=== PATIENT | female | born 1985 | race African-American/Black ===

== ENCOUNTER 2016-07-01 01:46 | Outpatient (CLI) | payer MEDICAID ==
[2016-07-01 03:13] LABS: APPEARANCE,URINE SLIGHTLY-CLOUDY; BILIRUBIN,URINE NEGATIVE (NEGATIVE); GLUCOSE, URINE NEGATIVE (NEGATIVE); KETONES,URINE TRACE mg/dL (NEGATIVE); LEUKOCYTE ESTERASE,URINE LARGE (NEGATIVE); NITRITE,URINE NEGATIVE (NEGATIVE); PROTEIN,URINE 30 mg/dL (NEGATIVE); URINE SPECIFIC GRAVITY 1.008; UROBILINOGEN,URINE NEGATIVE mg/dL (<2.0)
[2016-07-01 03:14] LABS: URINE BARBITURATES SCREEN NEGATIVE; URINE METHADONE SCREEN NEGATIVE; URINE OPIATES LOW NEGATIVE; URINE PHENCYCLIDINE SCREEN NEGATIVE
--- NOTE | 2016-07-01 04:45 | L&D Admission Assessment ---
LD ADM ASMT Datetime Report Generated by CPN: 07/01/2016 04:45 PATIENT ASSESSMENT Assessment Type: Triage (07/01/2016 02:16:Isis Aiken) WEIGHT Weight (lb): 139 (07/01/2016 02:03:QS system process) Weight (kg): 63.2 (07/01/2016 02:03:QS system process) PAIN Pain Scale: 3 (07/01/2016 02:16:Isis Aiken) Pain Presence: Constant (07/01/2016 02:16:Isis Aiken) Pain Type: Cramping (07/01/2016 02:16:Isis Aiken) Pain Location: Back (07/01/2016 02:16:Isis Aiken) Pain Goal: 0 (07/01/2016 02:16:Isis Aiken) Pain Related to Contraction: No (07/01/2016 02:16:Isis Aiken) CONTRACTIONS Frequency (min): none (07/01/2016 02:45:Isis Aiken) Resting Tone [place]: Relaxed (07/01/2016 02:45:Isis Aiken) NEURO Level of Consciousness: Fully Conscious (07/01/2016 02:16:Isis Aiken) DTR's/Clonus: DTRs 2+; No Clonus (07/01/2016 02:16:Isis Aiken) Headache: Denies (07/01/2016 02:16:Isis Aiken) Dizziness: No (07/01/2016 02:16:Isis Aiekn) Blurred Vision: No (07/01/2016 02:16:Isis Aiken) Extremity Numbness/Tingling : None (07/01/2016 02:16:Isis Aiken) Extremity Movement: Full Range of Motion (07/01/2016 02:16:Isis Aiken) CARDIOVASCULAR Heart Rhythm: Regular (07/01/2016 02:16:Isis Aiken) Nailbeds: [place] (07/01/2016 02:16:Isis Aiken) Capillary Refill: Less than 3 Seconds (07/01/2016 02:16:Isis Aiken) Lower Extremities Edema: None (07/01/2016 02:16:Isis Aiken) Lower Extremities Edema Degree: None (07/01/2016 02:16:Isis Aiken) Upper Extremities Edema: None (07/01/2016 02:16:Isis Aiken) Upper Extremities Edema Degree: None (07/01/2016 02:16:Isis Aiken) Facial Edema: None (07/01/2016 02:16:Isis Aiken) DVT RISK ASSESSMENT DVT Risk Age: Age less than 41 years (07/01/2016 02:16:Isis Aiken) DVT Risk BMI: BMI<31 (07/01/2016 02:16:Isis Aiken) DVT Risk Surgery: None Applicable (07/01/2016 02:16:Isis Aiken) DVT Risk Other: Women Only- or (<1 month) (07/01/2016 02:16:Isis Aiken) DVT Risk Total: 1 (07/01/2016 02:16:QS system process) DVT Risk Text: Low Risk (<10%) No specific measures, early ambulation (07/01/2016:16:QS system process) RESPIRATORY Respiratory Effort: Unlabored (07/01/2016 02:16:Isis Aiken) Breath Sounds, Left: Clear and Equal (07/01/2016 02:16:Isis Aiken) Breath Sounds, Right: Clear and Equal (07/01/2016 02:16:Isis Aiken) Cough Productivity: None (07/01/2016 02:16:Isis Aiken) GASTROINTESTINAL Nausea/Vomiting: Denies (07/01/2016 02:16:Isis Aiken) Bowel Sounds: Normoactive (07/01/2016 02:16:Isis Aiken) RUQ Epigastric Pain: Denies (07/01/2016 02:16:Isis Aiken) Bowel Patterns: Soft, Formed Stool (07/01/2016 02:16:Isis Aiken) Hemorrhoids: None (07/01/2016 02:16:Isis Aiken) Diet Type: Regular diet (07/01/2016 02:16:Isis Aiken) Last Meal: 07/01/2016 21:00 (07/01/2016 02:16:Isis Aiken) GENITOURINARY Bladder: Nondistended (07/01/2016 02:16:Isis Aiken) Frequency of Urination: No (07/01/2016 02:16:Isis Aiken) Urination Burning: No (07/01/2016 02:16:Isis Aiken) CVA Tenderness: No (07/01/2016 02:16:Isis Aiken) Vaginal Bleeding: None (07/01/2016 02:16:Isis Aiken) Vaginal Discharge Amount: None (07/01/2016 02:16:Isis Aiken) INTEGUMENTARY Skin Color: Normal for Race (07/01/2016 02:16:Isis Aiken) Skin Temperature: Warm (07/01/2016 02:16:Isis Aiken) Skin Moisture: Dry (07/01/2016 02:16:Isis Aiken) Surgical Scars: previous c/s abdomin (07/01/2016 02:16:Isis Aiken) Body Piercings/Tattoos: tatoos x5 ears pierced (07/01/2016 02:16:Isis Aiken) WILLIAM SKIN ASSESSMENT William Scale Sensory Perception: No Impairment- Responds to verbal commands. Has no sensory deficit which would limit ability to feel or voice pain or discomfort (07/01/2016 02:16:Isis Aiken) William Scale Moisture: Rarely Moist- Skin is usually dry. Linen only requires changing at routine intervals (07/01/2016 02:16:Isis Aiken) William Scale Activity: Walks Frequently- Walks outside the room at least twice a day and inside room at least every 2 hours during the day. (07/01/2016 02:16:Isis Aiken) William Scale Mobility: No Limitations- Makes major and frequent changes in position without assistance (07/01/2016 02:16:Isishenok Aiken) William Scale Nutrition: Excellent- Eats most of every meal. Never refuses a meal. Usually eats a total of 4 or more servings of meat and dairy products. Occasionally eats between meals. Does not require supplementation (07/01/2016 02:16:Isis Aiken) William Scale Friction and Shear: No Apparent Problem- Moves in bed and in chair independently and has sufficient muscle strength to lift up completely during move. Maintains good position in bed or chair at all times (07/01/2016 02:16:Isis Aiken) William Scale Total: 23 (07/01/2016 02:16:QS system process) William Scale Risk: No Risk of Pressure Ulcer Noted at this Time (07/01/2016 02:16:QS system process) SUPPORT Family Support: Significant Other supportive, at bedside frequently (07/01/2016 02:16:Isis Aiken) Emotional State: Calm/Relaxed (07/01/2016 02:16:Isis Aiken) SAFETY Call De La Torre Within Reach: Yes (07/01/2016 02:16:Isis Aiken) Side Rails Up: Yes (07/01/2016 02:16:Isis Aiken) Bed Wheels Locked: Yes (07/01/2016 02:16:Isis Aiken) Arm Bands Present: Yes (07/01/2016 02:16:Isis Aiken) Isolation: [place] (07/01/2016 02:16:Isis Aiken) FALL SCREEN Fall Risk History of Falling: (0) No (07/01/2016 02:16:Isis Aiken) Fall Risk Secondary Diagnosis: (0) No (07/01/2016 02:16:Isis Attila) Fall Risk Ambulatory Aid: (0) None/Bedrest/Wheelchair/Nurse Assist (07/01/2016 02:16:Isis Aiken) Fall Risk IV Therapy: (0) No (07/01/2016 02:16:Isis Aiken) Fall Risk Gait: (0) Normal/Bedrest/Immobile (07/01/2016 02:16:Isis Aiken) Fall Risk Mental Status: (0) Oriented to Own Ability (07/01/2016 02:16:Isis Aiken) Fall Risk Score: 0 (07/01/2016 02:16:QS system process) Fall Risk Score Definition: No Risk: No action required (07/01/2016 02:16:QS system process) RECENT TRAVEL/INFECTIOUS DISEASE Recent Exp Communicable Disease: No (07/01/2016 02:16:Isishenok Aiken) Cough or Fever: No (07/01/2016 02:16:Isis Attila) Foreign Travel Past 10 Days: No (07/01/2016 02:16:Isishenok Aiken) Open Wounds or Sores: No (07/01/2016 02:16:Isishenok Aiken) Prior Antibiotic Resistance Tx: No (07/01/2016 02:16:Isis Attila) BABY A FHR Baseline Rate (bpm) Baby A: 150 (07/01/2016 02:05:Isishenok Aiken)
--- NOTE | 2016-07-01 04:45 | L&D General Admission ---
General Admit Datetime Report Generated by CPN: 07/01/2016 04:45 INFORMATION Patient Age: 31 (07/01/2016 01:47:QS system process) EDC: 11/16/2016 00:00 (07/01/2016 02:01:Isis Aiken) : 3 (07/01/2016 02:01:Isis Aiken) Para: 2 (07/01/2016 02:01:Isis Aiken) Term: 1 (07/01/2016 02:01:Isis Aiken) : 1 (07/01/2016 02:01:Isis Aiken) Livin (07/01/2016 02:01:Isis Aiken) Cesareans: 2 (07/01/2016 02:01:Isis Aiken) Baby, Number in Womb: 1 (07/01/2016 02:01:Isis Aiken) CARE Primary Harp Action Assembler: [facility] (07/01/2016 02:01:Isis Aiken) Height (in): 60 (07/01/2016 02:03:QS system process) ALLERGIES Medication Allergy: No (07/01/2016 02:01:Isis Aiken) Medication Allergies: No Known Drug Allergies (07/01/2016) (07/01/2016 02:02:QS system process) Latex Allergy: No Latex Allergies (07/01/2016 02:01:Isis Aiken) Food Allergies: none (07/01/2016 02:01:Isis Aiken) Environmental Allergies: none (07/01/2016 02:01:Isis Aiken) COMMUNICATION Primary Language: Macanese (07/01/2016 02:01:Isis Aiken) Medical Tx Preferred Language: Macanese (07/01/2016 02:01:Isis Aiken) DEMOGRAPHICS Address: [address] [place] [address] [place] [address] (07/01/2016 01:47:QS system process) Zipcode: [address] (07/01/2016 01:47:QS system process) Home (07/01/2016 01:47:QS system process) SSN: [id number] (07/01/2016 01:47:QS system process) Next of Kin Name: LAYO HERNANDEZ (07/01/2016 01:47:QS system process) Next of Kin (07/01/2016 01:47:QS system process) Next of Kin Relationship: MO (07/01/2016 01:47:QS system process) Date of : 1985 (07/01/2016 01:47:QS system process) Marital Status: Single (07/01/2016 01:47:QS system process) Sex: Female (07/01/2016 01:47:QS system process) Race: (07/01/2016 01:47:QS system process) Ethnicity: Non- or (07/01/2016 01:47:QS system process) Scientologist: None (07/01/2016 01:47:QS system process) DRUG AND ALCOHOL USE Alcohol: No (07/01/2016 02:01:Isis Aiken) Cigarettes: Never Smoker. [id number] (07/01/2016 02:01:Isis Aiken) Marijuana: No (07/01/2016 02:01:Isis Aiken) Cocaine: No (07/01/2016 02:01:Isis Aiken) Other Illicit Drugs: No (07/01/2016 02:01:Isis Aiken) VACCINE HISTORY Influenza Vaccine: Yes (07/01/2016 02:01:Isis Aiken) Influenza Date: 2016 (07/01/2016 02:01:Isis Aiken) Pneumococcal Vaccine: No (07/01/2016 02:01:Isis Aiken) Tetanus Vaccine: No (07/01/2016 02:01:Isis Aiken) Tdap Vaccine: No (07/01/2016 02:01:Isis Aiken) Hepatitis B Vaccine: No (07/01/2016 02:01:Isis Aiken) Sleeve Setter Lockstitch: [facility] (07/01/2016 02:01:Isis Aiken) Feeding Preference: Both (07/01/2016 02:01:Isis Aiken) Circumcision: Yes (07/01/2016 02:01:Isis Aiken) Tubal Ligation: No (07/01/2016 02:01:Isis Aiken) Tubal Authorization Signed: No (07/01/2016 02:01:Isis Aiken) Consent: N/A (07/01/2016 02:01:Isis Aiken) Consent Signed: No (07/01/2016 02:01:Isis Aiken) Pain Management Plans: Spinal (07/01/2016 02:01:Isis Aiken) Support Person: Chris (07/01/2016 02:01:Isis Aiken) Support Person Relationship: Significant Other (07/01/2016 02:01:Isis Aiken) LIVING SITUATION/DISCHARGE PLAN Living Arrangements: House (07/01/2016 02:01:Isis Aiken) Adequate Access to:: Electric; Heat; Refrigeration; Plumbing/Running water; Phone; Transportation (07/01/2016 02:01:Isis Aiken) WIC Program: Yes (07/01/2016 02::Isis Aiken) Discharge Knocker Off Person: Chris (07/01/2016 02:01:Isis Aiken) Person to Help after Discharge: Chris (07/01/2016 02:01:Isis Aiken) Currently Using Commun Resources: Yes (07/01/2016 02:01:Isis Aiken) Specify Current Resource Used: [facility] (07/01/2016 02:01:Isis Aiken) OB/PREVIOUS HISTORY Previous Procedures: Ultrasound; NST (07/01/2016 02:01:Isis Aiken) Current Procedures: Ultrasound; NST (07/01/2016 02:01:Isis Aiken) History of Previous : No (07/01/2016 02:01:Isis Aiken) History of Gestational Diabetes: No (07/01/2016 02:01:Isis Aiken) History of PIH: No (07/01/2016 02:01:Isis Aiken) History of Incompetent Cervix: No (07/01/2016 02:01:Isis Aiken) History of Placenta Previa/Abrup: No (07/01/2016 02:01:Isis Aiken) History of Macrosomia: No (07/01/2016 02:01:Isis Aiken) History of IUGR: No (07/01/2016 02:01:Isis Aiken) History of Hemorrhage: No (07/01/2016 02:01:Isis Aiken) History of Loss/Stillborn: No (07/01/2016 02:01:Isis Aiken) History of : No (07/01/2016 02:01:Isis Aiken) History of D (Rh) Sensitization: No (07/01/2016 02:01:Isis Aiken) History Recurrent Loss/Stillborn: No (07/01/2016 02:01:Isis Aiken) History Depression/PP Depression: No (07/01/2016 02:01:Isis Aiken) History of Uterine Anomaly/TRENTON: No (07/01/2016 02:01:Isis Aiken) History of Infertility: No (07/01/2016 02:01:Isis Aiken) History of ART Treatment: No (07/01/2016 02:01:Isis Aiken) History of TRENTON: No (07/01/2016 02:01:Isis Aiken) Comments Obstetrical History: G1-2008 39weeks-c/s for failure to progress G2-2008 32weeks placenta abruption repeat c/s G3-2016 current (07/01/2016 02:01:Isis Aiken) MEDICAL HISTORY Med Hx Diabetes: No (07/01/2016 02:01:Isis Aiken) Med Hx Hypertension: No (07/01/2016 02:01:Isis Aiken) Med Hx Heart Disease: No (07/01/2016 02:01:Isis Aiken) Med Hx Autoimmune Disorder: No (07/01/2016 02:01:Isis Aiken) Med Hx Kidney Disease/UTI: No (07/01/2016 02:01:Isis Aiken) Med Hx Neurologic/Epilepsy: No (07/01/2016 02:01:Isis Aiken) Med Hx Psychiatric Disorders: No (07/01/2016 02:01:Isis Aiken) Med Hx Hepatitis/Liver Disease: No (07/01/2016 02:01:Isis Aiken) Med Hx Varicosities/Phlebitis: No (07/01/2016 02:01:Isis Aiken) Med Hx Thyroid Dysfunction: No (07/01/2016 02:01:Isis Aiken) Med Hx Trauma/Violence: No (07/01/2016 02:01:Isis Aiken) Med Hx Blood Transfusion: No (07/01/2016 02:01:Isis Aiken) Med Hx Pulmonary (Asthma,TB): Yes (07/01/2016 02:01:Isis Aiken) Med Hx Breast: No (07/01/2016 02:01:Isis Aiken) Med Hx APPLICATIONS SUPPORT SPECIALIST Surgery: No (07/01/2016 02:01:Isis Aiken) Med Hx Hospitalization/Surgery: No (07/01/2016 02:01:Isis Aiken) Med Hx Anesthetic Complications: No (07/01/2016 02:01:Isis Aiken) Med Hx Abnormal Pap Smear: No (07/01/2016 02:01:Isis Aiken) Other Medical Diseases: No (07/01/2016 02:01:Isis Aiken) Med Hx Significant Family Hx: No (07/01/2016 02:01:Isis Aiken) Details of Med/Surg Hx: rescue inhaler if needed (07/01/2016 02:01:Isis Aiken) INFECTIOUS HISTORY Inf Hx Gonorrhea: No (07/01/2016 02:01:Isis Aiken) Inf Hx Chlamydia: No (07/01/2016 02:01:Isis Aiken) Inf Hx Syphilis: No (07/01/2016 02:01:Isis Aiken) Inf Hx HIV/AIDS: No (07/01/2016 02:01:Isis Aiken) Inf Hx Human Papilloma Virus: No (07/01/2016 02:01:Isis Aiken) Inf Hx Pt/Partner Genital Herpes: No (07/01/2016 02:01:Isis Aiken) Inf Hx Tuberculosis/Exposure: No (07/01/2016 02:01:Isis Aiken) Inf Hx Hepatitis B,C: No (07/01/2016 02:01:Isis Aiken) Inf Hx Rash or Viral Illness: No (07/01/2016 02:01:Isis Aiken) GENETIC HISTORY Gen Hx Age >=35 at [place]ER[place]: No (07/01/2016 02:01:Isis Aiken) Gen Hx Thalassemia: No (07/01/2016 02:01:Isis Aiken) Gen Hx Congenital Heart Defect: No (07/01/2016 02:01:Isis Aiken) Gen Hx Neural Tube Defect: No (07/01/2016 02:01:Isis Aiken) Gen Hx Down's Syndrome: No (07/01/2016 02:01:Isis Aiken) Gen Hx Brayan-Sachs: No (07/01/2016 02:01:Isis Aiken) Gen Hx Radha: No (07/01/2016 02:01:Isis Aiken) Gen Hx Familial Dysautonomia: No (07/01/2016 02:01:Isis Aiken) Gen Hx Sickle Cell Disease/Trait: No (07/01/2016 02:01:Isis Aiken) Gen Hx Hemophilia/Blood Disorder: No (07/01/2016 02:01:Isis Aiken) Gen Hx Muscular Dystrophy: No (07/01/2016 02:01:Isis Aiken) Gen Hx Cystic Fibrosis: No (07/01/2016 02:01:Isis Aiken) Gen Hx Huntingtons Chorea: No (07/01/2016 02:01:Isis Aiken) Gen Hx Mental Retardation/Autism: No (07/01/2016 02:01:Isis Aiken) Gen Hx Tested for Fragile X: No (07/01/2016 02:01:Isis Aiken) Gen Hx Other Inher/Chromosomal: No (07/01/2016 02:01:Isis Aiken) Gen Hx Maternal Metabolic DO: No (07/01/2016 02:01:Isis Aiken) Gen Hx Pt Father or FOB Defect: No (07/01/2016 02:01:Isis Aiken) Gen Hx Other Genetic History: No (07/01/2016 02:01:Isis Aiken) Gen Hx Drugs/Meds since LMP: No (07/01/2016 02:01:sIis Aiken)
--- NOTE | 2016-07-01 04:45 | L&D Current Admission ---
Current Admit Datetime Report Generated by CPN: 07/01/2016 04:45 ADMISSION INFORMATION Chief Complaint: back pain bilateral sides possible kidney stone (07/01/2016 02:16:Isis Attila)
--- NOTE | 2016-07-01 04:45 | L&D Flow Sheet ---
LD Flowsheet Datetime Report Generated by CPN: 07/01/2016 04:45 Datetime: 07/01/2016 02:57 Patient Care Comments: patient transfered to ER via wheelchair in stable condition. (Isis Aiken) Datetime: 07/01/2016 02:50 Patient Care Comments: Discussed with the patient plan of care. Patient verbalized understanding. (Isis Aiken) Datetime: 07/01/2016 02:48 Communication Provider Notified (Name): Jose Guadalupe Rizvi CNM at the desk informed of the patient. 20.2 previous and history of placenta abruption. The patient presents with bilateral back pain. She had what appears to be a kidney stone come out at home. FHR 150 no contractions noted. Orders recieved to transfer patient down to ER for further evaluation. (Isis Aiken) Datetime: 07/01/2016 02:45 Vital Signs NBP Sys/Jenni/Mean (mmHg): 90 (QS system process) : 62 (QS system process) : 69 (QS system process) Pulse: 110 (QS system process) Uterine Activity Monitor Mode: External; Palpation (Isis Aiken) Frequency (min): none (Isis Aiken) Resting Tone (Palpate): Relaxed (Isis Aiken) Datetime: 07/01/2016 02:25 I/O Interventions: Clear Liquids Given (Isis Aiken) Datetime: 07/01/2016 02:16 Pain Pain Scale: 3 (Isis Aiken) Pain Presence: Constant (Isis Aiken) Pain Type: Cramping (Isis Aiken) Pain Location: Back (Isis Aiken) Pain Goal: 0 (Isis Aiken) Vaginal Exam Vaginal Bleeding: None (Isis Aiken) Maternal Assessment Level of Consciousness: Fully Conscious (Isis Aiken) DTR's/Clonus: DTRs 2+; No Clonus (Isis Aiken) Headache: Denies (Isis Aiken) Breath Sounds, Left: Clear and Equal (Isis Aiken) Breath Sounds, Right: Clear and Equal (Isis Aiken) Nausea/Vomiting: Denies (Isis Aiken) RUQ Epigastric Pain: Denies (Isis Aiken) Patient Care Patient Position/Activity: Left Lateral (Isis Aiken) Teaching Instructional Method: Verbal (Isis Aiken) Plan of Care: Plan of Care Discussed (Isis Aiken) Unit Routine: [place] to Room; Call De La Torre; Bed; Monitoring (Isis Aiken) Datetime: 07/01/2016 02:05 Assessment A FHR Baseline Rate : 150 (Isis Aiken) Datetime: 07/01/2016 01:57 Patient Care Comments: patient to the unit for labor check (Isis Aiken)
--- NOTE | 2016-07-01 04:45 | L&D Discharge Summary ---
OB Discharge Summary Datetime Report Generated by CPN: 07/01/2016 04:45 DISCHARGE DIAGNOSIS Diagnosis/Symptoms: False Labor Number of Babies in Womb: 1 Parity: 2 DIET/ACTIVITY/RESTRICTIONS Diet: Regular Activity: Normal Activity TEACHING/INSTRUCTIONS/REFERRALS Instructions Given To: patient Instructions Understood: Patient Verbalized Understanding Referrals: None DISCHARGE INFORMATION Discharge Date/Time: 07/01/2016 03:01 Discharged To: Home Discharge Provider Name: J Rizvi CNM Accompanied By: self Discharge Method: Wheelchair Condition: Stable FOLLOW UP INFORMATION Follow Up With: [facility] Follow Up On: 1-2 Days Follow Up Phone Number: [facility] -
--- NOTE | 2016-07-01 04:46 | Antepartum Discharge Summary ---
Antepartum DC Datetime Report Generated by CPN: 07/01/2016 04:45 DIET/ACTIVITY/RESTRICTIONS Diet: Regular (07/01/2016 03:01:Isis Aiken) Activity: Normal Activity (07/01/2016 03:01:Isis Aiken) TEACHING/INSTRUCTIONS/REFERRALS Instructions Given To: patient (07/01/2016 03:01:Isis Aiken) Instructions Understood: Patient Verbalized Understanding (07/01/2016 03:01:Isis Aiken) Referrals: None (07/01/2016 03:01:Isis Aiken) DISCHARGE INFORMATION Discharge Date/Time: 07/01/2016 03:01 (07/01/2016 03:01:Isis Aiken) Discharged To: Home (07/01/2016 03:01:Isis Aiken) Discharge Provider Name: Jose Guadalupe Rizvi CN (07/01/2016 03:01:Isis Aiken) Accompanied By: self (07/01/2016 03:01:Isis Aiken) Discharge Method: Wheelchair (07/01/2016 03:01:Isis Aiken) Condition: Stable (07/01/2016 03:01:Isis Aiken) FOLLOW UP INFORMATION Follow Up With: [facility] (07/01/2016 03:01:Isis Aiken) Follow Up On: 1-2 Days (07/01/2016 03:01:Isis Aiken) Follow Up Phone Number: [facility] - (07/01/2016 03:01:Isis Aiken)
== END 2016-07-01 03:00 | disposition home or self-care (01) ==
LOC: LC 01:46
PROVIDERS: ATTEND Student in an Organized Health Care Education/Training Program
PROC: 4A1HXCZ Monitoring of Products of Conception, Cardiac Rate, External Approach (ICD-10-PCS; principal; 2016-07-01)
DX: O47.02 False labor before 37 completed weeks of gestation, second trimester (principal); Z3A.20 20 weeks gestation of pregnancy
CPT/HCPCS: 80307; 81001

== ENCOUNTER 2016-07-01 03:11 | Emergency (ER) | payer MEDICAID ==
[2016-07-01] MEDS ORDERED: CEFTRIAXONE 1 GM/D5W RTU 50 ML IV ONE (03:54)
[2016-07-01] MEDS ORDERED: OXYCODONE-ACETAMINOPHEN 5-325 MG TABLET PO ONE (04:02)
[2016-07-01] MEDS ORDERED: CEFTRIAXONE INJ 1000 MG VIAL IM ONE (04:02)
[2016-07-01] MEDS ORDERED: LIDOCAINE 1% INJ-PF (10 MG/ML) 30 ML SDV INFIL ONE (04:02)
--- NOTE | 2016-07-01 04:12 | ER Document Report ---
ED GI/ - General Mode of Arrival: Ambulatory Information source: Patient TRAVEL OUTSIDE OF THE [place] IN LAST 30 DAYS: No - HPI Patient complains to provider of: Other - lower back pain Associated symptoms: Other - See above - General Chief Complaint: Possible Kidney Stone Stated Complaint: lower back pain Notes: Patient is a 31 year old female who presents to the emergency department complaining of low back pain. Patient reports that the pain came on all of a sudden and is located across her lower back. Patient states that she passed what she believes to be a kidney stone this evening and has it in a specimen cup. Patient reports that she has been taking Tylenol for the pain with little to no relief. Patient denies nausea. (CHRISTINE GARCIA) - Related Data Allergies/Adverse Reactions: No Known Drug Allergies Allergy (Verified 07/01/16 02:01) Past Medical History - General Information source: Patient - Social History Smoking Status: Unknown if Ever Smoked Family History: Reviewed & Not Pertinent Patient has suicidal ideation: No Patient has homicidal ideation: No Review of Systems - Review of Systems Constitutional: No symptoms reported EENT: No symptoms reported Cardiovascular: No symptoms reported Respiratory: No symptoms reported Gastrointestinal: denies: Nausea Genitourinary: No symptoms reported Female Genitourinary: See HPI, Musculoskeletal: See HPI, Back pain - lower Skin: No symptoms reported Hematologic/Lymphatic: No symptoms reported Neurological/Psychological: No symptoms reported -: Yes All other systems reviewed and negative Physical Exam - Vital signs Interpretation: Normal - General General appearance: Alert, Other - Appears uncomfortable - HEENT Head: Normocephalic, Atraumatic - Respiratory Respiratory status: No respiratory distress - Back Back: Other - Flanks tender to palpation bilaterally - Extremities General upper extremity: Normal inspection General lower extremity: Normal inspection - Neurological Neuro grossly intact: Yes Cognition: Normal Orientation: AAOx4 Fernandez Coma Scale Eye Opening: Spontaneous Fernandez Coma Scale Verbal: Oriented Fernandez Coma Scale Motor: Obeys Commands [place] Coma Scale Total: 15 Speech: Normal - Psychological Associated symptoms: Normal affect, Normal mood - Skin Skin Temperature: Warm Skin Moisture: Dry Skin Color: Normal Course - Re-evaluation Re-evalutation: 07/01/16 05:33 Patient improved after antibiotics and pain medication. Able to take by mouth. Patient will be discharged home and is to follow-up with her DIRECTOR RADIO. Culture has been sent. Stone has been sent for pathology. Stable for discharge. Return immediately if any worsening or concerning symptoms. (NILA DEL CID) - Vital Signs Vital signs: Temp Pulse Resp BP Pulse Ox 99.1 F 108 H 18 117/69 98 07/01/16 05:22 07/01/16 05:22 07/01/16 05:22 07/01/16 04:47 07/01/16 05:22 Discharge - Discharge Clinical Impression: Kidney stone, UTI (urinary tract infection) Qualifiers: Urinary tract infection type: site unspecified Hematuria presence: with hematuria Qualified Code(s): N39.0 - Urinary tract infection, site not specified ; R31.9 - Hematuria, unspecified Condition: Stable Disposition: HOME, SELF-CARE Instructions: Urinary Tract Infection ([facility]), Kidney Stone ([facility]) Additional Instructions: Your stone has been sent to pathology. Please follow-up with your DIRECTOR RADIO this week. Please return if you have any worsening or concerning symptoms. Prescriptions: Cefdinir [Omnicef 300 mg Capsule] 1 cap PO BID #30 capsule Metoclopramide HCl [Reglan 10 mg Tablet] 1 - 2 tab PO ASDIR PRN #25 tablet PRN Reason: Oxycodone HCl/Acetaminophen [Percocet 5-325 mg Tablet] 1 tab PO ASDIR PRN #15 tab PRN Reason: Forms: Return to Work Scribe Attestation: 07/01/16 05:34 I personally performed the services described in the documentation, reviewed and edited the documentation which was dictated to the scribe in my presence, and it accurately records my words and actions. (NILA DEL CID) Scribe Documentation - Scribe Written by Scribe:: pb Hatch, 07/01/16, 5507 acting as scribe for :: Nori
[2016-07-01 05:30] VITALS: BP 117/69
== END 2016-07-01 05:37 | disposition home or self-care (01) ==
LOC: ER 03:11
DX: N20.0 Calculus of kidney (principal); N39.0 Urinary tract infection, site not specified; R31.9 Hematuria, unspecified; M54.5 Low back pain; Z33.1 Pregnant state, incidental
CPT/HCPCS: 99284; 96372; 87086; 82370; J3490; J0696

== ENCOUNTER 2016-09-26 23:22 | Inpatient (IN) | payer MEDICAID ==
[2016-09-27 00:01] LABS: APPEARANCE,URINE CLEAR; BILIRUBIN,URINE NEGATIVE (NEGATIVE); GLUCOSE, URINE 50 mg/dL (NEGATIVE); KETONES,URINE NEGATIVE (NEGATIVE); LEUKOCYTE ESTERASE,URINE NEGATIVE (NEGATIVE); NITRITE,URINE NEGATIVE (NEGATIVE); PROTEIN,URINE NEGATIVE (NEGATIVE); URINE SPECIFIC GRAVITY 1.009; UROBILINOGEN,URINE NEGATIVE mg/dL (<2.0)
[2016-09-27 00:16] LABS: AMNISURE (ROM) POSITIVE (NEGATIVE)
[2016-09-27 00:16] LABS: URINE BARBITURATES SCREEN NEGATIVE; URINE METHADONE SCREEN NEGATIVE; URINE OPIATES LOW NEGATIVE; URINE PHENCYCLIDINE SCREEN NEGATIVE
[2016-09-27] MEDS ORDERED: AZITHROMYCIN 250 MG TABLET ONE (01:37)
[2016-09-27] MEDS ORDERED: AMPICILLIN SOD INJ 2 GM VIAL ONE ×4 (01:38→20:05)
[2016-09-27] MEDS ORDERED: BETAMET ACET/BETAMET NA INJ 6 MG/1 ML ONE (01:38)
[2016-09-27] MEDS ORDERED: AMPICILLIN SOD INJ 2 GM VIAL IV ONE (02:00)
[2016-09-27] MEDS ORDERED: AZITHROMYCIN 1 GM SUSP PACKET PO ONE (02:00)
[2016-09-27] MEDS ORDERED: BETAMET ACET/BETAMET NA INJ 6 MG/1 ML IM ONE (02:00)
[2016-09-27 02:16] LABS: ABSOLUTE BASOPHILS # (AUTO) 0.1 10^3/uL (0.0-0.2); ABSOLUTE EOSINOPHILS # (AUTO) 0.5 10^3/uL (0.0-0.6); ABSOLUTE LYMPHOCYTES (AUTO) 2.2 10^3/uL (0.5-4.7); ABSOLUTE NEUT (AUTO) 7.7 10^3/uL (1.7-8.2); BASOPHILS % (AUTO) 0.5 % (0-2); EOSINOPHILS % (AUTO) 4.4 % (0-6); HEMATOCRIT 31.5 % (36.0-47.0); HEMOGLOBIN 9.9 g/dL (12.0-15.5); HGB HCT DIFFERENCE -1.8; LYMPHOCYTES % (AUTO) 19.3 % (13-45); MEAN CORPUSCULAR HEMOGLOBIN 23.2 pg (27.0-33.4); MEAN CORPUSCULAR HGB CONC 31.4 g/dL (32.0-36.0); MEAN CORPUSCULAR VOLUME 74 fl (80-97); MONOCYTES % (AUTO) 8.3 % (3-13); RED BLOOD COUNT 4.25 10^6/uL (3.72-5.28); RED CELL DISTRIBUTION WIDTH 15.6 % (11.5-14.0); SEGMENTED NEUTROPHILS % (AUTO) 67.5 % (42-78); WHITE BLOOD COUNT 11.5 10^3/uL (4.0-10.5)
[2016-09-27] MEDS ORDERED: ONDANSETRON HCL INJ/PF 4 MG/2 ML SDV ONE (02:40)
[2016-09-27] MEDS ORDERED: ONDANSETRON HCL INJ/PF 4 MG/2 ML SDV IV PRN (02:48)
--- NOTE | 2016-09-27 04:06 | RADIOLOGY REPORT (SQ) ---
EXAM DESCRIPTION: U/S OB LIMITED COMPLETED DATE/TIME: 09/27/2016 3:23 am REASON FOR STUDY: premature rupture of membranes. The patient is 32 weeks . COMPARISON: None. TECHNIQUE: Limited transvaginal and transabdominal grayscale ultrasound for evaluation of specific r equested obstetrical parameters. LIMITATIONS: None. FINDINGS: CERVICAL LENGTH: There is dilation of the internal os measuring 8 mm in AP diameter. Hypo echoic material is seen within the endocervical canal, may represent fluid or mucous. The distal cer vix to the external os is closed measuring 1.1 cm in length. MARY: 6.7 cm. Clear. FHR: 139 beats per minute. PRESENTATION: Vertex. PLACENTA: Fundal. IMPRESSION: LIMITED OBSTETRICAL ULTRASOUND WITH MEASURED PARAMETERS DELINEATED ABOVE. CERVICAL SHORTENING WITH DILATION OF THE INTERNAL OS, WORRISOME FOR CERVICAL INCOMPETENCE. SMALL AMOUNT OF AMNIOTIC FLUID. Trimester of : Third trimester - 28 weeks to delivery. TECHNICAL DOCUMENTATION: JOB ID: [id number] [employer]- All Rights Reserved
[2016-09-27 04:38] LABS: CHLAM PCR NOT DETECTED (NOT DETECT)
[2016-09-27] MEDS: AMPICILLIN SOD INJ 2 GM VIAL IV SCH ×3 (08:06→20:16)
[2016-09-27] MEDS: RINGERS SOLUTION,LACTATED 1,000 ML IV PRN (08:08)
[2016-09-27] MEDS ORDERED: BETAMET ACET/BETAMET NA INJ 6 MG/1 ML IM SCH (10:00)
[2016-09-27] MEDS ORDERED: ONDANSETRON HCL 8 MG TABLET PO ONE (12:33)
[2016-09-27] MEDS ORDERED: ONDANSETRON HCL 8 MG TABLET ONE (12:33)
[2016-09-27] MEDS ORDERED: MAG HYDROX/AL HYDROX/SIMETH SUSP 30 ML UDCUP ONE (23:15)
[2016-09-28] MEDS ORDERED: ZOLPIDEM TARTRATE 5 MG TABLET ONE (00:46)
[2016-09-28] MEDS: ZOLPIDEM TARTRATE 5 MG TABLET PO SCH ×2 (00:46→21:09)
[2016-09-28] MEDS ORDERED: BETAMET ACET/BETAMET NA INJ 6 MG/1 ML ONE (02:24)
[2016-09-28] MEDS ORDERED: AMPICILLIN SOD INJ 2 GM VIAL ONE ×2 (02:24→08:07)
[2016-09-28] MEDS: AMPICILLIN SOD INJ 2 GM VIAL IV SCH ×2 (02:42→08:16)
[2016-09-28] MEDS: ACETAMINOPHEN 325 MG TABLET PO PRN ×3 (11:34→17:28)
[2016-09-28] MEDS: RINGERS SOLUTION,LACTATED 1,000 ML IV PRN (13:36)
--- NOTE | 2016-09-28 13:44 | RADIOLOGY REPORT (SQ) ---
EXAM DESCRIPTION: U/S OB LIMITED COMPLETED DATE/TIME: 09/28/2016 1:25 pm REASON FOR STUDY: MARY, for PPPROM COMPARISON: None. TECHNIQUE: Limited transabdominal grayscale ultrasound for evaluation of specific requested obstetri rocío parameters. LIMITATIONS: None. FINDINGS: CERVICAL LENGTH: Not well seen transabdominally MARY: 15.1 cm. FHR: 115 beats per minute. PRESENTATION: Cephalic. OTHER: No other significant findings. IMPRESSION: Amniotic fluid index 15.1 cm Trimester of : Third trimester - 28 weeks to delivery. TECHNICAL DOCUMENTATION: JOB ID: [id number] [employer]- All Rights Reserved
[2016-09-28] MEDS: AMPICILLIN SODIUM 2 GM in NORMAL SALINE 100 ML IV SCH ×2 (15:13→21:09)
[2016-09-28] MEDS ORDERED: ALBUTEROL SULFATE HFA (90 MCG/PUFF) 200 PUFF/8.5 GM MDI IH ONE (20:26)
[2016-09-28] MEDS: ALBUTEROL SULFATE HFA (90 MCG/PUFF) 8 GM MDI (1 MDI/ER DISP) IH PRN (21:09)
[2016-09-29] MEDS: ACETAMINOPHEN 325 MG TABLET PO PRN ×4 (00:30→20:20)
[2016-09-29] MEDS: RINGERS SOLUTION,LACTATED 1,000 ML IV PRN (02:09)
[2016-09-29] MEDS: AMPICILLIN SODIUM 2 GM in NORMAL SALINE 100 ML IV SCH (02:09)
[2016-09-29 06:10] LABS: ABSOLUTE MONOCYTES (AUTO) 0.9 10^3/uL (0.1-1.4); ABSOLUTE NEUT (AUTO) 10.8 10^3/uL (1.7-8.2); BASOPHILS % (AUTO) 0.3 % (0-2); HEMATOCRIT 22.4 % (36.0-47.0); HGB HCT DIFFERENCE -1.1; LYMPHOCYTES % (AUTO) 14.9 % (13-45); MEAN CORPUSCULAR HEMOGLOBIN 23.8 pg (27.0-33.4); MEAN CORPUSCULAR HGB CONC 31.7 g/dL (32.0-36.0); MEAN CORPUSCULAR VOLUME 75 fl (80-97); MONOCYTES % (AUTO) 6.6 % (3-13); RED BLOOD COUNT 2.98 10^6/uL (3.72-5.28); RED CELL DISTRIBUTION WIDTH 15.5 % (11.5-14.0); SEGMENTED NEUTROPHILS % (AUTO) 78.2 % (42-78); WHITE BLOOD COUNT 13.7 10^3/uL (4.0-10.5)
[2016-09-29 06:14] LABS: HEMOGLOBIN 7.1 g/dL (12.0-15.5)
[2016-09-29] MEDS ORDERED: ACETAMINOPHEN 325 MG TABLET ONE (08:51)
[2016-09-29] MEDS: AMOXICILLIN TRIHYDRATE 500 MG CAPSULE PO SCH ×2 (08:55→18:42)
[2016-09-29] MEDS ORDERED: IPRATROPIUM BROMIDE 0.02% NEB 0.5 MG/2.5 ML AMPUL NEB ONE (09:07)
[2016-09-29] MEDS ORDERED: ALBUTEROL SULFATE 0.083% NEB 2.5 MG/3 ML AMPUL NEB ONE ×2 (09:10→09:15)
[2016-09-29 09:21] LABS: FOLATE 6.77 ng/mL (>2.76)
[2016-09-29] MEDS ORDERED: FERROUS SULFATE 325 MG TABLET PO ONE ×2 (10:37→10:46)
[2016-09-29] MEDS: FERROUS SULFATE 325 MG TABLET PO SCH ×2 (10:42→18:42)
[2016-09-29] MEDS ORDERED: DIPHENHYDRAMINE HCL 50 MG/ML VIAL IV PRN (11:46)
--- NOTE | 2016-09-29 17:08 | PDOC CONSULTATION ---
Consultation Consult Date: 09/29/16 Attending physician:: MARIAELENA CROWELL Consult reason:: Anemia History of Present Illness Admission Date/PCP: 09/27/16 01:16 Patient complains of: Anemia History of Present Illness: DENY GARCIA is a 31 year old female Past Medical History Hematology: Reports: Anemia Past Surgical History Past Surgical History: Reports: None Social History Information Source: Patient Smoking Status: Never Smoker Frequency of Alcohol Use: None Drugs: None - Advance Directive Resuscitation Status: Full Code Family History Family History: Reviewed & Not Pertinent Parental Family History Reviewed: Yes Children Family History Reviewed: Yes Sibling(s) Family History Reviewed.: Yes Medication/Allergy Home Medications: Vit/Iron Fumarate/FA [ Tablet] 1 tab PO DAILY 09/27/16 Allergies/Adverse Reactions: No Known Drug Allergies Allergy (Verified 09/27/16 02:35) Review of Systems Constitutional: ABSENT: chills, fever(s), headache(s), weight gain, weight loss Eyes: ABSENT: visual disturbances Ears: ABSENT: hearing changes Cardiovascular: ABSENT: chest pain, dyspnea on exertion, edema, orthropnea, palpitations Respiratory: ABSENT: cough, hemoptysis Gastrointestinal: ABSENT: abdominal pain, constipation, diarrhea, hematemesis, hematochezia, nausea, vomiting Genitourinary: ABSENT: dysuria, hematuria Musculoskeletal: ABSENT: joint swelling Integumentary: ABSENT: rash, wounds Neurological: ABSENT: abnormal gait, abnormal speech, confusion, dizziness, focal weakness, syncope Psychiatric: ABSENT: anxiety, depression, homidical ideation, suicidal ideation Endocrine: ABSENT: cold intolerance, heat intolerance, polydipsia, polyuria Hematologic/Lymphatic: ABSENT: easy bleeding, easy bruising Physical Exam Vital Signs: Temp Pulse Resp BP Pulse Ox 98.3 F 91 20 112/58 L 100 09/29/16 15:51 09/29/16 15:51 09/29/16 15:51 09/29/16 15:51 09/29/16 15:51 General appearance: PRESENT: no acute distress, well-developed, well-nourished Head exam: PRESENT: atraumatic, normocephalic Eye exam: PRESENT: conjunctiva pink, EOMI, PERRLA. ABSENT: scleral icterus Ear exam: PRESENT: normal external ear exam Mouth exam: PRESENT: moist, tongue midline Neck exam: ABSENT: carotid bruit, JVD, lymphadenopathy, thyromegaly Respiratory exam: PRESENT: clear to auscultation haim. ABSENT: rales, rhonchi, wheezes Cardiovascular exam: PRESENT: RRR. ABSENT: diastolic murmur, rubs, systolic murmur Pulses: PRESENT: normal dorsalis pedis pul Vascular exam: PRESENT: normal capillary refill GI/Abdominal exam: PRESENT: normal bowel sounds, soft. ABSENT: distended, guarding, mass, organolmegaly, rebound, tenderness Rectal exam: PRESENT: deferred Extremities exam: PRESENT: full ROM. ABSENT: calf tenderness, clubbing, pedal edema Neurological exam: PRESENT: alert, awake, oriented to person, oriented to place , oriented to time, oriented to situation, CN II-XII grossly intact. ABSENT: motor sensory deficit Psychiatric exam: PRESENT: appropriate affect, normal mood. ABSENT: homicidal ideation, suicidal ideation Skin exam: PRESENT: dry, intact, warm. ABSENT: cyanosis, rash Results Laboratory Results: 09/29/16 05:15 09/27/16 09/27/16 09/29/16 01:39 01:39 05:15 WBC 11.5 H 13.7 H RBC 4.25 2.98 L Hgb 9.9 L 7.1 L D Hct 31.5 L 22.4 L MCV 74 L 75 L MCH 23.2 L 23.8 L MCHC 31.4 L 31.7 L RDW 15.6 H 15.5 H Plt Count 269 237 Seg Neutrophils % 67.5 78.2 H Lymphocytes % 19.3 14.9 Monocytes % 8.3 6.6 Eosinophils % 4.4 0.0 Basophils % 0.5 0.3 Absolute Neutrophils 7.7 10.8 H Absolute Lymphocytes 2.2 2.0 Absolute Monocytes 1.0 0.9 Absolute Eosinophils 0.5 0.0 Absolute Basophils 0.1 0.0 Retic Count (auto) Absolute Retic Iron TIBC % Saturation Ferritin Vitamin B12 Folate Blood Type B POSITIVE Antibody Screen NEGATIVE 09/29/16 09/29/16 05:15 05:15 WBC RBC Hgb Hct MCV MCH MCHC RDW Plt Count Seg Neutrophils % Lymphocytes % Monocytes % Eosinophils % Basophils % Absolute Neutrophils Absolute Lymphocytes Absolute Monocytes Absolute Eosinophils Absolute Basophils Retic Count (auto) 2.53 Absolute Retic 0.078 Iron < 10.1 L TIBC 495 H % Saturation UNABLE TO CALCULATE Ferritin 4.10 L Vitamin B12 227.0 L Folate 6.77 Blood Type Antibody Screen 09/27/16 03:30 Vaginal/Anorectal Group B Streptococcus Culture - Final NO GROUP B STREPTOCOCCUS RECOVERED Impressions: Obstetrics Ultrasound 09/28/16 00:00 IMPRESSION: Amniotic fluid index 15.1 cm Trimester of : Third trimester - 28 weeks to delivery. Assessment & Plan - Diagnosis (1) Maternal iron deficiency anemia affecting in third trimester, antepartum Is this a current diagnosis for this admission?: YesPlan: Severe iron deficiency anemia, she is getting blood transfusion which we agree with today, ferritin is only 4, plan for IV iron infusion tomorrow. She can have another infusion of IV iron 72 hours after and will order that. She should then have full repletion of iron, hopefully by the time she goes for delivery/ she would then have a hemoglobin in the 9-10 range. - Time Time Spent: 50 to 70 Minutes Critical Time spent with patient: 25-34 minutes
[2016-09-29] MEDS: ZOLPIDEM TARTRATE 5 MG TABLET PO SCH (22:01)
[2016-09-30 01:42] LABS: ABSOLUTE LYMPHOCYTES (AUTO) 2.2 10^3/uL (0.5-4.7); ABSOLUTE MONOCYTES (AUTO) 1.2 10^3/uL (0.1-1.4); ABSOLUTE NEUT (AUTO) 9.6 10^3/uL (1.7-8.2); BASOPHILS % (AUTO) 0.3 % (0-2); EOSINOPHILS % (AUTO) 0.1 % (0-6); HEMATOCRIT 32.5 % (36.0-47.0); HGB HCT DIFFERENCE -1.9; MEAN CORPUSCULAR HEMOGLOBIN 23.7 pg (27.0-33.4); MEAN CORPUSCULAR HGB CONC 31.2 g/dL (32.0-36.0); MEAN CORPUSCULAR VOLUME 76 fl (80-97); MONOCYTES % (AUTO) 9.4 % (3-13); RED BLOOD COUNT 4.29 10^6/uL (3.72-5.28); RED CELL DISTRIBUTION WIDTH 15.4 % (11.5-14.0); SEGMENTED NEUTROPHILS % (AUTO) 73.2 % (42-78); WHITE BLOOD COUNT 13.1 10^3/uL (4.0-10.5)
[2016-09-30] MEDS ORDERED: CEFAZOLIN 2 GM/D5W RTU 2 GM/50 ML RTUPB IV ONE (01:43)
[2016-09-30] MEDS ORDERED: CITRIC ACID/SODIUM CITRATE ORAL SOLN 15 ML UDCUP ONE (01:43)
[2016-09-30 01:50] LABS: HEMOGLOBIN 10.2 g/dL (12.0-15.5)
[2016-09-30] MEDS ORDERED: MIDAZOLAM 2 MG/2 ML INJ ONE (01:58)
[2016-09-30] MEDS ORDERED: OXYTOCIN 10 UNIT/ML VIAL ONE (01:58)
[2016-09-30] MEDS ORDERED: FENTANYL CITRATE INJ/PF 100 MCG/2 ML AMPUL ONE ×2 (01:58→02:17)
[2016-09-30] MEDS ORDERED: EPHEDRINE SULFATE INJ 50 MG/1 ML AMPULE ONE (01:58)
[2016-09-30] MEDS ORDERED: OXYTOCIN/NORMAL SALINE 20 UNIT/1,000 ML RTUINJ ONE (01:58)
[2016-09-30] MEDS ORDERED: PROPOFOL INJ 200 MG/20 ML VIAL IV ONE (01:59)
[2016-09-30] MEDS ORDERED: MISOPROSTOL 0.2 MG TABLET ONE (02:35)
[2016-09-30] MEDS ORDERED: METHYLERGONOVINE MALEATE INJ/PF 0.2 MG/1 ML AMPULE ONE (02:35)
[2016-09-30] MEDS ORDERED: MORPHINE SULFATE 10 MG/ML INJ IV PRN (02:37)
[2016-09-30] MEDS ORDERED: PROMETHAZINE HCL INJ 25 MG/1 ML VIAL IV PRN ×3 (02:37→04:32)
[2016-09-30] MEDS ORDERED: MEPERIDINE HCL/PF INJ 25 MG/1 ML DISP.SYRIN IV PRN (02:37)
[2016-09-30] MEDS ORDERED: FENTANYL CITRATE INJ/PF 100 MCG/2 ML AMPUL IV PRN ×3 (02:37)
[2016-09-30] MEDS ORDERED: ONDANSETRON HCL INJ/PF 4 MG/2 ML SDV IV PRN (02:37)
[2016-09-30] MEDS ORDERED: DIPHENHYDRAMINE HCL 50 MG/ML VIAL IV PRN (02:37)
[2016-09-30] MEDS ORDERED: ACETAMINOPHEN 100 ML IV ONE (03:03)
[2016-09-30] MEDS ORDERED: HYDROMORPHONE HCL INJ/PF 2 MG/ML AMPULE IV PRN (04:32)
[2016-09-30] MEDS ORDERED: MEASLES,MUMPS&RUBELLA VACC/PF 0.5 ML VIAL SUBCUT PRN (04:32)
[2016-09-30] MEDS ORDERED: SIMETHICONE 80 MG TAB.CHEW PO PRN (04:32)
[2016-09-30] MEDS ORDERED: ACETAMINOPHEN 325 MG TABLET PO PRN (04:32)
[2016-09-30] MEDS ORDERED: OXYCODONE-ACETAMINOPHEN 5-325 MG TABLET PO PRN ×2 (04:32→23:42)
[2016-09-30] MEDS ORDERED: DIPH/PERTUSS(ACELL)/TETANUS VAC/PF 0.5 ML SYR (>=10YO) IM PRN (04:32)
--- NOTE | 2016-09-30 05:06 | Admission Physical ---
Datetime Report Generated by CPN: 09/30/2016 05:05 CURRENT ADMISSION Chief Complaint: Suspected Ruptured Membranes Chief Complaint Other: Oligo on sono, vtx presentation Indication for Induction: Not Applicable Admit Plan: Admit to Unit Admit Plan- Other: Plan antibiotics and steroids ALLERGIES Medication Allergies: No Medication Allergies: No Known Drug Allergies (09/27/2016) Medication Allergies: No Known Drug Allergies (07/01/2016) Latex: No Latex Allergies Food Allergies: none Environmental Allergies: none OBSTETRICAL HISTORY EDC: 11/16/2016 00:00 : 4 Para: 2 Term: 1 : 1 IAB: 1 Ectopic: 0 Livin Cesareans: 2 VBACs: 0 Multiple Births: 0 Gestational Diabetes: No Rh Sensitization: No Incompetent Cervix: No [place]ON: No Infertility: No ART Treatment: No Uterine Anomaly: No IUGR: No Hx Previous C/S: Yes Macrosomia: No Hx Loss/Stillborn: No PIH: No Hx : No Placenta Previa/Abruption: Yes Depression/PP Depression: No PTL/PROM: Yes Post Hemorrhage: No Current Procedures: Ultrasound; NST Obstetrical History Comments: G1-2007 39weeks-c/s for failure to progress G2-2008 34weeks placenta abruption repeat c/s-needed blood transfusion current,kidney stone, hospitalization for hyperemesis SEE RECORDS Alcohol: No Marijuana : No Cocaine: No Other Illicit Drugs: No Cigarettes: Never Smoker. [id number] MEDICAL HISTORY Diabetes: No Blood Transfusion: Yes Pulmonary Disease (Asthma, TB): Yes Breast Disease: No Hypertension: No Reed Man Surgery: No Heart Disease: No Hosp/Surgery: Yes Autoimmune Disorder: No Anesthetic Complications: No Kidney Disease: No Abnormal Pap Smear: No Neuro/Epilepsy: Yes Psychiatric Disorders: No Other Medical Diseases: No Hepatitis/Liver Disease: No Significant Family History: No Varicosities/Phlebitis: No Trauma/Violence : No Thyroid Dysfunction: No Medical History Comments: rescue inhaler if needed pt told by pulmonary 2 yrs ago that she may have sarcoidosis affecting her lungs, she was supposed to have a lung biopsy but never returned for care blood transfusion after placental abruption G2 seizure during hospitalization for hyperemesis G3 INFECTIOUS HISTORY Gonorrhea: No Genital Herpes: No Chlamydia: No Tuberculosis: No Syphilis: No Hepatitis: No HIV/AIDS Exposure: No Rash or Viral Illness: No HPV: No PHYSICAL EXAM General: Normal HEENT: Normal Neurologic: Normal Thyroid: Normal Heart: Normal Lungs: Normal Breast: Deferred Back: Normal Abdomen: Normal Genitourinary Exam: Normal Extremities: Normal DTRs: Normal Pelvic Type: Adequate Vital Signs: Reviewed VAGINAL EXAM Dilatation: 0 Effacement: 0 Station: -3 MEMBRANES Pooling: Positive Membranes: Ruptured FETUS A EGA: 32.6 FHR- Baseline: 120 Variability: Moderate 6-25bpm Decelerations: None Admit Comment: will check official sono PLANS FOR LABOR AND DELIVERY Pain Management: Spinal Feeding Preference: Both Benefit of Breast Feed Discussed: Yes Circumcision: Yes INFORMED CONSENT Signature: with User ID: [email or web address]
[2016-09-30] MEDS: ALBUTEROL SULFATE HFA (90 MCG/PUFF) 8 GM MDI (1 MDI/ER DISP) IH PRN (05:49)
--- NOTE | 2016-09-30 05:52 | Delivery Summary ---
Del Sum A-C Datetime Report Generated by CPN: 09/30/2016 05:52 DELIVERY PERSONNEL DELIVERY PERSONNEL: ,[phone] Delivery Doctor:: Jose J Fontenot DO Anesthesiologist:: Johnny Palmer MD SHOPPER'S AIDE:: Payton Fournier CRNA Labor and Delivery Nurse:: Nel Howard RNsuperior court judge Nurse:: Ariela Bills RN Neonatal Nurse Practitioner:: GARY Pichardo Nursery Nurse:: Kennedi Helms RN MSN Digital Intern/BUILDING PRINCIPAL: Nancy Donovanr, [employer] ADMINISTRATOR Digital Intern/BUILDING PRINCIPAL: Lizzeth Govea, ST MATERNAL INFORMATION Delivery Anesthesia: General Medications After Delivery: Pitocin Bolus-Please Comment; Pitocin Drip 20 Units/1000ml NSS Estimated Blood Loss (ml): 600 Maternal Complications: Premature Rupture of Membranes Other Maternal Complications: PPPROM LABOR SUMMARY EDC: 11/16/2016 00:00 No. Babies in Womb: 1 Labor Anesthesia: None LABOR INFORMATION Reason for Induction: Not Applicable Onset of Labor: 09/30/2016 01:44 Group B Beta Strep: 1 NO GROUP B STREPTOCOCCUS RECOVERED Steroids Given: Full Course; > 24 Hours before Delivery MEMBRANES Membranes Rupture Method: Spontaneous Rupture of Membranes: 09/25/2016 09:00 Length of Rupture (hr): 113.43 Amniotic Fluid Color: Clear Amniotic Fluid Amount: Moderate Amniotic Fluid Odor: Normal STAGES OF LABOR Stage 3 hr: 0 Stage 3 min: 1 Total Time in Labor hr: 0 Total Time in Labor min: 43 CSECTION DELIVERY Primary Indication: > 2 Previous C-Sections CSection Urgency: Non-Scheduled CSection Incidence: Repeat Labor: Labor Elective: N/A CSection Incision: Lower Uterine Transverse BABY A INFORMATION Delivery Date/Time: 09/30/2016 02:26 Method of Delivery: Born in Route : No : N/A Forceps: N/A Vacuum Extraction: N/A Shoulder Dystocia : No PRESENTATION/POSITION BABY A Presentation: Cephalic Cephalic Presentation: Vertex Breech Presentation: N/A PLACENTA INFORMATION BABY A Placenta Delivery Time : 09/30/2016 02:27 Placenta Method of Delivery: Expressed Placenta Status: Delivered SCORES BABY A Heart Rate 1 min: >100 bpm Resp Effort 1 min: Good Cry Reflex Irritability 1 min: Cough or Sneeze or Pulls Away Muscle Tone 1 min: Active Motion Color 1 min: Blue/Pale Resuscitation Effort 1 min: Tactile Stimulation SCORE 1 MIN: 8 Heart Rate 5 min: >100 bpm Resp Effort 5 min: Good Cry Reflex Irritability 5 min: Cough or Sneeze or Pulls Away Muscle Tone 5 min: Active Motion Color 5 min: Body [place], Extremities Blue SCORE 5 MIN: 9 INFORMATION BABY A Gestational Age at Delivery: 33.2 Gestational Status: - <34 Weeks Infant Outcome : Liveborn Condition : Stable Infant Sex: Male IDENTIFICATION BABY A Infant Verification Date/Time: 09/30/2016 02:48 ID Band Number: [id number] Mother's Name Verified: Yes RN Verifying Infant: sAhley Lam RN Additional Verifying Personnel: Suzette Carlson RN WEIGHT/LENGTH BABY A Infant Birthweight (gm): 2042 Infant Weight (lb): 4 Infant Weight (oz): 8 Infant Length (in): 17.75 Length (cm): 45.09 CORD INFORMATION BABY A No. Cord Vessels: 3 Nuchal Cord : N/A Cord Blood Taken: Yes-For Storage (Mom's Blood type +) ASSESSMENT BABY A Infant Complications: None Infant Respirations: Appears Normal Skin to Skin: No Knocker Out/ALS Called : No Care By: Ehsna Ceballos RN Transferred To: Nursery
[2016-09-30] MEDS: IBUPROFEN 800 MG TABLET PO SCH ×4 (06:36→23:35)
[2016-09-30] MEDS: OXYCODONE-ACETAMINOPHEN 5-325 MG TABLET PO PRN ×2 (06:36→22:44)
[2016-09-30] MEDS ORDERED: DEXAMETHASONE SOD PHOSPHATE INJ 4 MG/1 ML VIAL ONE (09:10)
[2016-09-30] MEDS ORDERED: KETOROLAC TROMETHAMINE 60 MG/2 ML SDV ONE (09:10)
[2016-09-30] MEDS ORDERED: SUCCINYLCHOLINE CHLORIDE INJ 200 MG/10 ML VIAL ONE (09:10)
[2016-09-30] MEDS ORDERED: ONDANSETRON HCL INJ/PF 4 MG/2 ML SDV ONE (09:10)
[2016-09-30] MEDS ORDERED: METOCLOPRAMIDE HCL INJ/PF 10 MG/2 ML SDV ONE (09:10)
--- NOTE | 2016-09-30 09:11 | PDOC PROGRESS REPORT ---
Subjective Progress Note for:: 09/30/16 Subjective:: She is doing well this morning. Physical Exam - Physical Exam Vital Signs: Temp Pulse Resp BP Pulse Ox 98.4 F 73 17 141/80 H 96 09/30/16 07:33 09/30/16 07:33 09/30/16 07:33 09/30/16 07:33 09/30/16 07:33 Intake & Output 09/29/16 09/30/16 10/01/16 06:59 06:59 06:59 Intake Total 600 Output Total 1350 Balance -750 General appearance: PRESENT: no acute distress Head exam: PRESENT: atraumatic - Dressing is dry. Result Laboratory Results: 09/30/16 01:32 09/27/16 09/27/16 09/29/16 01:39 01:39 05:15 WBC 11.5 H RBC 4.25 Hgb 9.9 L Hct 31.5 L MCV 74 L MCH 23.2 L MCHC 31.4 L RDW 15.6 H Plt Count 269 Seg Neutrophils % 67.5 Lymphocytes % 19.3 Monocytes % 8.3 Eosinophils % 4.4 Basophils % 0.5 Absolute Neutrophils 7.7 Absolute Lymphocytes 2.2 Absolute Monocytes 1.0 Absolute Eosinophils 0.5 Absolute Basophils 0.1 Iron < 10.1 L TIBC 495 H % Saturation UNABLE TO CALCULATE Ferritin 4.10 L Vitamin B12 227.0 L Folate 6.77 Blood Type B POSITIVE Antibody Screen NEGATIVE 09/30/16 01:32 WBC 13.1 H RBC 4.29 Hgb 10.2 L D Hct 32.5 L MCV 76 L MCH 23.7 L MCHC 31.2 L RDW 15.4 H Plt Count 271 Seg Neutrophils % 73.2 Lymphocytes % 17.0 Monocytes % 9.4 Eosinophils % 0.1 Basophils % 0.3 Absolute Neutrophils 9.6 H Absolute Lymphocytes 2.2 Absolute Monocytes 1.2 Absolute Eosinophils 0.0 Absolute Basophils 0.0 Iron TIBC % Saturation Ferritin Vitamin B12 Folate Blood Type Antibody Screen 09/27/16 03:30 Vaginal/Anorectal Group B Streptococcus Culture - Final NO GROUP B STREPTOCOCCUS RECOVERED Impressions: Obstetrics Ultrasound 09/28/16 00:00 IMPRESSION: Amniotic fluid index 15.1 cm Trimester of : Third trimester - 28 weeks to delivery. Assessment & Plan - Diagnosis (1) S/P Is this a current diagnosis for this admission?: YesPlan: Continue post op care.
[2016-09-30] MEDS: DOCUSATE SODIUM 100 MG CAPSULE PO SCH ×2 (09:36→17:27)
[2016-09-30] MEDS: PRENATAL VITAMIN W-O CA NO5/FE FUMARATE/FA CAPSULE PO SCH (09:36)
[2016-09-30] MEDS ORDERED: DIPHENHYDRAMINE HCL 25 MG CAPSULE ONE (09:37)
[2016-09-30] MEDS ORDERED: DIPHENHYDRAMINE HCL 50 MG CAPSULE PO ONE (10:00)
[2016-09-30] MEDS ORDERED: FERUMOXYTOL (ESRD) 510 MG/NS 100 ML IV SCH ×2 (10:00)
[2016-09-30] MEDS: DIPHENHYDRAMINE HCL 25 MG CAPSULE PO PRN (23:46)
[2016-10-01 06:01] LABS: HEMATOCRIT 28.1 % (36.0-47.0); HEMOGLOBIN 8.9 g/dL (12.0-15.5); HGB HCT DIFFERENCE -1.4; MEAN CORPUSCULAR HGB CONC 31.8 g/dL (32.0-36.0); MEAN CORPUSCULAR VOLUME 75 fl (80-97); RED BLOOD COUNT 3.73 10^6/uL (3.72-5.28); RED CELL DISTRIBUTION WIDTH 15.7 % (11.5-14.0); WHITE BLOOD COUNT 17.3 10^3/uL (4.0-10.5)
[2016-10-01] MEDS: IBUPROFEN 800 MG TABLET PO SCH ×3 (06:13→18:28)
--- NOTE | 2016-10-01 08:32 | PDOC PROGRESS REPORT ---
Subjective Progress Note for:: 10/01/16 Subjective:: No acute events, given tranfusion, is now post . Physical Exam Vital Signs: Temp Pulse Resp BP Pulse Ox 98.3 F 62 16 102/63 100 10/01/16 07:42 10/01/16 07:42 10/01/16 07:42 10/01/16 07:42 10/01/16 07:42 Intake & Output 09/30/16 10/01/16 10/02/16 06:59 06:59 06:59 Intake Total 600 725 Output Total 1350 2175 Balance -750 -1450 General appearance: PRESENT: no acute distress, well-developed, well-nourished Head exam: PRESENT: atraumatic, normocephalic Eye exam: PRESENT: conjunctiva pink, EOMI, PERRLA. ABSENT: scleral icterus Ear exam: PRESENT: normal external ear exam Mouth exam: PRESENT: moist, tongue midline Neck exam: ABSENT: carotid bruit, JVD, lymphadenopathy, thyromegaly Respiratory exam: PRESENT: clear to auscultation haim. ABSENT: rales, rhonchi, wheezes Cardiovascular exam: PRESENT: RRR. ABSENT: diastolic murmur, rubs, systolic murmur Pulses: PRESENT: normal dorsalis pedis pul Vascular exam: PRESENT: normal capillary refill GI/Abdominal exam: PRESENT: normal bowel sounds, soft. ABSENT: distended, guarding, mass, organolmegaly, rebound, tenderness Rectal exam: PRESENT: deferred Extremities exam: PRESENT: full ROM. ABSENT: calf tenderness, clubbing, pedal edema Neurological exam: PRESENT: alert, awake, oriented to person, oriented to place , oriented to time, oriented to situation, CN II-XII grossly intact. ABSENT: motor sensory deficit Psychiatric exam: PRESENT: appropriate affect, normal mood. ABSENT: homicidal ideation, suicidal ideation Skin exam: PRESENT: dry, intact, warm. ABSENT: cyanosis, rash Results Laboratory Results: 10/01/16 05:44 10/01/16 05:44 WBC 17.3 H RBC 3.73 Hgb 8.9 L Hct 28.1 L MCV 75 L MCH 24.0 L MCHC 31.8 L RDW 15.7 H Plt Count 273 Impressions: Obstetrics Ultrasound 09/28/16 00:00 IMPRESSION: Amniotic fluid index 15.1 cm Trimester of : Third trimester - 28 weeks to delivery. Assessment & Plan - Diagnosis (1) Maternal iron deficiency anemia affecting in third trimester, antepartum Is this a current diagnosis for this admission?: YesPlan: Got transfusion and faraheme. If pt stays for 2-3 more days will get another faraheme but if not can f/u as outpt. Will sign off, thanks for opportunity to assist in this pts care - Time Time Spent with patient: 15-24 minutes Critical Time spent with patient: 15-24 minutes
[2016-10-01] MEDS: DOCUSATE SODIUM 100 MG CAPSULE PO SCH ×2 (09:40→17:12)
[2016-10-01] MEDS: PRENATAL VITAMIN W-O CA NO5/FE FUMARATE/FA CAPSULE PO SCH (09:41)
[2016-10-01] MEDS: OXYCODONE-ACETAMINOPHEN 5-325 MG TABLET PO PRN (09:43)
--- NOTE | 2016-10-01 09:44 | PDOC PROGRESS REPORT ---
Subjective-OB Subjective: Post Delivery Day: 1 31 year old. Denies any needs at this time, states lochia is stable, pain is well controlled, voiding without difficulty. Physical Exam (OB) Vital Signs: Temp Pulse Resp BP Pulse Ox 98.3 F 62 16 102/63 100 10/01/16 07:42 10/01/16 07:42 10/01/16 07:42 10/01/16 07:42 10/01/16 07:42 Intake & Output 09/30/16 10/01/16 10/02/16 06:59 06:59 06:59 Intake Total 600 725 Output Total 1350 2175 Balance -750 1450 - PIH/Pre-Eclampsia DTR's: 1 + Clonus: Negative Headache: Absent Epigastric Pain: No Visual Changes: No - Dressing Removed: Yes - pressure dsg removed, new opsite applied Incision: Dressing Closure Type: opsite - Lochia Lochia Amount: Scant < 10 ml Lochia Color: Rubra/Red - Abdomen Description: Tender, Soft Hernia Present: No Fundal Description: Firm, Midline Fundal Height: u/u - u/2 Objective-Diagnostic Laboratory: 10/01/16 05:44 10/01/16 05:44 WBC 17.3 H RBC 3.73 Hgb 8.9 L Hct 28.1 L MCV 75 L MCH 24.0 L MCHC 31.8 L RDW 15.7 H Plt Count 273 Assessment and Plan(PN) - Assessment and Plan (1) Maternal iron deficiency anemia affecting in third trimester, antepartum Is this a current diagnosis for this admission?: YesPlan: ferrous sulfate increase dietary iron (2) S/P Is this a current diagnosis for this admission?: YesPlan: routine post op care - Time Spent with Patient Time with patient: Less than 15 minutes Critical Time spent with patient: Less than 15 minutes Medications reviewed and adjusted accordingly: Yes - Disposition Anticipated Discharge: Home Within: within 24 hours
[2016-10-01] MEDS: DIPHENHYDRAMINE HCL 25 MG CAPSULE PO PRN (09:48)
[2016-10-02] MEDS: IBUPROFEN 800 MG TABLET PO SCH ×5 (00:35→23:10)
[2016-10-02] MEDS: OXYCODONE-ACETAMINOPHEN 5-325 MG TABLET PO PRN (00:36)
[2016-10-02] MEDS: DIPHENHYDRAMINE HCL 25 MG CAPSULE PO PRN (00:40)
[2016-10-02] MEDS ORDERED: IBUPROFEN 800 MG TABLET ONE (08:46)
[2016-10-02] MEDS: PRENATAL VITAMIN W-O CA NO5/FE FUMARATE/FA CAPSULE PO SCH (08:52)
[2016-10-02] MEDS: DOCUSATE SODIUM 100 MG CAPSULE PO SCH ×2 (08:52→18:15)
--- NOTE | 2016-10-02 10:07 | PDOC PROGRESS REPORT ---
Subjective-OB Subjective: Post Delivery Day: 31 year old. Denies any needs at this time Doing well, OOB in room and halls, + flatus, no BM, pain under control, concerned about baby in NICU, breast feeding, scant lochia, Physical Exam (OB) Vital Signs: Temp Pulse Resp BP Pulse Ox 98.1 F 65 15 106/74 98 10/02/16 07:46 10/02/16 07:46 10/02/16 07:46 10/02/16 07:46 10/02/16 07:46 Intake & Output 10/01/16 10/02/16 10/03/16 06:59 06:59 06:59 Intake Total 725 Output Total 2175 Balance -1450 - PIH/Pre-Eclampsia DTR's: 1 + Clonus: Negative Headache: Absent Epigastric Pain: No Visual Changes: No - Dressing Removed: No - opsite Incision: Dressing Closure Type: opsite - Lochia Lochia Amount: Small 10-25 ml Lochia Color: Rubra/Red - Abdomen Description: Soft, Round Hernia Present: No Fundal Description: Firm, Midline Fundal Height: u/u - u/2 Objective-Diagnostic Laboratory: 10/01/16 05:44 Assessment and Plan(PN) - Assessment and Plan (1) delivery, delivered Is this a current diagnosis for this admission?: Yes (2) Blood transfusion affecting Is this a current diagnosis for this admission?: Yes (3) Maternal iron deficiency anemia affecting in third trimester, antepartum Is this a current diagnosis for this admission?: Yes (4) S/P Is this a current diagnosis for this admission?: Yes - Time Spent with Patient Time with patient: Less than 15 minutes Medications reviewed and adjusted accordingly: Yes - Disposition Anticipated Discharge: Home Within: within 24 hours
[2016-10-03] MEDS: IBUPROFEN 800 MG TABLET PO SCH (06:10)
--- NOTE | 2016-10-03 09:56 | PDOC PROGRESS REPORT ---
Subjective-OB Subjective: Post Delivery Day: 31 year old. Denies any needs at this time. Ready for discharge. Physical Exam (OB) Vital Signs: Temp Pulse Resp BP Pulse Ox 98.7 F 57 L 14 123/73 100 10/03/16 08:46 10/03/16 08:46 10/03/16 08:46 10/03/16 08:46 10/03/16 08:46 - PIH/Pre-Eclampsia DTR's: 1 + Clonus: Negative Headache: Absent Epigastric Pain: No Visual Changes: No - Dressing Removed: No - opsite dressing in place Incision: Dressing Closure Type: opsite - Lochia Lochia Amount: Scant < 10 ml Lochia Color: Rubra/Red - Abdomen Description: Soft, Round Hernia Present: No Bowel Sounds: Normoactive Flatus Presence: Present Stool: No Fundal Description: Firm, Midline Fundal Height: u/u - u/2 Objective-Diagnostic Laboratory: 10/01/16 05:44 Assessment and Plan(PN) - Time Spent with Patient Medications reviewed and adjusted accordingly: Yes - Disposition Anticipated Discharge: Home
--- NOTE | 2016-10-03 10:14 | PDOC DISCHARGE SUMMARY ---
Final Diagnosis Discharge Date: 10/03/16 Discharge Data - Discharge Medication Home Medications: Albuterol Sulfate [Ventolin Hfa 8 gm Mdi (1 Mdi/ER Disp)] 2 puff IH ASDIR PRN Docusate Sodium [Colace 100 mg Capsule] 100 mg PO BID #60 capsule 10/03/16 Ferrous Sulfate 325 mg PO BID #60 tablet. 10/03/16 Ibuprofen [Motrin 800 mg Tablet] 800 mg PO Q6 #30 tablet 10/03/16 Oxycodone HCl/Acetaminophen [Percocet 5-325 mg Tablet] 1 tab PO Q4HP PRN #20 tablet 10/03/16 Gestational Age: 33.2 wks Reason(s) for Admission: Onset of Labor Intrapartum Procedure(s): : Low Cervical, Transverse - Data Baby 1 Male at 1 minute: 8 at 5 minutes: 9 Weight: 2.041 kg Home with Mother: No Complications: Yes - Prematurity - Diagnosis Test Laboratory: Temp Pulse Resp BP Pulse Ox 98.7 F 57 L 14 123/73 100 10/03/16 08:46 10/03/16 08:46 10/03/16 08:46 10/03/16 08:46 10/03/16 08:46 09/26/16 09/27/16 09/29/16 23:35 01:39 05:15 RBC 4.25 2.98 L Hgb 9.9 L 7.1 L D Hct 31.5 L 22.4 L Urine Opiates Screen NEGATIVE 09/30/16 10/01/16 01:32 05:44 RBC 4.29 3.73 Hgb 10.2 L D 8.9 L Hct 32.5 L 28.1 L Urine Opiates Screen - Discharge information/Instructions Discharge Activity: Activity As Tolerated, Balance Activity w/Rest, Pelvic Rest , Slowly Increase Activity, No tub bath Discharge Diet: Regular Disposition: HOME, SELF-CARE Follow up with: [facility] in: 1, Weeks
[2016-10-03] MEDS: DOCUSATE SODIUM 100 MG CAPSULE PO SCH (10:50)
[2016-10-03] MEDS: PRENATAL VITAMIN W-O CA NO5/FE FUMARATE/FA CAPSULE PO SCH (10:50)
[2016-10-03 12:02] LABS: HEMATOCRIT 32.3 % (36.0-47.0); HEMOGLOBIN 10.2 g/dL (12.0-15.5); HGB HCT DIFFERENCE -1.7; MEAN CORPUSCULAR HEMOGLOBIN 24.3 pg (27.0-33.4); MEAN CORPUSCULAR HGB CONC 31.5 g/dL (32.0-36.0); MEAN CORPUSCULAR VOLUME 77 fl (80-97); RED CELL DISTRIBUTION WIDTH 16.3 % (11.5-14.0); WHITE BLOOD COUNT 16.6 10^3/uL (4.0-10.5)
[2016-10-03 12:27] VITALS: BP 117/52
[2016-10-03] MEDS ORDERED: FERROUS SULFATE 325 MG TABLET PO SCH (14:00)
--- NOTE | 2016-11-11 10:15 | OPERATIVE REPORT E ---
Operative Report NAME: DENY GARCIA : 1985 AGE: 31Y DATE OF SURGERY: 09/30/2016 ROOM: 222 PREOPERATIVE DIAGNOSES: 1. A 33-week intrauterine . 2. Premature rupture of membranes. 3. History of section x2. 4. Active labor. POSTOPERATIVE DIAGNOSES: 1. A 33-week intrauterine . 2. Premature rupture of membranes. 3. History of section x2. 4. Active labor. SURGEON: Jose J Fontenot D.O. SUPERVISOR [employer] TEXTILE: None. PROCEDURE: Repeat low transverse section. ANESTHESIA: Spinal. COMPLICATIONS: None. PATHOLOGY: Placenta. ESTIMATED BLOOD LOSS: 600 mL. FINDINGS: 1. Viable male at 2:26 a.m. on 09/30/2016, Apgars 8 at one, 9 at five. 2. Normal-appearing bilateral fallopian tubes and ovaries. DESCRIPTION OF PROCEDURE: The patient was taken to the operating room where spinal anesthesia was administered. Once this was done, she was placed in the dorsal supine position with a leftward tilt upon the operating room table. She was then prepped and draped in the normal sterile fashion. A scalpel was then used to make a Pfannenstiel skin incision. The skin incision was carried down through the subcutaneous tissue to the layer of the fascia. Fascia was then incised in the midline. Fascial incision was then extended bilaterally using the Bovie cautery. The superior fascial edge was grasped with Jose clamps, elevated, and the rectus muscles dissected off sharply and bluntly. Attention was then turned to the inferior fascial edge, which was grasped with Jose clamps, elevated, and the rectus muscles dissected off sharply and bluntly. Rectus muscles were then in the midline, perineum identified and entered bluntly with the surgeon's hands. Bladder blade was inserted. A scalpel was then used to make a low transverse hysterotomy incision. The was found to be in cephalic position and delivered through the incision without difficulty and atraumatically. The nose and mouth were suctioned. The cord was clamped and cut. The infant was handed off to the awaiting nurses. Cord blood was obtained. The placenta was then manually removed from the uterus. The uterus was then exteriorized and cleared of all clots and debris. The hysterotomy incision was then reapproximated using 2 layers of 1-0 Vicryl in a running, locking fashion. Following closure of the second layer, excellent hemostasis was noted. The uterus was then returned to the abdomen. Again, the hysterotomy incision was reinspected and found to have excellent hemostasis. The rectus muscles were then reapproximated using 1-0 Vicryl interrupted sutures. The fascia was then closed using 1-0 Vicryl in a running, non-locking fashion. The subcutaneous space was then made hemostatic using Bovie cautery. The skin was then closed with absorbable josette, covered with an OpSite and then with a pressure dressing. At this point in time, the procedure was terminated. All sponge, lap, and needle counts were correct x2. The patient tolerated the procedure well. The patient was taken to the recovery room in stable condition. DICTATING PHYSICIAN: Jose J Fontenot DO [id number] PHY#: [id number] ID: [id number] JOB#: [id number] ACCT: [id number] cc:Jose J Fontenot D.O. >
== END 2016-10-03 13:30 | disposition home or self-care (01) | DRG 765 ==
LOC: LC 23:22 → LR 09-27 01:16 → 2S 09-28 10:34 → LR 09-29 06:40 → 2S 09-29 11:34 → LR 09-30 00:31 → 2S 09-30 05:00
PROVIDERS: ADMIT Obstetrics & Gynecology; ATTEND Obstetrics & Gynecology
PROC: 30233N1 Transfusion of Nonautologous Red Blood Cells into Peripheral Vein, Percutaneous Approach (ICD-10-PCS; principal; 2016-09-29)
PROC: 10D00Z1 Extraction of Products of Conception, Low, Open Approach (ICD-10-PCS; 2016-09-30)
DX: O42.113 Preterm premature rupture of membranes, onset of labor more than 24 hours following rupture, third trimester (principal); O41.03X0 Oligohydramnios, third trimester, not applicable or unspecified; O34.211 Maternal care for low transverse scar from previous cesarean delivery; N85.8 Other specified noninflammatory disorders of uterus; O99.02 Anemia complicating childbirth; D50.9 Iron deficiency anemia, unspecified; Z37.0 Single live birth; Z3A.32 32 weeks gestation of pregnancy
CPT/HCPCS: 1961; 36415; 36430; 59025; 76815; 80307; 81001; 82607; 82728; 82746; 83540; 83550; 84112; 85025; 85027; 85045; 86592; 86850; 86900; 86901; 86920; 87081; 87491; 87591; 88307; 90715; 94640; 94760; 94799; 96372; J0131; J0290; J0330; J0690; J0702; J1100; J1170; J1200; J1885; J2210; J2250; J2405; J2590; J2704; J2765; J3010; J3490; J7120; P9016; Q0114; Q0139; Q0144; S0119

== ENCOUNTER 2017-05-25 23:50 | Emergency (ER) | payer MEDICAID ==
[2017-05-26] MEDS ORDERED: METHYLPREDNISOLONE INJ 125 MG/2 ML SDV IV ONE (00:02)
--- NOTE | 2017-05-26 00:10 | ER Document Report ---
ED General - General Stated Complaint: DIFFICULTY BREATHING Time Seen by Provider: 05/25/17 23:58 Mode of Arrival: Medic Information source: Patient TRAVEL OUTSIDE OF THE [place] IN LAST 30 DAYS: No - HPI Notes: Patient is a pleasant 32-year-old female history of asthma and sarcoid presents the emergency department with report of difficulty breathing and nonproductive cough and chest pain came on 3 days ago. The patient has been using her inhaler and nebulizer treatment at home without significant relief. She called for EMS to pick her up who found her to have an O2 sat of 100% with respiratory rate of 16 but she did have significant wheezing. Blood sugar was 81. The patient was given albuterol nebulizer treatment and DuoNeb nebulizer treatments while in route. The patient reports pain through the chest into the back similar to previous asthma episodes. The patient denies any fever chills or abdominal pain or nausea or vomiting. She reports no constipation or diarrhea. The patient reports previous hospitalizations related to asthma in the past. The patient was told that she had sarcoid by a CT scan several years ago. The patient never had a biopsy performed or other evaluation to confirm sarcoid. She reports her last steroid taper was 8 months ago when she was . Medications Flovent 220, albuterol Atrovent nebulizers, albuterol inhaler. - Related Data Allergies/Adverse Reactions: No Known Drug Allergies Allergy (Verified 09/27/16 02:35) Past Medical History - General Information source: Patient - Social History Smoking Status: Never Smoker Frequency of alcohol use: None Drug Abuse: None Lives with: Spouse/Significant other Family History: Reviewed & Not Pertinent Renal/ Medical History: Denies: Hx Peritoneal Dialysis Review of Systems - Review of Systems Notes: REVIEW OF SYSTEMS: CONSTITUTIONAL : Denies fever, chills, or sweats. EENT: Denies eye, ear, throat, or mouth pain or symptoms. Denies throat, tongue, or mouth swelling or difficulty swallowing. CARDIOVASCULAR: Denies palpitations or racing or irregular heart beat. Denies ankle edema. RESPIRATORY: Reports dyspnea and wheezing. GASTROINTESTINAL: Denies abdominal pain or distention. Denies nausea, vomiting , or diarrhea. Denies blood in vomitus, stools, or per rectum. Denies black, tarry stools. Denies constipation. GENITOURINARY: Denies difficulty urinating, painful urination, burning, frequency, blood in urine, or discharge. FEMALE GENITOURINARY: Denies vaginal bleeding, heavy or abnormal periods, irregular periods. Denies vaginal discharge or odor. MUSCULOSKELETAL: Denies back or neck pain or stiffness. Denies joint pain or swelling. SKIN: Denies rash, lesions or sores. HEMATOLOGIC : Denies easy bruising or bleeding. LYMPHATIC: Denies swollen, enlarged glands. NEUROLOGICAL: Denies confusion or altered mental status. Denies passing out or loss of consciousness. Denies dizziness or lightheadedness. Denies headache. Denies weakness or paralysis or loss of use of either side. Denies problems with gait or speech. Denies sensory loss, numbness, or tingling. Denies seizures. PSYCHIATRIC: Denies anxiety or stress. Denies depression, suicidal ideation, or homicidal ideation. ALL OTHER SYSTEMS REVIEWED AND NEGATIVE. Dictation was performed using fruux voice recognition software Physical Exam - Vital signs Vitals: Pulse Ox 94 05/25/17 23:50 - Notes Notes: PHYSICAL EXAMINATION: GENERAL: Well-appearing, well-nourished. HEAD: Atraumatic, normocephalic. EYES: Pupils equal round and reactive to light, extraocular movements intact, conjunctiva are normal. ENT: Nares show coryza, oropharynx clear without exudates. Moist mucous membranes. NECK: Normal range of motion, supple without lymphadenopathy LUNGS: Coarse breath sounds with wheezes and rhonchi. No significant accessory muscle use. HEART: Regular rate and rhythm without murmurs ABDOMEN: Soft, nontender, nondistended abdomen. No guarding, no rebound. No masses appreciated. Female : deferred Musculoskeletal: Normal range of motion, no pitting or edema. No cyanosis. NEUROLOGICAL: Cranial nerves grossly intact. Normal speech, normal gait. Normal sensory, motor exams PSYCH: Normal mood, normal affect. SKIN: Warm, Dry, normal turgor, no rashes or lesions noted. Course - Re-evaluation Re-evalutation: 05/26/17 00:17 Patient was given DuoNeb treatment and IV Solu-Medrol. Repeat exam showed improvement in the patient's wheezing. Patient was given IV Toradol and morphine and Zofran for pain. Patient's bicarb was low at 18 and her potassium low at 3.2, she was given replacement fluids. Magnesium 1.9. Patient given p.o. magnesium. No evidence for hypoxia or pneumonia or congestive heart failure Or cardiac ischemia. No evidence for pulmonary embolus with a normal d-dimer. 05/26/17 02:10 Patient was ambulatory without complaint and had oxygen saturation 100% on room air following ambulation. Repeat exam showed no significant wheezing. Patient given Cipro by mouth to cover urinary tract infection as well as possible bronchitis. No obvious evidence for sarcoid in visualization of the chest x-ray. 05/26/17 05:25 - Vital Signs Vital signs: Temp Pulse Resp BP Pulse Ox 97.7 F 92 18 104/51 L 97 05/26/17 00:19 05/26/17 00:19 05/26/17 04:39 05/26/17 04:39 05/26/17 04:39 - Laboratory Result Diagrams: 05/26/17 00:12 05/26/17 00:12 Laboratory results interpreted by me: 05/26/17 05/26/17 05/26/17 00:12 00:12 03:15 WBC 12.6 H Eosinophils % 7.6 H Absolute Eosinophils 1.0 H Potassium 3.2 L Carbon Dioxide 18 L Total Bilirubin 0.1 L Urine Blood LARGE H - EKG Interpretation by Fl EKG shows normal: Sinus rhythm Additional EKG results interpreted by sd: 05/26/17 00:18 EKG as interpreted by sd showed normal sinus rhythm heart rate of [address] segment abnormalities appreciated. No gross evidence for acute IL or ischemia. No old EKG available for comparison. Discharge - Discharge Clinical Impression: Upper respiratory infection Qualifiers: URI type: unspecified viral URI Qualified Code(s): J06.9 - Acute upper respiratory infection, unspecified Urinary tract infection Qualifiers: Urinary tract infection type: site unspecified Hematuria presence: without hematuria Qualified Code(s): N39.0 - Urinary tract infection, site not specified Asthma Qualifiers: Asthma severity: moderate Asthma persistence: persistent Asthma complication type: with acute exacerbation Qualified Code(s): J45.41 - Moderate persistent asthma with (acute) exacerbation Condition: Stable Disposition: HOME, SELF-CARE Instructions: Upper Respiratory Illness ([facility]), Urinary Tract Infection ([facility]), Asthma ([facility]) Prescriptions: Hydrocodone/Acetaminophen [[place] 5-325 mg Tablet] 1 tab PO Q4HP PRN #20 tablet PRN Reason: Ciprofloxacin HCl [Cipro 500 mg Tablet] 500 mg PO BID #16 tablet Ipratropium/Albuterol Sulfate [Duoneb 3 ml Ampul] 3 ml NEB RTQ6HP PRN #30 vial.neb PRN Reason: Prednisone [Deltasone 10 mg Tablet] 10 mg PO ASDIR PRN #21 tablet PRN Reason: Referrals: MARIAELENA CROWELL MD [Primary Care Provider] - Follow up as needed
[2017-05-26] MEDS ORDERED: IPRATROPIUM/ALBUTEROL 0.5-2.5 MG/3 ML AMPUL NEB ONE ×2 (00:17→03:03)
[2017-05-26 00:39] LABS: ABSOLUTE LYMPHOCYTES (AUTO) 3.4 10^3/uL (0.5-4.7); ABSOLUTE MONOCYTES (AUTO) 0.6 10^3/uL (0.1-1.4); ABSOLUTE NEUT (AUTO) 7.6 10^3/uL (1.7-8.2); BASOPHILS % (AUTO) 0.3 % (0-2); EOSINOPHILS % (AUTO) 7.6 % (0-6); HEMATOCRIT 40.1 % (36.0-47.0); HEMOGLOBIN 13.4 g/dL (12.0-15.5); LYMPHOCYTES % (AUTO) 26.8 % (13-45); MEAN CORPUSCULAR HEMOGLOBIN 28.7 pg (27.0-33.4); MEAN CORPUSCULAR HGB CONC 33.4 g/dL (32.0-36.0); MEAN CORPUSCULAR VOLUME 86 fl (80-97); MONOCYTES % (AUTO) 4.9 % (3-13); PLATELET COUNT 365 10^3/uL (150-450); RED BLOOD COUNT 4.67 10^6/uL (3.72-5.28); RED CELL DISTRIBUTION WIDTH 12.7 % (11.5-14.0); SEGMENTED NEUTROPHILS % (AUTO) 60.4 % (42-78); TOTAL CELLS COUNTED % (AUTO) 100 %; WHITE BLOOD COUNT 12.6 10^3/uL (4.0-10.5)
[2017-05-26 00:48] LABS: ALANINE AMINOTRANSFERASE 25 U/L (9-52); ALBUMIN 4.7 g/dL (3.5-5.0); ALKALINE PHOSPHATASE 60 U/L (38-126); ANION GAP 19 (5-19); ASPARTATE AMINO TRANSFERASE 17 U/L (14-36); BILIRUBIN,DIRECT 0.1 mg/dL (0.0-0.4); BILIRUBIN,TOTAL 0.1 mg/dL (0.2-1.3); BLOOD UREA NITROGEN 10 mg/dL (7-20); CALCIUM 9.9 mg/dL (8.4-10.2); CARBON DIOXIDE 18 mmol/L (22-30); CHLORIDE 106 mmol/L (98-107); GLUCOSE 104 mg/dL (75-110); MAGNESIUM 1.9 mg/dL (1.6-2.3); POTASSIUM 3.2 mmol/L (3.6-5.0); SODIUM 142.7 mmol/L (137-145); TOTAL PROTEIN 7.9 g/dL (6.3-8.2)
[2017-05-26] MEDS ORDERED: ONDANSETRON HCL INJ/PF 4 MG/2 ML SDV IV ONE (01:50)
[2017-05-26] MEDS ORDERED: MORPHINE SULFATE 10 MG/ML INJ IV ONE (01:50)
--- NOTE | 2017-05-26 01:50 | RADIOLOGY REPORT (SQ) ---
EXAM DESCRIPTION: CHEST PA/LAT CLINICAL HISTORY: 32 years, Female, cough, wheezing COMPARISON: None. NUMBER OF VIEWS: 2 FINDINGS: Normal lung volume, clear parenchyma, normal cardiac silhouette, and intact bony thorax. IMPRESSION: No acute cardiopulmonary findings.
[2017-05-26] MEDS ORDERED: KETOROLAC TROMETHAMINE INJ/PF 30 MG/1 ML SDV IV ONE (01:51)
[2017-05-26] MEDS ORDERED: POTASSI CL 20 MEQ/1/2NS 1L 20 MEQ/1,000 ML RTUINJ IV ONE (01:51)
[2017-05-26] MEDS ORDERED: MAGNESIUM OXIDE 400 MG TABLET PO ONE (01:52)
[2017-05-26 03:34] LABS: APPEARANCE,URINE SLIGHTLY-CLOUDY; BILIRUBIN,URINE NEGATIVE (NEGATIVE); COLOR,URINE YELLOW; GLUCOSE, URINE NEGATIVE (NEGATIVE); KETONES,URINE NEGATIVE (NEGATIVE); LEUKOCYTE ESTERASE,URINE NEGATIVE (NEGATIVE); NITRITE,URINE NEGATIVE (NEGATIVE); PROTEIN,URINE NEGATIVE (NEGATIVE); URINE SPECIFIC GRAVITY 1.023; UROBILINOGEN,URINE NEGATIVE mg/dL (<2.0)
[2017-05-26] MEDS ORDERED: HYDROCODONE/ACETAMINOPHEN 5-325 MG (6 TAB/ER DISP) PO PRN (04:31)
[2017-05-26] MEDS ORDERED: CIPROFLOXACIN HCL 500 MG TABLET PO ONE (04:31)
[2017-05-26 05:19] VITALS: BP 113/61
--- NOTE | 2017-05-26 07:49 | EKG REPORT ---
SEVERITY:- ABNORMAL ECG - SINUS RHYTHM NONSPECIFIC T ABNORMALITIES, ANTERIOR LEADS : Confirmed by: Ryely Yancey MD 26-May-2017 07:48:41
== END 2017-05-26 05:55 | disposition home or self-care (01) ==
LOC: ER 23:50
DX: J06.9 Acute upper respiratory infection, unspecified (principal); N39.0 Urinary tract infection, site not specified; R05 Cough; R06.02 Shortness of breath; J45.41 Moderate persistent asthma with (acute) exacerbation; R07.9 Chest pain, unspecified
CPT/HCPCS: 93005; 94640 ×2; 99285; 96374; 96375; 36415; 87086; 83735; 85025; 81025; 87088; 80053; 81001; 84484; 87186; 85379; 83880; 71046; 93010; J3490 ×2; J3480; J2930; J1885; J2270; J2405; J7620

== ENCOUNTER 2017-06-21 01:44 | Inpatient (IN) | payer MEDICAID ==
--- NOTE | 2017-06-21 01:54 | ER Document Report ---
ED General - General Stated Complaint: DIFFICULTY BREATHING Time Seen by Provider: 06/21/17 01:53 Notes: Patient is a 32 year old female with a past medical history of asthma who presents with shortness of breath that has been progressively worsening over the last 24 hours. The patient reports she has been using her home albuterol inhaler without any significant improvement in her symptoms. She notes any form of exertion worsens her symptoms. She notes this feels very similar to prior asthma exacerbations that she has had in the past. She has not seen her primary doctor regarding today's concerns. She denies any associated fever, vomiting, or syncope although she notes she has had persistent cough and sputum production. She has required hospitalization in the past for her asthma but has never required intubation for her asthma. TRAVEL OUTSIDE OF THE [place] IN LAST 30 DAYS: No - Related Data Allergies/Adverse Reactions: No Known Drug Allergies Allergy (Verified 09/27/16 02:35) Past Medical History - General Information source: Patient - Social History Smoking Status: Never Smoker Frequency of alcohol use: None Drug Abuse: None Lives with: Family Family History: Reviewed & Not Pertinent Renal/ Medical History: Denies: Hx Peritoneal Dialysis Review of Systems - Review of Systems Notes: Constitutional: Negative for fever. HENT: Negative for sore throat. Eyes: Negative for visual changes. Cardiovascular: Negative for chest pain. Respiratory: Positive for shortness of breath. Gastrointestinal: Negative for abdominal pain, vomiting or diarrhea. Genitourinary: Negative for dysuria. Musculoskeletal: Negative for back pain. Skin: Negative for rash. Neurological: Negative for headaches, weakness or numbness. 10 point ROS negative except as marked above and in HPI. Physical Exam - Vital signs Vitals: Temp Pulse Resp BP Pulse Ox 98.5 F 122 H 22 H 127/74 H 100 06/21/17 02:04 06/21/17 02:04 06/21/17 02:04 06/21/17 02:04 06/21/17 02:04 Interpretation: Tachycardic Notes: PHYSICAL EXAMINATION: GENERAL: Well-appearing, well-nourished and in no acute distress. HEAD: Atraumatic, normocephalic. EYES: Pupils equal round and reactive to light, extraocular movements intact, sclera anicteric, conjunctiva are normal. ENT: nares patent, oropharynx clear without exudates. Moderately dry mucous membranes. NECK: Normal range of motion, supple without lymphadenopathy LUNGS: Breath sounds clear to auscultation bilaterally and equal. Faint end expiratory wheezing in all lung [place] HEART: Regular tachycardia without murmurs ABDOMEN: Soft, nontender, normoactive bowel sounds. No guarding, no rebound. No masses appreciated. EXTREMITIES: Normal range of motion, no pitting or edema. No cyanosis. NEUROLOGICAL: No focal neurological deficits. Moves all extremities spontaneously and on command. PSYCH: Normal mood, normal affect. SKIN: Warm, Dry, normal turgor, no rashes or lesions noted. Course - Re-evaluation Re-evalutation: 06/21/17 01:53 Patient presents by EMS after receiving multiple rounds of nebulizers, magnesium and Solu-Medrol prior to arrival. At time of initial assessment patient does not have any wheezing, retractions or distress. Patient was placed under observation to monitor for any worsening of her symptoms off of nebulizers. Approximately 20 minutes after arrival, patient did again have recurrence of shortness of breath and wheezing. An additional duo nebulizer was administered with improvement of her recurrence of symptoms but she notes that it did not bring her back to as good as she felt at time of arrival. Patient continued to be observed and after approximately 20-30 additional minutes she again had recurrence of respiratory distress and wheezing. She has been placed back on nebulizer treatments with albuterol. IV fluids are also being initiated. Patient has been given Toradol and Tylenol for chest wall discomfort in the setting of repeated coughing. Chest x-ray is noted to be normal. Given patient's recurrent need for repeat nebulizers and my inability to resolve her tachycardia I do not believe she is safe for discharge home. I have discussed this with the hospitalist who is accepted the patient for admission. - Vital Signs Vital signs: Temp Pulse Resp BP Pulse Ox 98.5 F 122 H 22 H 127/74 H 100 06/21/17 02:04 06/21/17 02:04 06/21/17 02:04 06/21/17 02:04 06/21/17 02:04 - Laboratory Result Diagrams: 06/21/17 01:06 06/21/17 01:06 - Diagnostic Test Radiology reviewed: Image reviewed, Reports reviewed Radiology results interpreted by me: 06/21/17 03:09 Chest x-ray: No acute infiltrate or pneumothorax Discharge - Discharge Clinical Impression: Shortness of breath Asthma exacerbation Qualifiers: Asthma severity: mild Asthma persistence: persistent Qualified Code(s): J45.31 - Mild persistent asthma with (acute) exacerbation Condition: Fair Disposition: ADMITTED INPATIENT Admitting Provider: Gerardoist - [facility] Unit Admitted: Telemetry Prescriptions: Prednisone [Deltasone 20 mg Tablet] 3 tab PO DAILY 5 Days tablet
--- NOTE | 2017-06-21 02:42 | RADIOLOGY REPORT (SQ) ---
EXAM DESCRIPTION: CHEST SINGLE VIEW CLINICAL HISTORY: sob COMPARISON: 05/26/2017 FINDINGS: Single frontal view of the chest. The cardiomediastinal silhouette has normal size and contour. No consolidation, pneumothorax, or pleural effusion. No displaced rib fractures identified. Upper abdominal soft tissues are unremarkable. Leads overlie the chest. IMPRESSION: 1. No acute pulmonary process identified.
[2017-06-21] MEDS ORDERED: IPRATROPIUM/ALBUTEROL 0.5-2.5 MG/3 ML AMPUL NEB ONE ×3 (02:46→03:34)
[2017-06-21] MEDS ORDERED: ACETAMINOPHEN 325 MG TABLET PO ONE (02:57)
[2017-06-21] MEDS ORDERED: KETOROLAC TROMETHAMINE INJ/PF 30 MG/1 ML SDV IV ONE (02:57)
[2017-06-21] MEDS ORDERED: NORMAL SALINE 1000 ML 1,000 ML IV ONE (03:09)
[2017-06-21 03:36] LABS: ABSOLUTE BASOPHILS # (AUTO) 0.1 10^3/uL (0.0-0.2); ABSOLUTE EOSINOPHILS # (AUTO) 0.7 10^3/uL (0.0-0.6); ABSOLUTE LYMPHOCYTES (AUTO) 3.2 10^3/uL (0.5-4.7); ABSOLUTE MONOCYTES (AUTO) 0.8 10^3/uL (0.1-1.4); ABSOLUTE NEUT (AUTO) 7.2 10^3/uL (1.7-8.2); BASOPHILS % (AUTO) 0.5 % (0-2); HEMATOCRIT 39.5 % (36.0-47.0); LYMPHOCYTES % (AUTO) 26.9 % (13-45); MEAN CORPUSCULAR HEMOGLOBIN 28.7 pg (27.0-33.4); MEAN CORPUSCULAR VOLUME 87 fl (80-97); PLATELET COUNT 359 10^3/uL (150-450); RED BLOOD COUNT 4.54 10^6/uL (3.72-5.28); RED CELL DISTRIBUTION WIDTH 12.6 % (11.5-14.0); SEGMENTED NEUTROPHILS % (AUTO) 59.6 % (42-78); TOTAL CELLS COUNTED % (AUTO) 100 %
[2017-06-21] MEDS ORDERED: ACETAMINOPHEN 325 MG TABLET PO PRN ×2 (03:40→15:00)
[2017-06-21] MEDS ORDERED: ALBUTEROL SULFATE 0.083% NEB 2.5 MG/3 ML AMPUL NEB PRN (03:40)
[2017-06-21] MEDS ORDERED: PROMETHAZINE HCL INJ 25 MG/1 ML VIAL IV PRN (03:40)
[2017-06-21 03:42] LABS: ANION GAP 19 (5-19); BLOOD UREA NITROGEN 7 mg/dL (7-20); CALCIUM 8.9 mg/dL (8.4-10.2); CARBON DIOXIDE 23 mmol/L (22-30); CHLORIDE 101 mmol/L (98-107); GLUCOSE 151 mg/dL (75-110); SODIUM 142.8 mmol/L (137-145)
[2017-06-21 03:48] LABS: POTASSIUM 2.9 mmol/L (3.6-5.0)
[2017-06-21] MEDS ORDERED: LORAZEPAM INJ 2 MG/1 ML VIAL IV ONE (04:47)
[2017-06-21] MEDS ORDERED: METHYLPREDNISOLONE INJ 40 MG/1 ML SDV IV SCH (06:00)
[2017-06-21] MEDS ORDERED: POTASSIUM CHLORIDE 10 MEQ TABLET.SA PO ONE (06:00)
--- NOTE | 2017-06-21 06:17 | PDOC H&P ---
History of Present Illness Patient complains of: Worsening shortness of breath since yesterday morning. History of Present Illness: DENY GARCIA is a 32 year old female with history of mild intermittent asthma was admitted with above-mentioned complaint. The patient said that she woke up yesterday morning feeling short of breath. She used her rescue inhaler 2 puffs every 4 hours with no improvement in her symptoms. She said that she usually uses nebulizer treatment during an asthma exacerbation but she could not find the machine. Her called EMS and she was given 4 DuoNeb treatments, 125 mg IV Solu-Medrol and 1 g of magnesium sulfate x1 in the field per ED physician. But since there was still no improvement in her symptoms, she was brought to the hospital for further management and treatment. Per ED note, about 20 minutes post arrival, she was again short of breath and wheezy and she required an additional 3 DuoNeb treatments. The patient complains of pleuritic chest pain and nonproductive cough and chest congestion. She denies any fever, chills or any sick contact. She said that the change of weather sometimes is a trigger. In the ED, her temperature was 98.5, heart rate 122, respiratory rate 22, blood pressure 127/74 with oxygen saturation of 100% while on DuoNeb treatment. Her WBC was 12.0 and her hemoglobin was 13.0. Her CXR did not show any acute changes. Past Medical History Pulmonary Medical History: Reports: Asthma Hematology: Reports: Anemia Past Surgical History Past Surgical History: Reports: Appendectomy, Section - x3 Social History Lives with: Family Smoking Status: Never Smoker Cigarettes Packs Per Day: 0 Frequency of Alcohol Use: None Drugs: None Family History Parental Family History Reviewed: Yes - No cardiac disease in the family or diabetes. Children Family History Reviewed: No Sibling(s) Family History Reviewed.: Yes Medication/Allergy Home Medications: Albuterol Sulfate [Ventolin Hfa 8 gm Mdi (1 Mdi/ER Disp)] 2 puff IH ASDIR PRN Docusate Sodium [Colace 100 mg Capsule] 100 mg PO BID #60 capsule 10/03/16 Ferrous Sulfate 325 mg PO BID #60 tablet. 10/03/16 Ibuprofen [Motrin 800 mg Tablet] 800 mg PO Q6 #30 tablet 10/03/16 Oxycodone HCl/Acetaminophen [Percocet 5-325 mg Tablet] 1 tab PO Q4HP PRN #20 tablet 10/03/16 Ciprofloxacin HCl [Cipro 500 mg Tablet] 500 mg PO BID #16 tablet 05/26/17 Hydrocodone/Acetaminophen [[place] 5-325 mg Tablet] 1 tab PO Q4HP PRN #20 tablet 05/26/17 Ipratropium/Albuterol Sulfate [Duoneb 3 ml Ampul] 3 ml NEB RTQ6HP PRN #30 vial.neb 05/26/17 Prednisone [Deltasone 10 mg Tablet] 10 mg PO ASDIR PRN #21 tablet 05/26/17 Prednisone [Deltasone 20 mg Tablet] 3 tab PO DAILY 5 Days tablet 06/21/17 Allergies/Adverse Reactions: No Known Drug Allergies Allergy (Verified 09/27/16 02:35) Review of Systems ROS unobtainable: Other - Pertinent positives and negatives as per HPI. The patient denied any nausea vomiting, abdominal pain, diarrhea or constipation or any urinary symptoms. She also denied any focal weakness. Physical Exam Vital Signs: Temp Pulse Resp BP Pulse Ox 98.5 F 122 H 22 H 127/74 H 100 06/21/17 02:04 06/21/17 02:04 06/21/17 02:04 06/21/17 02:04 06/21/17 02:04 General appearance: PRESENT: no acute distress, well-developed Head exam: PRESENT: atraumatic, normocephalic Eye exam: PRESENT: conjunctiva pink, PERRLA. ABSENT: scleral icterus Mouth exam: PRESENT: moist, tongue midline, other - no oral thrush. Neck exam: PRESENT: full ROM. ABSENT: JVD Respiratory exam: PRESENT: decreased breath sounds - markedly decreased right > left.. ABSENT: rales, rhonchi, wheezes Cardiovascular exam: PRESENT: tachycardia - S1 S2 normal. Pulses: PRESENT: normal dorsalis pedis pul GI/Abdominal exam: PRESENT: normal bowel sounds, soft. ABSENT: distended, rebound, tenderness Rectal exam: PRESENT: deferred Extremities exam: PRESENT: full ROM. ABSENT: calf tenderness, pedal edema Neurological exam: PRESENT: alert, awake, oriented to person, oriented to place , oriented to time, oriented to situation. ABSENT: motor sensory deficit Psychiatric exam: PRESENT: appropriate affect, normal mood Skin exam: PRESENT: dry, intact, warm. ABSENT: cyanosis, rash Results Laboratory Results: Chief: WBC 12.0, hemoglobin 13.0, hematocrit 39.5, MCV 87, RDW 12.6, platelets 359. BMP: Sodium 142.8, potassium 2.9, chloride 101, bicarb 23, and anion gap 19, BUN 7, creatinine 0.62, glucose 151, calcium 8.9. Impressions: Chest X-Ray 06/21/17 01:53 IMPRESSION: 1. No acute pulmonary process identified. Assessment & Plan - Diagnosis (1) Status asthmaticus Qualifiers: Asthma severity: severe Asthma persistence: persistent Qualified Code(s) : J45.52 - Severe persistent asthma with status asthmaticus Is this a current diagnosis for this admission?: Yes Plan: CXR was negative. We will continue DuoNeb treatments and IV Solu-Medrol, Mucinex. Will also give Ativan as needed and monitor very closely since her condition may worsen. (2) Sinus tachycardia Is this a current diagnosis for this admission?: Yes Plan: Due to #1 and/or breathing treatments. Will monitor for now. (3) Hypokalemia Is this a current diagnosis for this admission?: Yes Plan: Will replace as needed. (4) Pleuritic chest pain Is this a current diagnosis for this admission?: Yes Plan: Will give IV Fentanyl as needed. - Time Time Spent: 30 to 50 Minutes Anticipated discharge: Home - Inpatient Certification Based on my medical assessment, after consideration of the patient's comorbidities, presenting symptoms, or acuity I expect that the services needed warrant INPATIENT care.: Yes I certify that my determination is in accordance with my understanding of Medicare's requirements for reasonable and necessary INPATIENT services [42 CFR 412.3e].: Yes
[2017-06-21] MEDS ORDERED: GUAIFENESIN 600 MG TABLET.SA PO ONE (07:00)
[2017-06-21] MEDS: IPRATROPIUM/ALBUTEROL 0.5-2.5 MG/3 ML AMPUL NEB SCH ×3 (08:10→20:10)
--- NOTE | 2017-06-21 08:59 | EKG REPORT ---
SEVERITY:- BORDERLINE ECG - SINUS TACHYCARDIA BORDERLINE T ABNORMALITIES, DIFFUSE LEADS : Confirmed by: Ryley Yancey MD 21-Jun-2017 08:59:22
[2017-06-21] MEDS: FENTANYL CITRATE INJ/PF 100 MCG/2 ML AMPUL IV PRN ×2 (09:55→14:39)
[2017-06-21] MEDS: FLUTICASONE NASAL SPRAY 50 MCG/SPRY 120 SPRAY/16 GM NASL PRN (09:55)
[2017-06-21] MEDS: GUAIFENESIN 600 MG TABLET.SA PO SCH ×2 (09:55→21:51)
[2017-06-21] MEDS ORDERED: METHYLPREDNISOLONE INJ 125 MG/2 ML SDV IV SCH (14:00)
--- NOTE | 2017-06-21 15:04 | PDOC PROGRESS REPORT ---
Subjective Progress Note for:: 06/21/17 Subjective:: Patient relates that she feels better when compared to admission. Review of systems All organ systems evaluated and negative except as in subjective All significant laboratories and diagnostics have been reviewed Reason For Visit: ASTHMA EXACERBATION Physical Exam Vital Signs: Temp Pulse Resp BP Pulse Ox 98.5 F 122 H 18 103/49 L 99 06/21/17 02:04 06/21/17 02:04 06/21/17 07:08 06/21/17 06:00 06/21/17 07:24 General appearance: PRESENT: cooperative, obese Head exam: PRESENT: atraumatic, normocephalic Eye exam: PRESENT: conjunctiva pink, EOMI, PERRLA Mouth exam: PRESENT: moist Neck exam: PRESENT: full ROM. ABSENT: JVD, lymphadenopathy, tenderness Respiratory exam: PRESENT: decreased breath sounds, wheezes. ABSENT: tachypnea , unlabored Cardiovascular exam: PRESENT: RRR. ABSENT: diastolic murmur, systolic murmur Vascular exam: PRESENT: normal capillary refill GI/Abdominal exam: PRESENT: normal bowel sounds, soft. ABSENT: tenderness Extremities exam: PRESENT: full ROM. ABSENT: pedal edema Musculoskeletal exam: PRESENT: ambulatory Neurological exam: PRESENT: alert, awake, oriented to person, oriented to place , oriented to time, oriented to situation, CN II-XII grossly intact Psychiatric exam: PRESENT: appropriate affect, normal mood Skin exam: PRESENT: intact, normal color Results Impressions: Chest X-Ray 06/21/17 01:53 IMPRESSION: 1. No acute pulmonary process identified. Assessment & Plan - Diagnosis (1) Asthma exacerbation Qualifiers: Asthma severity: mild Asthma persistence: persistent Qualified Code(s): J45.31 - Mild persistent asthma with (acute) exacerbation Is this a current diagnosis for this admission?: Yes Plan: Will add Singulair and to decrease the dose of steroids. (2) Hypokalemia Is this a current diagnosis for this admission?: Yes Plan: Will replace orally and trend (3) Pleuritic chest pain Is this a current diagnosis for this admission?: Yes Plan: Likely due to breathing effort. Will provide pain control - Time Time Spent with patient: Less than 15 minutes Medications reviewed and adjusted accordingly: Yes Anticipated discharge: Home Within: within 48 hours - Inpatient Certification Based on my medical assessment, after consideration of the patient's comorbidities, presenting symptoms, or acuity I expect that the services needed warrant INPATIENT care.: Yes I certify that my determination is in accordance with my understanding of Medicare's requirements for reasonable and necessary INPATIENT services [42 CFR 412.3e].: Yes Medical Necessity: Need Close Monitoring Due to Risk of Patient Decompensation
[2017-06-21] MEDS: POTASSIUM CHLORIDE 10 MEQ TABLET.SA PO SCH ×3 (17:18→23:54)
[2017-06-21] MEDS: OXYCODONE-ACETAMINOPHEN 5-325 MG TABLET PO PRN (20:32)
[2017-06-21] MEDS: METHYLPREDNISOLONE INJ 125 MG/2 ML SDV IV SCH (21:51)
[2017-06-21] MEDS: MONTELUKAST SODIUM 10 MG TABLET PO SCH (21:51)
[2017-06-22] MEDS: METHYLPREDNISOLONE INJ 125 MG/2 ML SDV IV SCH ×2 (05:40→13:24)
[2017-06-22 06:38] LABS: ANION GAP 14 (5-19); BLOOD UREA NITROGEN 8 mg/dL (7-20); CALCIUM 9.9 mg/dL (8.4-10.2); CARBON DIOXIDE 18 mmol/L (22-30); CHLORIDE 108 mmol/L (98-107); GLUCOSE 142 mg/dL (75-110); SODIUM 139.8 mmol/L (137-145)
[2017-06-22 06:39] LABS: HEMATOCRIT 36.7 % (36.0-47.0); HEMOGLOBIN 12.3 g/dL (12.0-15.5); MEAN CORPUSCULAR HEMOGLOBIN 28.7 pg (27.0-33.4); MEAN CORPUSCULAR HGB CONC 33.4 g/dL (32.0-36.0); MEAN CORPUSCULAR VOLUME 86 fl (80-97); PLATELET COUNT 369 10^3/uL (150-450); RED BLOOD COUNT 4.27 10^6/uL (3.72-5.28); RED CELL DISTRIBUTION WIDTH 12.7 % (11.5-14.0); WHITE BLOOD COUNT 21.7 10^3/uL (4.0-10.5)
[2017-06-22] MEDS: IPRATROPIUM/ALBUTEROL 0.5-2.5 MG/3 ML AMPUL NEB SCH ×3 (07:51→20:30)
[2017-06-22] MEDS: GUAIFENESIN 600 MG TABLET.SA PO SCH ×2 (09:41→21:19)
[2017-06-22] MEDS: FLUTICASONE NASAL SPRAY 50 MCG/SPRY 120 SPRAY/16 GM NASL PRN (09:42)
--- NOTE | 2017-06-22 12:37 | PDOC PROGRESS REPORT ---
Subjective Progress Note for:: 06/22/17 Subjective:: Patient feels a lot bettter decreased wheezing chest pain are improved repeat wbc elevated ; patient states cough productive of purulent mucous Reason For Visit: ASTHMA EXACERBATION Physical Exam Vital Signs: Temp Pulse Resp BP Pulse Ox 98.6 F 83 14 116/66 97 06/22/17 03:28 06/22/17 07:51 06/22/17 07:51 06/22/17 03:28 06/22/17 03:28 Intake & Output 06/21/17 06/22/17 06/23/17 00:59 00:59 00:59 Intake Total 840 390 Balance 840 390 Weight 70.1 kg 69.9 kg General appearance: PRESENT: no acute distress, well-developed, well-nourished Head exam: PRESENT: atraumatic, normocephalic Eye exam: PRESENT: conjunctiva pink, EOMI, PERRLA. ABSENT: scleral icterus Neck exam: ABSENT: carotid bruit, JVD, lymphadenopathy, thyromegaly Respiratory exam: PRESENT: clear to auscultation haim. ABSENT: rales, rhonchi, wheezes Cardiovascular exam: PRESENT: RRR. ABSENT: diastolic murmur, rubs, systolic murmur Pulses: PRESENT: normal dorsalis pedis pul GI/Abdominal exam: PRESENT: normal bowel sounds, soft. ABSENT: distended, guarding, mass, organolmegaly, rebound, tenderness Extremities exam: PRESENT: full ROM. ABSENT: calf tenderness, clubbing, pedal edema Neurological exam: PRESENT: alert, awake, oriented to person, oriented to place , oriented to time, oriented to situation, CN II-XII grossly intact. ABSENT: motor sensory deficit Results Laboratory Results: 06/22/17 05:09 06/22/17 05:09 06/22/17 06/22/17 05:09 05:09 WBC 21.7 H RBC 4.27 Hgb 12.3 Hct 36.7 MCV 86 MCH 28.7 MCHC 33.4 RDW 12.7 Plt Count 369 Sodium 139.8 Potassium 5.0 Chloride 108 H Carbon Dioxide 18 L Anion Gap 14 BUN 8 Creatinine 0.49 L Est GFR ( Amer) > 60 Est GFR (Non-Af Amer) > 60 Glucose 142 H Calcium 9.9 Impressions: Chest X-Ray 06/21/17 01:53 IMPRESSION: 1. No acute pulmonary process identified. Assessment & Plan - Time Time Spent with patient: (1) Asthma exacerbation Qualifiers: Asthma severity: mild Asthma persistence: persistent Qualified Code(s): J45.31 - Mild persistent asthma with (acute) exacerbation Is this a current diagnosis for this admission?: Yes Plan: Will add Singulair and to decrease the dose of steroids. much improved (2) Hypokalemia Is this a current diagnosis for this admission?: Yes Plan: Will replace orally and trend (3) Pleuritic chest pain Is this a current diagnosis for this admission?: Yes Plan: Likely due to breathing effort. Will provide pain control (4) Leukocytosis initiate IV cefriaxone -po azithro sputum culture repeat CBC and CXR in am august d/c in am if clinically stable Time Spent with patient: 25-34 minutes
[2017-06-22] MEDS ORDERED: CEFTRIAXONE 1 GM/D5W RTU 1 GM/50 ML RTUPB IV SCH (13:00)
[2017-06-22] MEDS ORDERED: CEFTRIAXONE SODIUM 1,000 MG in NORMAL SALINE 100 ML IV ONE (14:00)
[2017-06-22] MEDS ORDERED: PROMETHAZINE HCL INJ 25 MG/1 ML VIAL IV PRN (14:00)
[2017-06-22] MEDS ORDERED: CEFPODOXIME 200 MG TABLET PO ONE (17:00)
[2017-06-22] MEDS: AZITHROMYCIN 250 MG TABLET PO SCH (17:50)
[2017-06-22] MEDS: MONTELUKAST SODIUM 10 MG TABLET PO SCH (21:20)
[2017-06-22] MEDS ORDERED: METHYLPREDNISOLONE INJ 40 MG/1 ML SDV IV SCH (22:00)
[2017-06-23 05:28] LABS: HEMATOCRIT 37.4 % (36.0-47.0); HEMOGLOBIN 12.3 g/dL (12.0-15.5); MEAN CORPUSCULAR HEMOGLOBIN 28.1 pg (27.0-33.4); MEAN CORPUSCULAR VOLUME 85 fl (80-97); PLATELET COUNT 330 10^3/uL (150-450); RED BLOOD COUNT 4.38 10^6/uL (3.72-5.28); RED CELL DISTRIBUTION WIDTH 12.7 % (11.5-14.0); WHITE BLOOD COUNT 21.4 10^3/uL (4.0-10.5)
[2017-06-23 06:09] LABS: ABSOLUTE LYMPHOCYTES# (MANUAL) 2.1 10^3/uL (0.5-4.7); ABSOLUTE MONOCYTES # (MANUAL) 0.4 10^3/uL (0.1-1.4); ABSOLUTE NEUTROPHILS# (MANUAL) 18.8 10^3/uL (1.7-8.2); BASOPHILS % (MANUAL) 0 % (0-2); EOSINOPHILS % (MANUAL) 0 % (0-6); LYMPHOCYTES % (MANUAL) 10 % (13-45); MONOCYTES % (MANUAL) 2 % (3-13); SEGMENTED NEUTROPHILS % (MAN) 88 % (42-78); TOTAL CELLS COUNTED 100; TOXIC GRANULATION SLIGHT
[2017-06-23 06:10] LABS: OVALOCYTES SLIGHT; PLATELET COMMENT ADEQUATE; POIKILOCYTOSIS SLIGHT; TOXIC VACUOLATION PRESENT
[2017-06-23] MEDS: IPRATROPIUM/ALBUTEROL 0.5-2.5 MG/3 ML AMPUL NEB SCH ×2 (07:51→13:35)
--- NOTE | 2017-06-23 08:50 | RADIOLOGY REPORT (SQ) ---
EXAM DESCRIPTION: CHEST PA/LAT COMPLETED DATE/TIME: 06/23/2017 8:20 am REASON FOR STUDY: SOB COMPARISON: Two-view chest 05/26/2017 EXAM PARAMETERS: NUMBER OF VIEWS: two views TECHNIQUE: Digital Frontal and Lateral radiographic views of the chest acquired. RADIATION DOSE: NA LIMITATIONS: none FINDINGS: LUNGS AND PLEURA: No opacities, masses or pneumothorax. No pleural effusion. MEDIASTINUM AND HILAR STRUCTURES: No masses or contour abnormalities. HEART AND VASCULAR STRUCTURES: Heart normal size. No evidence for failure. BONES: No acute findings. HARDWARE: None in the chest. OTHER: No other significant finding. IMPRESSION: NO SIGNIFICANT RADIOGRAPHIC FINDING IN THE CHEST. TECHNICAL DOCUMENTATION: JOB ID: [id number] [employer]- All Rights Reserved Reading location - IP/workstation name: [facility]-RR2
[2017-06-23] MEDS: GUAIFENESIN 600 MG TABLET.SA PO SCH (09:22)
[2017-06-23] MEDS: OXYCODONE-ACETAMINOPHEN 5-325 MG TABLET PO PRN (09:22)
[2017-06-23] MEDS: FLUTICASONE NASAL SPRAY 50 MCG/SPRY 120 SPRAY/16 GM NASL PRN (09:25)
[2017-06-23] MEDS ORDERED: FLUTICASONE NASAL SPRAY 50 MCG/SPRY 120 SPRAY/16 GM NASL PRN (09:26)
[2017-06-23] MEDS ORDERED: CEFTRIAXONE SODIUM 1,000 MG in NORMAL SALINE 100 ML IV SCH (10:00)
[2017-06-23] MEDS ORDERED: CEFPODOXIME 200 MG TABLET PO SCH (10:00)
[2017-06-23 12:32] VITALS: BP 96/48
[2017-06-23] MEDS: AZITHROMYCIN 250 MG TABLET PO SCH (13:37)
--- NOTE | 2017-06-23 15:39 | RADIOLOGY REPORT (SQ) ---
EXAM DESCRIPTION: CTA CHEST COMPLETED DATE/TIME: 06/23/2017 3:02 pm REASON FOR STUDY: pleuritic chest pain COMPARISON: None. TECHNIQUE: CT scan of the chest performed using helical scanning technique with dynamic intravenous contrast injection. Images reviewed with lung, soft tissue and bone windows. Reconstructed coronal and sagittal MPR images reviewed. Additional 3 dimensional post-processing performed to develop Maximal Intensity Projection images (IL P). All images stored on PACS. All CT scanners at this facility use dose modulation, iterative reconstruction, and/or weight based d osing when appropriate to reduce radiation dose to as low as reasonably achievable (ALARA). [facility]: Dose Right [facility]: CareDose [facility]: Dose Right [facility]: Teradose 4D [facility]: VR1 CONTRAST TYPE AND DOSE: contrast/concentration: Isovue 370.00 mg/ml; Total Contrast Delivered: 61.0 ml; Total Saline Delivered: 106.0 ml 61 mL she is 3 Contrast bolus optimized for the pulmonary arteries. Not diagnostic for the aorta. RENAL FUNCTION: T8 RADIATION DOSE: CT Rad equipment meets quality standard of care and radiation dose reduction techniq ues were employed. CTDIvol: 1.9 - 9.4 mGy. DLP: 236 mGy-cm. . LIMITATIONS: None. FINDINGS: LUNGS AND PLEURA: Pleural-based parenchymal infiltrate posteriorly at the right base at th e level of the costophrenic angle. Differential includes atelectasis or infiltrate. Pulmonary infar ction is a consideration however no emboli identified proximal to the lesion. AORTA AND GREAT VESSELS: No aneurysm. Contrast bolus not optimized for the aorta. HEART: No pericardial effusion. No significant coronary artery calcifications. PULMONARY ARTERIES: No emboli visualized in the main pulmonary arteries or the segmental branches. HILAR AND MEDIASTINAL STRUCTURES: No identified masses or abnormal nodes. HARDWARE: None in the chest. UPPER ABDOMEN: Limited visualization of a well-defined circular mass at the level of the summer hepati s adjacent to the gallbladder and head of the pancreas. CT attenuation values suggestive of a solid mass. Recommend dedicated CT abdomen pelvis with IV and oral contrast. THYROID AND OTHER SOFT TISSUES: No masses. No adenopathy. BONES: No acute or significant finding. 3D MIPS: Confirm above findings. OTHER: No other significant finding. IMPRESSION: No pulmonary emboli. No aortic aneurysm. Pleural-based parenchymal infiltrate posterio rly right base. See above discussion. Limited visualization of a solid-appearing round mass adjacen t to the gallbladder and pancreas. Dedicated CT abdomen and pelvis with IV and oral contrast should be considered. COMMENT: Quality ID # [id number]: Final reports with documentation of one or more dose reduction techniques (e.g., Automated exposure control, adjustment of the mA and/or kV according to patient size, use of iterative reconstruction technique) TECHNICAL DOCUMENTATION: JOB ID: [id number] [employer]- All Rights Reserved Reading location - IP/workstation name: [email or web address]
[2017-06-23 17:05] LABS: ALANINE AMINOTRANSFERASE 38 U/L (9-52); ALBUMIN 3.9 g/dL (3.5-5.0); ALKALINE PHOSPHATASE 50 U/L (38-126); ASPARTATE AMINO TRANSFERASE 22 U/L (14-36); BILIRUBIN,DIRECT 0.2 mg/dL (0.0-0.4); BILIRUBIN,TOTAL 0.2 mg/dL (0.2-1.3); LIPASE 73.6 U/L (23-300); TOTAL PROTEIN 7.1 g/dL (6.3-8.2)
--- NOTE | 2017-06-24 20:29 | PDOC DISCHARGE SUMMARY ---
General - Admit/Disc Date/PCP Admission Date/Primary Care Provider: 06/21/17 03:46 Discharge Date: 06/23/17 - Discharge Diagnosis (1) Pneumonia Is this a current diagnosis for this admission?: Yes (2) Leukocytosis Is this a current diagnosis for this admission?: Yes (3) Abdominal mass Is this a current diagnosis for this admission?: Yes (4) Asthma exacerbation Is this a current diagnosis for this admission?: Yes - Additional Information Resuscitation Status: Full Code Discharge Diet: As Tolerated Discharge Activity: Activity As Tolerated Prescriptions: Miconazole Nitrate [Monistat 7] 45 gm VG QHS 7 Days #1 cream.appl Montelukast Sodium [Singulair 10 mg Tablet] 10 mg PO QHS 30 Days #30 tablet Oxycodone HCl/Acetaminophen [Percocet 5-325 mg Tablet] 1 tab PO Q4HP PRN #15 tablet PRN Reason: Albuterol Sulfate [Ventolin 0.083% Neb 2.5 mg/3 mL Ampul] 2.5 mg NEB RTQ3HP PRN 30 Days #30 vial.neb PRN Reason: Guaifenesin [Mucinex Sr 600 mg Tablet.sa] 1,200 mg PO Q12 10 Days #20 tablet.sa Levofloxacin [Levaquin 750 mg Tablet] 750 mg PO DAILY #10 tab Nebulizer and Compressor [Home Nebulizer Plus Sidestream] 1 each MC Q4H PRN 30 Days #1 each PRN Reason: Prednisone 20 mg PO ASDIR PRN 12 Days #14 tablet PRN Reason: Home Medications: Albuterol Sulfate [Proair Hfa Inhalation Aerosol 8.5 gm Mdi] 2 puff IH Q4HP PRN 06/21/17 Fluticasone Propionate [Flovent Hfa 110 Mcg Inhalation Aerosol 12 gm] 2 puff IH DAILY 06/21/17 Albuterol Sulfate [Ventolin 0.083% Neb 2.5 mg/3 mL Ampul] 2.5 mg NEB RTQ3HP PRN 30 Days #30 vial.neb 06/23/17 Guaifenesin [Mucinex Sr 600 mg Tablet.sa] 1,200 mg PO Q12 10 Days #20 tablet.sa 06/23/17 Levofloxacin [Levaquin 750 mg Tablet] 750 mg PO DAILY #10 tab 06/23/17 Miconazole Nitrate [Monistat 7] 45 gm VG QHS 7 Days #1 cream.appl 06/23/17 Montelukast Sodium [Singulair 10 mg Tablet] 10 mg PO QHS 30 Days #30 tablet Nebulizer and Compressor [Home Nebulizer Plus Sidestream] 1 each MC Q4H PRN 30 Days #1 each 06/23/17 Oxycodone HCl/Acetaminophen [Percocet 5-325 mg Tablet] 1 tab PO Q4HP PRN #15 tablet 06/23/17 Prednisone 20 mg PO ASDIR PRN 12 Days #14 tablet 06/23/17 History of Present Illness Patient complains of: SOB pleuritic chest pains History of Present Illness: GALILEO GARCIA is a 32 year old female with history of mild intermittent asthma was admitted with above-mentioned complaint. The patient said that she woke up yesterday morning feeling short of breath. She used her rescue inhaler 2 puffs every 4 hours with no improvement in her symptoms. She said that she usually uses nebulizer treatment during an asthma exacerbation but she could not find the machine. Her called EMS and she was given 4 DuoNeb treatments, 125 mg IV Solu-Medrol and 1 g of magnesium sulfate x1 in the field per ED physician. But since there was still no improvement in her symptoms, she was brought to the hospital for further management and treatment. Per ED note, about 20 minutes post arrival, she was again short of breath and wheezy and she required an additional 3 DuoNeb treatments. Hospital Course Hospital Course: Patient was admitted with shortness of breath and pleuritic chest pain with a diagnosis of asthma acute exacerbation she was treated with nebs and steroids improved somewhat.. The pleuritic chest pain persisted. She had a CTA of the chest that showed a pneumonic infiltrate at the right base ; it was negative for PE CTA of the chest also showed a mass adjacent to gallbladder and pancreas difficult to identify Patient was treated with Levaquin p.o. and was discharged home on prednisone taper She is to follow-up with her primary care physician for CT abdomen and pelvis to be performed as an outpatient Physical Exam Vital Signs: Temp Pulse Resp BP Pulse Ox 97.2 F 89 16 96/48 L 95 06/23/17 12:24 06/23/17 13:37 06/23/17 13:37 06/23/17 12:24 06/23/17 13:37 Intake & Output 06/23/17 06/24/17 06/25/17 00:59 00:59 00:59 Intake Total 393 320 Output Total 800 0 Balance -407 320 Weight 69.9 kg 69.8 kg General appearance: PRESENT: no acute distress, well-developed, well-nourished Head exam: PRESENT: atraumatic, normocephalic Eye exam: PRESENT: conjunctiva pink, EOMI, PERRLA. ABSENT: scleral icterus Neck exam: ABSENT: carotid bruit, JVD, lymphadenopathy, thyromegaly Respiratory exam: PRESENT: clear to auscultation haim. ABSENT: rales, rhonchi, wheezes Cardiovascular exam: PRESENT: RRR. ABSENT: diastolic murmur, rubs, systolic murmur Pulses: PRESENT: normal dorsalis pedis pul GI/Abdominal exam: PRESENT: normal bowel sounds, soft. ABSENT: distended, guarding, mass, organolmegaly, rebound, tenderness Extremities exam: PRESENT: full ROM. ABSENT: calf tenderness, clubbing, pedal edema Neurological exam: PRESENT: alert, awake, oriented to person, oriented to place , oriented to time, oriented to situation, CN II-XII grossly intact. ABSENT: motor sensory deficit Results Laboratory Results: 06/23/17 04:45 06/22/17 05:09 Impressions: Chest X-Ray 06/23/17 06:00 IMPRESSION: NO SIGNIFICANT RADIOGRAPHIC FINDING IN THE CHEST. Chest/Abdomen CTA 06/23/17 12:52 IMPRESSION: No pulmonary emboli. No aortic aneurysm. Pleural-based parenchymal infiltrate posteriorly right base. See above discussion. Limited visualization of a solid-appearing round mass adjacent to the gallbladder and pancreas. Dedicated CT abdomen and pelvis with IV and oral contrast should be considered. Qualifiers - * PATEINT BEING DISCHARGED WITH ANY OF THE FOLLOWING DIAGNOSIS?: No Plan Discharge Plan: Follow-up with primary care physician in a week time Time Spent: Greater than 30 Minutes
== END 2017-06-23 16:38 | disposition home or self-care (01) | DRG 202 ==
LOC: ER 01:44 → EH 03:46 → 4S 09:04
PROVIDERS: ADMIT Internal Medicine Geriatric Medicine; ATTEND Internal Medicine Geriatric Medicine
PROC: 3E0F73Z Introduction of Anti-inflammatory into Respiratory Tract, Via Natural or Artificial Opening (ICD-10-PCS; principal; 2017-06-21)
DX: J45.52 Severe persistent asthma with status asthmaticus (principal); J18.9 Pneumonia, unspecified organism; E87.6 Hypokalemia; R00.0 Tachycardia, unspecified; D72.829 Elevated white blood cell count, unspecified; Z90.49 Acquired absence of other specified parts of digestive tract
CPT/HCPCS: 36415; 71045; 71046; 71275; 80048; 80076; 83690; 85025; 85027; 87070; 87077; 87186; 87205; 93005; 93010; 94640; 96374; 99285; J1885; J2060; J2920; J2930; J3010; J3490; J7030; J7620

== ENCOUNTER 2017-09-06 11:52 | Emergency (ER) | payer MEDICAID ==
[2017-09-06 12:00] VITALS: BP 123/72
--- NOTE | 2017-09-06 12:08 | ER Document Report ---
HPI - HPI Pain Level: 3 Context: Patient is a 32-year-old female presented emergency department the chief complaint of sore throat and fever for the past 2 days. She denies any sinus congestion, sinus drainage, ear pain, cough, chest pain, nausea or vomiting. Patient states her pain is been localized to her throat hurts with swallowing. She denies any sick contacts. States she did receive a flu vaccine this year. - REPRODUCTIVE LMP: 09/03/17 Reproductive: DENIES: : Past Medical History - Social History Smoking Status: Never Smoker Family History: Reviewed & Not Pertinent Pulmonary Medical History: Reports: Hx Asthma Renal/ Medical History: Denies: Hx Peritoneal Dialysis Past Surgical History: Reports: Hx Appendectomy, Hx Section - x3 Vertical Provider Document - CONSTITUTIONAL Agree With Documented VS: Yes Notes: PHYSICAL EXAM GENERAL: Alert, interacts well. HEENT: NCAT, pale conjunctiva, extraocular movements intact, pupils PERRL. external ear normal, no evidence of external auditory canal tenderness, blood/ drainage, cerumen impaction, TM intact without evidence of effusion, bulging, injection, MMM, Uvula midline. Airway patent. Evidence of pharyngeal erythema without evidence of tonsillar enlargement, peritonsillar abscess, retropharyngeal abscess. NECK: Full range of motion. Supple. Trachea midline. LUNGS: Clear to auscultation bilaterally, no wheezes, rales, or rhonchi. No respiratory distress. HEART: Regular rate and rhythm. No murmurs, gallops, or rubs. EXTREMITIES: Moves all 4 extremities spontaneously. No edema, radial and dorsalis pedis pulses 2/4 bilaterally. No cyanosis. NEUROLOGICAL: Alert and oriented x4. Normal speech. PSYCH: Normal affect, normal mood. SKIN: Warm, dry, normal turgor. No rashes or lesions noted. - INFECTION CONTROL TRAVEL OUTSIDE OF THE [place] IN LAST 30 DAYS: No Course - Re-evaluation Re-evalutation: 09/06/17 14:08 Presentation of several days of sore throat in an otherwise well-appearing patient. Rapid strep is positive. History and exam are not consistent with a retropharyngeal abscess or peritonsillar abscess. Airway is patent. No difficulty handling oral secretions. Vitals within normal limits. Patient has been treated with an IM dose of penicillin. At this time will discharge with return precautions and follow-up recommendations. Verbal discharge instructions given a the bedside and opportunity for questions given. Medication warnings reviewed. Patient is in agreement with this plan and has verbalized understanding of return precautions and the need for primary care follow-up in the next week. - Vital Signs Vital signs: Temp Pulse Resp BP Pulse Ox 101.1 F H 126 H 16 123/72 100 09/06/17 11:58 09/06/17 11:58 09/06/17 11:58 09/06/17 11:58 09/06/17 11:58 Discharge - Discharge Clinical Impression: Strep pharyngitis Condition: Good Disposition: HOME, SELF-CARE Additional Instructions: You have been diagnosed with strep throat based on a positive strep test. You have been treated with a dose of penicillin here in the emergency department and do not need any additional antibiotics. You have also been given a dose of steroids to help with your throat discomfort. Please continue to take ibuprofen 600 mg every 6 hours or Tylenol 1000 mg every 6 hours as needed for throat discomfort. You can also gargle with salt water. Continue to drink plenty of fluids. Follow-up with your primary care doctor in the next several days. Return if you become unable to swallow, have difficulty breathing, pass out, have persistent vomiting that prevents you from being able to tolerate fluids, or have any other symptoms that are concerning to you. Forms: Return to Work Referrals: NASEEM RICHARDSON DO [ASSOCIATE] - Follow up as needed
[2017-09-06] MEDS ORDERED: IBUPROFEN 800 MG TABLET PO ONE (12:17)
[2017-09-06] MEDS ORDERED: PENICILLIN G BENZATHINE 1.2 MILLION UNIT/2 ML DISP.SYRIN IM ONE (14:07)
[2017-09-06] MEDS ORDERED: DEXAMETHASONE SOD PHOS INJ 10 MG/1 ML VIAL IM ONE (14:07)
== END 2017-09-06 14:26 | disposition home or self-care (01) ==
LOC: ER 11:52
DX: J02.0 Streptococcal pharyngitis (principal); R50.9 Fever, unspecified
CPT/HCPCS: 99283; 96372; 87880; J3490; J0561; J1100

== ENCOUNTER 2017-10-10 22:19 | Emergency (ER) | payer MEDICAID ==
--- NOTE | 2017-10-11 00:51 | ER Document Report ---
ED GI/ - General Chief Complaint: Vag Bleeding, +preg <12wks Stated Complaint: VAGINAL BLEEDING Time Seen by Provider: 10/11/17 00:51 Notes: The patient is a 32-year-old female, , 5 weeks by LMP, presents with a small amount of vaginal spotting earlier tonight. Patient was also on antibiotics few weeks ago for strep throat and she thinks she is developing a yeast infection. She denies abdominal pain, nausea, vomiting, dysuria, flank pain or fevers. TRAVEL OUTSIDE OF THE [place] IN LAST 30 DAYS: No - Related Data Allergies/Adverse Reactions: No Known Drug Allergies Allergy (Verified 09/06/17 12:22) Past Medical History - General Information source: Patient - Social History Smoking Status: Unknown if Ever Smoked Family History: Reviewed & Not Pertinent Pulmonary Medical History: Reports: Hx Asthma Renal/ Medical History: Denies: Hx Peritoneal Dialysis Past Surgical History: Reports: Hx Appendectomy, Hx Section - x3 Review of Systems - Review of Systems Notes: REVIEW OF SYSTEMS: CONSTITUTIONAL: -fevers, -chills EENT: -eye pain, -difficulty swallowing, -nasal congestion CARDIOVASCULAR: -chest pain, -syncope. RESPIRATORY: -cough, -SOB GASTROINTESTINAL: -abdominal pain, -nausea, -vomiting, -diarrhea GENITOURINARY: -dysuria, -hematuria, +vaginal spotting MUSCULOSKELETAL: -back pain, -neck pain SKIN: -rash or skin lesions. HEMATOLOGIC: -easy bruising or bleeding. LYMPHATIC: -swollen, enlarged glands. NEUROLOGICAL: -altered mental status or loss of consciousness, -headache, - neurologic symptoms PSYCHIATRIC: -anxiety, -depression. ALL OTHER SYSTEMS REVIEWED AND NEGATIVE. Physical Exam - Vital signs Vitals: Temp Resp BP Pulse Ox 99.4 F 16 114/58 L 100 10/10/17 22:54 10/10/17 22:54 10/10/17 22:54 10/10/17 22:54 - Notes Notes: PHYSICAL EXAMINATION: GENERAL: Well-appearing, well-nourished and in no acute distress. HEAD: Atraumatic, normocephalic. EYES: Pupils equal round and reactive to light, extraocular movements intact, sclera anicteric, conjunctiva are normal. ENT: nares patent, oropharynx clear without exudates. Moist mucous membranes. NECK: Normal range of motion, supple without lymphadenopathy LUNGS: Breath sounds clear to auscultation bilaterally and equal. No wheezes rales or rhonchi. HEART: Regular rate and rhythm without murmurs ABDOMEN: Soft, nontender, normoactive bowel sounds. No guarding, no rebound. No masses appreciated. : Deferred at this time after US. EXTREMITIES: Normal range of motion, no pitting or edema. No cyanosis. NEUROLOGICAL: Cranial nerves grossly intact. Normal speech, normal gait. Normal sensory and motor exams. PSYCH: Normal mood, normal affect. SKIN: Warm, Dry, normal turgor, no rashes or lesions noted. Course - Re-evaluation Re-evalutation: Patient provided a copy of her ultrasound report, which shows a single intrauterine fetus with an estimated gestational age of 5 weeks 4 days. Cervix is closed. No pole identified and explained to patient that is most likely due to early , but she needs to follow-up with OB to confirm that this is a viable . Patient was on antibiotics last week and is requesting Diflucan for early yeast infection. Given strict return precautions and she understands. - Vital Signs Vital signs: Temp Pulse Resp BP Pulse Ox 98.1 F 95 16 106/55 L 100 10/11/17 02:25 10/11/17 02:25 10/11/17 02:25 10/11/17 02:25 10/11/17 02:25 - Laboratory Laboratory results interpreted by me: 10/11/17 10/11/17 01:13 01:20 Beta HCG, Quant 7537.80 H Urine Ascorbic Acid 40 H - Diagnostic Test Radiology reviewed: Image reviewed, Reports reviewed Radiology results interpreted by me: OB US: Single intrauterine with estimated gestational age of 5 weeks, 4 days. No pole identified. Differential considerations include early normal and anembryonic . Continued close clinical, laboratory , and sonographic follow-up recommended. Discharge - Discharge Clinical Impression: Vaginal bleeding before 22 weeks gestation Condition: Stable Disposition: HOME, SELF-CARE Additional Instructions: Follow-up with the OB doctor for further evaluation and treatment and to confirm you have a viable . : You are . care is best started as early in as possible. If you're unsure about continuing this , you should discuss this with your physician or with payroll benefits administrator at [facility]. You should take only medications approved by your physician. Acetaminophen can safely be taken for minor pains. As a rule, medication for chronic conditions such as asthma or seizures can safely be continued. You should discuss with the physician every medicine you take. Any regular exercise program can be continued. Talk to your physician, however, before engaging in competitive or demanding sports. Alcohol, smoking, and "street drugs" are dangerous to your baby. Cocaine is especially dangerous. Don't use any illicit drugs! BLEEDING DURING EARLY : You have been evaluated for passing blood while . While we take this symptom very seriously, most women with your degree of bleeding will go on to have a perfectly normal baby. At this time, there is no indication that a miscarriage will occur. (A miscarriage occurs when the fetus is abnormal. There is no medicine or treatment to prevent it.) A more serious cause of bleeding is tubal (or ectopic) . An ultrasound usually can show whether the is in the uterus or in the tube. Sometimes in early , no fetus is seen. In this case, careful follow-up, including repeat blood tests and repeat ultrasound, is necessary. Do not douche or have sex for at least a week, or until OK'd by the doctor. Don't use tampons. Call the doctor or return for re-examination if there is an increase in bleeding or cramping, extreme weakness, fainting, new abdominal pain, fever, or passage of tissue. THREATENED MISCARRIAGE: You have been evaluated for a possible miscarriage. At this time, there is no indication that a miscarriage will occur. Most women with your symptoms will go on to have a perfectly normal baby. However, careful observation will be necessary. A miscarriage occurs when the fetus is abnormal. There is no medicine or treatment for it. You should rest in bed until the symptoms have resolved. Do not douche or have sex for at least a week, or until OK'd by the doctor. Call the doctor or return for re-examination if there is an increase in bleeding or cramping, or passage of tissue. REPEAT BLOOD TEST: At this time, it is uncertain if you have a viable . During the first three months of , the hormone produced from the placenta will steadily rise, usually doubling in value every 2 - 3 days. In order to determine if your is viable and likely be succesful, a repeat of this blood test for the hormone is recommended in 2 - 3 days. An order for this test to be done as an outpatient is being provided. After you have this repeat test done, call your doctor or call us for the results. If the value of the test is increasing as would be expected in a normal , then your is likely to be ok. However, if the value of the test is declining, it will suggest something has happened with your and it will not likely be a successful . FOLLOW-UP CARE: If you have been referred to a physician for follow-up care, call the physician s office for an appointment as you were instructed or within the next two days. If you experience worsening or a significant change in your symptoms (very heavy bleeding with large clots of blood, passage of tissue, more severe abdominal / pelvic pain or cramping, feeling faint or severe weakness, fever, etc.), notify the physician immediately or return to the Emergency Department at any time for re-evaluation. OBSTETRIC-GYNECOLOGIC (OB-RIGGER UP) PHYSICIANS IN [place]: The [facility] [address] [place], [place] [phone] [facility] [address] [place] [address] [phone] For active duty and dependents diagnosed with a threatened or miscarriage, you should follow up in the following manner: Standard patients who have a local civilian provider should follow up with that provider. Patients of the Family Practice Clinic should call your Team Nurse at 8: 00 am the following morning for further instructions. If you are neither a Standard patient nor a patient of the Family Practice Clinic, you should follow up at the [facility] ([facility]) . Patients already enrolled in the [facility], Prime patients not assigned to the Family Practice Clinic, and Active Duty patients not assigned to Family Practice Clinic should report to the [facility] Lab at 8:00 am the next morning that the [facility] is open and then you will be seen in the OB Clinic at 11:00 am. Prescriptions: Fluconazole [Diflucan] 150 mg PO ONCE PRN #1 tablet PRN Reason: Referrals: TR ROSA MD [ACTIVE STAFF] - Follow up as needed
[2017-10-11 01:40] LABS: APPEARANCE,URINE CLEAR; BILIRUBIN,URINE NEGATIVE (NEGATIVE); COLOR,URINE YELLOW; GLUCOSE, URINE NEGATIVE (NEGATIVE); KETONES,URINE NEGATIVE (NEGATIVE); LEUKOCYTE ESTERASE,URINE NEGATIVE (NEGATIVE); NITRITE,URINE NEGATIVE (NEGATIVE); PROTEIN,URINE NEGATIVE (NEGATIVE); URINE SPECIFIC GRAVITY 1.024; UROBILINOGEN,URINE NEGATIVE mg/dL (<2.0)
--- NOTE | 2017-10-11 02:24 | RADIOLOGY REPORT (SQ) ---
EXAM DESCRIPTION: US TRANSVAGINAL COMPLETED DATE/TME: 10/11/2017 00:22 CLINICAL HISTORY: 32 years, Female, 5 weeks, vaginal bleeding LMP 09/05/2017 COMPARISON: None. TECHNIQUE: Complete first trimester surgical ultrasound with transvaginal imaging. FINDINGS: Uterus measures 8.8 x 5.3 x 5.4 cm. Cervical length of 3.3 cm. The cervix is closed. No myometrial abnormalities. Within the endometrial canal there is a gestational sac. Normal-appearing yolk sac. Mean sac diameter of 0.8 cm compatible with an estimated gestational age of 5 weeks, 4 days. No pole or cardiac activity identified. Small amount of free pelvic fluid. The right ovary is not identified. Left ovary measures 2.5 x 1.7 x 1.8 cm. No large adnexal masses. IMPRESSION: Single intrauterine with estimated gestational age of 5 weeks, 4 days. No pole identified. Differential considerations include early normal and anembryonic . Continued close clinical, laboratory, and sonographic follow-up recommended 2010 [employer]- All Rights Reserved
[2017-10-11 02:28] VITALS: BP 106/55
== END 2017-10-11 02:50 | disposition home or self-care (01) ==
LOC: ER 22:19
DX: O26.851 Spotting complicating pregnancy, first trimester (principal); O98.811 Other maternal infectious and parasitic diseases complicating pregnancy, first trimester; B37.9 Candidiasis, unspecified; O99.511 Diseases of the respiratory system complicating pregnancy, first trimester; J45.909 Unspecified asthma, uncomplicated; Z3A.01 Less than 8 weeks gestation of pregnancy
CPT/HCPCS: 36415; 76817; 81001; 84702; 86900; 86901; 99284

== ENCOUNTER 2017-12-11 12:42 | Emergency (ER) | payer MEDICAID ==
[2017-12-11] MEDS ORDERED: NORMAL SALINE 1000 ML 1,000 ML IV PRN (13:13)
[2017-12-11] MEDS ORDERED: PROCHLORPERAZINE EDISYLATE INJ 10 MG/2 ML VIAL IV ONE (13:13)
[2017-12-11] MEDS ORDERED: RINGERS SOLUTION,LACTATED 1,000 ML IV ONE (13:13)
--- NOTE | 2017-12-11 13:14 | ER Document Report ---
ED Medical Screen (RME) - General Chief Complaint: Nausea/Vomiting Stated Complaint: NAUSEA, VOMITING Time Seen by Provider: 12/11/17 13:11 Notes: 32 years old female who is 14 weeks presents today with 3 day history of nausea and vomiting unable to keep anything down, feeling dehydrated and dizzy. Denies any abdominal pain or cramps. Denies any fever chills or other constitutional symptoms. This is her fourth with 3 living children. in the past TRAVEL OUTSIDE OF THE [place] IN LAST 30 DAYS: No - Related Data Allergies/Adverse Reactions: No Known Drug Allergies Allergy (Verified 12/11/17 12:44) Past Medical History - Social History Chew tobacco use (# tins/day): No Frequency of alcohol use: None Drug Abuse: None Pulmonary Medical History: Reports: Hx Asthma Renal/ Medical History: Denies: Hx Peritoneal Dialysis Past Surgical History: Reports: Hx Appendectomy, Hx Section - x3 - Immunizations History of Influenza Vaccine for 01/2017 - 06/2017 Season: Yes Influenza Administration Date for 01/2017 - 06/2017 Season: 01/25/17 Physical Exam - Vital signs Vitals: Temp Pulse Resp BP Pulse Ox 98.8 F 96 18 115/64 100 12/11/17 12:44 12/11/17 12:44 12/11/17 12:44 12/11/17 12:44 12/11/17 12:44 Course - Vital Signs Vital signs: Temp Pulse Resp BP Pulse Ox 98.8 F 96 18 115/64 100 12/11/17 12:44 12/11/17 12:44 12/11/17 12:44 12/11/17 12:44 12/11/17 12:44
--- NOTE | 2017-12-11 15:06 | ER Document Report ---
HPI - HPI Patient complains to provider of: Vomiting Onset: Other - 3 days Onset/Duration: Persistent Quality of pain: No pain Pain Level: Denies Context: Patient is currently 14 weeks and complains of vomiting for the past 3 days. Patient reports vomiting 4 episodes today. Patient denies any vaginal bleeding abdominal pain or vaginal discharge. Patient denies any complications during the so far. Associated Symptoms: Nausea, Vomiting. denies: Fever Exacerbated by: Denies Relieved by: Denies Similar symptoms previously: Yes Recently seen / treated by doctor: No - ROS ROS below otherwise negative: Yes Systems Reviewed and Negative: Yes All other systems reviewed and negative - CONSTITUTIONAL Constitutional: DENIES: Fever, Chills - NEURO Neurology: DENIES: Headache, Weakness - GASTROINTESTINAL Gastrointestinal: REPORTS: Nausea, Patient vomiting. DENIES: Abdominal Pain, Diarrhea - URINARY Urinary: DENIES: Dysuria, Urgency, Frequency - REPRODUCTIVE Reproductive: REPORTS: : - MUSCULOSKELETAL Musculoskeletal: DENIES: Back Pain - DERM Skin Color: Normal Skin Problems: None Past Medical History - General Information source: Patient Last Menstrual Period: 14 weeks - Social History Smoking Status: Never Smoker Chew tobacco use (# tins/day): No Frequency of alcohol use: None Drug Abuse: None Occupation: [employer] Lives with: Family Family History: Reviewed & Not Pertinent Patient has suicidal ideation: No Patient has homicidal ideation: No Pulmonary Medical History: Reports: Hx Asthma Renal/ Medical History: Denies: Hx Peritoneal Dialysis Past Surgical History: Reports: Hx Appendectomy, Hx Section - x3 Vertical Provider Document - CONSTITUTIONAL Agree With Documented VS: Yes Exam Limitations: No Limitations General Appearance: WD/WN, No Apparent Distress - INFECTION CONTROL TRAVEL OUTSIDE OF THE [place] IN LAST 30 DAYS: No - HEENT HEENT: Atraumatic, Normal ENT Exam, Normocephalic - NECK Neck: Normal Inspection, Supple. negative: Lymphadenopathy-Left, Lymphadenopathy-Right - RESPIRATORY Respiratory: Breath Sounds Normal, No Respiratory Distress, Chest Non-Tender - CARDIOVASCULAR Cardiovascular: Regular Rate, Regular Rhythm, No Murmur. negative: Tachycardia - GI/ABDOMEN Gastrointestinal: Abdomen Soft, Abdomen Non-Tender, Normal Bowel Sounds. negative: Abdominal Guarding - BACK Back: Normal Inspection. negative: CVA Tenderness-Right, CVA Tenderness-Left - MUSCULOSKELETAL/EXTREMETIES Musculoskeletal/Extremeties: MAEW, FROM - NEURO Level of Consciousness: Awake, Alert, Appropriate Motor/Sensory: No Motor Deficit - DERM Integumentary: Warm, Dry, No Rash Course - Re-evaluation Re-evalutation: 12/11/17 14:58 Patient received a liter of IV fluids and feels better. Patient has been up to the bathroom to void. Patient denies any abdominal pain, dysuria, vaginal bleeding or discharge. Patient was given oral fluids and has tolerated oral fluids without emesis. Patient is requesting to be discharged at this time. Patient nontoxic in appearance. Patient encouraged to follow-up with her OB/ OCEANOLOGY TEACHER for recheck on Thursday. - Vital Signs Vital signs: Temp Pulse Resp BP Pulse Ox 98.8 F 96 18 115/64 100 12/11/17 12:44 12/11/17 12:44 12/11/17 12:44 12/11/17 12:44 12/11/17 12:44 Discharge - Discharge Clinical Impression: Vomiting affecting Condition: Stable Disposition: HOME, SELF-CARE Instructions: Intravenous (IV) Fluids ([facility]), Vomiting ([facility]) Additional Instructions: Return immediately for any new or worsening symptoms Followup with your primary care provider, call tomorrow to make a followup appointment You may take Benadryl [id number] to help with nausea symptoms at home. Prescriptions: Metoclopramide HCl [Reglan] 10 mg PO Q8 PRN #12 tablet PRN Reason: Forms: Return to Work [facility] - Follow up as needed [facility] [Provider Group] - Follow up as needed
[2017-12-11 16:13] VITALS: BP 104/61
== END 2017-12-11 15:40 | disposition home or self-care (01) ==
LOC: ER 12:42
DX: O21.9 Vomiting of pregnancy, unspecified (principal); O99.512 Diseases of the respiratory system complicating pregnancy, second trimester; J45.909 Unspecified asthma, uncomplicated; Z3A.14 14 weeks gestation of pregnancy
CPT/HCPCS: 99284; 96361; 96374; J0780; J7030

== ENCOUNTER 2018-01-31 09:27 | Emergency (ER) | payer MEDICAID ==
[2018-01-31] MEDS ORDERED: IPRATROPIUM/ALBUTEROL 0.5-2.5 MG/3 ML AMPUL NEB ONE (09:48)
[2018-01-31] MEDS ORDERED: CETIRIZINE 5 MG TABLET PO ONE (10:01)
[2018-01-31] MEDS ORDERED: ALBUTEROL SULFATE HFA (90 MCG/PUFF) 8 GM MDI (1 MDI/ER DISP) IH ONE ×2 (11:26→11:28)
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
[2018-01-31 11:52] VITALS: BP 105/60
--- NOTE | 2018-01-31 19:10 | EKG REPORT ---
SEVERITY:- NORMAL ECG - SINUS RHYTHM : Confirmed by: Homar Ponce 31-Jan-2018 19:10:08
== END 2018-01-31 11:57 | disposition home or self-care (01) ==
LOC: ER 09:27
DX: O26.92 Pregnancy related conditions, unspecified, second trimester (principal); R06.02 Shortness of breath; Z3A.20 20 weeks gestation of pregnancy
CPT/HCPCS: 93005; 94640; 99285; 93010; J3490 ×2; J7620

== ENCOUNTER 2018-02-18 13:32 | Outpatient (CLI) | payer MEDICAID ==
[2018-02-18 14:30] LABS: BACTERIA (WET MOUNT) 4+ BACTERIA SEEN; EPITHELIALS (WET MOUNT) 3+ EPITHELIALS SEEN; RBCS (WET MOUNT) NO RBCS SEEN; T.VAGINALIS (WET MOUNT) NO TRICHOMONAS SEEN; WBCS (WET MOUNT) 2+ WBCS SEEN; YEAST (WET MOUNT) NO YEAST SEEN
[2018-02-18 14:36] LABS: AMORPHOUS SEDIMENT,URINE 1+ /HPF; APPEARANCE,URINE TURBID; BILIRUBIN,URINE NEGATIVE (NEGATIVE); CALCIUM OXALATE CRYSTALS,URINE FEW /HPF; COLOR,URINE YELLOW; GLUCOSE, URINE NEGATIVE (NEGATIVE); KETONES,URINE NEGATIVE (NEGATIVE); LEUKOCYTE ESTERASE,URINE NEGATIVE (NEGATIVE); NITRITE,URINE NEGATIVE (NEGATIVE); PROTEIN,URINE NEGATIVE (NEGATIVE); URINE SPECIFIC GRAVITY 1.015; UROBILINOGEN,URINE NEGATIVE mg/dL (<2.0)
[2018-02-18 15:00] LABS: URINE AMPHETAMINES SCREEN NEGATIVE; URINE BARBITURATES SCREEN NEGATIVE; URINE BENZODIAZEPINES SCREEN NEGATIVE; URINE COCAINE SCREEN NEGATIVE; URINE MARIJUANA (THC) SCREEN NEGATIVE; URINE METHADONE SCREEN NEGATIVE; URINE PHENCYCLIDINE SCREEN NEGATIVE
--- NOTE | 2018-02-18 15:30 | L&D Progress Notes ---
PROGRESS NOTES Datetime Report Generated by CPN: 02/18/2018 15:30 PROGRESS NOTE Impression Other: possible ROM Procedures- Other: SSE Plan: Continue Present Management Vital Signs : Reviewed; Within Normal Limits Comment: Pt thought that she had ROM; SSE: no pooling VAGINAL EXAM Dilatation: closed MEMBRANES Pooling: Negative Membranes: Intact FETUS A FHR - Baseline: Doppled : 23.5 SIGNATURE SIGNATURE: [id number] Signature: with User ID: [email or web address]
--- NOTE | 2018-02-18 15:57 | RADIOLOGY REPORT (SQ) ---
EXAM DESCRIPTION: U/S OB LIMITED COMPLETED DATE/TIME: 02/18/2018 3:43 pm REASON FOR STUDY: 24w IUP with pelvic pain and PPROM COMPARISON: None. TECHNIQUE: Limited transvaginal and transabdominal grayscale ultrasound for evaluation of specific r equested obstetrical parameters. LIMITATIONS: None. FINDINGS: CERVICAL LENGTH: 4.1 cm Closed. MARY: Largest pocket 5.3 cm cm. FHR: 153 beats per minute. PRESENTATION: Cephalic. PLACENTA: Fundal, grade 1 ANATOMY: Not assessed OTHER: No other significant findings. IMPRESSION: LIMITED OBSTETRICAL ULTRASOUND WITH MEASURED PARAMETERS DELINEATED ABOVE. Trimester of : Second trimester - 13 weeks 1 day to 27 weeks 6 days. TECHNICAL DOCUMENTATION: JOB ID: [id number] [employer]- All Rights Reserved Reading location - IP/workstation name: [facility]
== END 2018-02-18 16:15 | disposition home or self-care (01) ==
LOC: LC 13:32
PROVIDERS: ATTEND Obstetrics & Gynecology
PROC: 4A1HXCZ Monitoring of Products of Conception, Cardiac Rate, External Approach (ICD-10-PCS; principal; 2018-02-18)
DX: O47.02 False labor before 37 completed weeks of gestation, second trimester (principal); Z3A.23 23 weeks gestation of pregnancy
CPT/HCPCS: 87210; 81001; 80307; 76815; 59899; Q0114

== ENCOUNTER 2018-05-02 12:43 | Outpatient (CLI) | payer MEDICAID ==
[2018-05-02 13:21] LABS: APPEARANCE,URINE SLIGHTLY-CLOUDY; BILIRUBIN,URINE NEGATIVE (NEGATIVE); COLOR,URINE YELLOW; GLUCOSE, URINE NEGATIVE (NEGATIVE); KETONES,URINE NEGATIVE (NEGATIVE); LEUKOCYTE ESTERASE,URINE NEGATIVE (NEGATIVE); NITRITE,URINE NEGATIVE (NEGATIVE); PROTEIN,URINE NEGATIVE (NEGATIVE); URINE SPECIFIC GRAVITY 1.017; UROBILINOGEN,URINE NEGATIVE mg/dL (<2.0)
[2018-05-02 13:36] LABS: URINE AMPHETAMINES SCREEN NEGATIVE; URINE BARBITURATES SCREEN NEGATIVE; URINE BENZODIAZEPINES SCREEN NEGATIVE; URINE COCAINE SCREEN NEGATIVE; URINE MARIJUANA (THC) SCREEN NEGATIVE; URINE METHADONE SCREEN NEGATIVE; URINE PHENCYCLIDINE SCREEN NEGATIVE
== END 2018-05-02 13:57 | disposition home or self-care (01) ==
LOC: LC 12:43
PROVIDERS: ATTEND Obstetrics & Gynecology
DX: O47.9 False labor, unspecified (principal); Z3A.34 34 weeks gestation of pregnancy
CPT/HCPCS: 59025; 80307; 81001; 84112

== ENCOUNTER 2018-05-18 21:37 | Outpatient (CLI) | payer MEDICAID ==
--- NOTE | 2018-05-18 21:45 | Non Stress Test Report ---
Non Stress Test Datetime Report Generated by CPN: 05/18/2018 21:45 DEMOGRAPHIC EGA NST: 34.1 INDICATION Indication for Study: Ordered by Provider Indication for Study (NST) Other: lc MONITORING Monitor Explained: Monitor Explained; Test Explained; Patient Verbalized Understanding Time on Monitor: 05/02/2018 12:57 Time off Monitor: 05/02/2018 13:47 NST Duration: 50 NST INTERVENTIONS NST Interventions: PO Hydration; Reposition Patient Physician Notified NST: Dr Oliva BABY A: [id number] BABY A Movement : Present Contraction Frequency : rare FHR Baseline : 140 Accelerations : 15X15 Decelerations : None Variability : Moderate 6-25bpm NST Review: Meets Criteria for Reactive NST NST Review and Verified By : Christy Singh RN NST Results: Reactive NST REPORT Report Trigger: Send Report
[2018-05-18 22:07] LABS: APPEARANCE,URINE CLOUDY; BILIRUBIN,URINE SMALL (NEGATIVE); COLOR,URINE YELLOW; GLUCOSE, URINE NEGATIVE (NEGATIVE); KETONES,URINE NEGATIVE (NEGATIVE); LEUKOCYTE ESTERASE,URINE NEGATIVE (NEGATIVE); NITRITE,URINE NEGATIVE (NEGATIVE); PROTEIN,URINE 100 mg/dL (NEGATIVE); URINE SPECIFIC GRAVITY 1.024
[2018-05-18 22:19] LABS: URINE AMPHETAMINES SCREEN NEGATIVE; URINE BARBITURATES SCREEN NEGATIVE; URINE BENZODIAZEPINES SCREEN NEGATIVE; URINE COCAINE SCREEN NEGATIVE; URINE MARIJUANA (THC) SCREEN NEGATIVE; URINE METHADONE SCREEN NEGATIVE; URINE PHENCYCLIDINE SCREEN NEGATIVE
--- NOTE | 2018-05-18 23:16 | Non Stress Test Report ---
Non Stress Test Datetime Report Generated by CPN: 05/18/2018 23:16 DEMOGRAPHIC Test Number: 2 EGA NST: 34.1 INDICATION Indication for Study: Ordered by Provider Indication for Study: Ordered by Provider Indication for Study (NST) Other: Labor check Indication for Study (NST) Other: lc MONITORING Monitor Explained: Monitor Explained; Test Explained Monitor Explained: Monitor Explained; Test Explained; Patient Verbalized Understanding Time on Monitor: 05/02/2018 12:57 Time off Monitor: 05/02/2018 13:47 NST Duration: 50 NST INTERVENTIONS NST Interventions: PO Hydration; Reposition Patient Physician Notified NST: Dr. Treadwell Physician Notified NST: Dr Oliav BABY A Movement : Present Contraction Frequency : rare FHR Baseline : 140 Accelerations : 15X15 Decelerations : None Variability : Moderate 6-25bpm NST Review: Meets Criteria for Reactive NST NST Review and Verified By : TEDDY Chang Results: Reactive NST REPORT Report Trigger: Send Report
[2018-05-19 01:07] LABS: URINE PROTEIN 12.9 mg/dL (<12)
[2018-05-19 01:07] LABS: ABSOLUTE BASOPHILS # (AUTO) 0.1 10^3/uL (0.0-0.2); ABSOLUTE EOSINOPHILS # (AUTO) 0.3 10^3/uL (0.0-0.6); ABSOLUTE LYMPHOCYTES (AUTO) 2.3 10^3/uL (0.5-4.7); ABSOLUTE MONOCYTES (AUTO) 0.5 10^3/uL (0.1-1.4); ABSOLUTE NEUT (AUTO) 7.2 10^3/uL (1.7-8.2); BASOPHILS % (AUTO) 0.9 % (0-2); EOSINOPHILS % (AUTO) 3.2 % (0-6); HEMATOCRIT 32.8 % (36.0-47.0); HEMOGLOBIN 10.5 g/dL (12.0-15.5); LYMPHOCYTES % (AUTO) 22.2 % (13-45); MEAN CORPUSCULAR HGB CONC 32.2 g/dL (32.0-36.0); MEAN CORPUSCULAR VOLUME 75 fl (80-97); MONOCYTES % (AUTO) 4.5 % (3-13); PLATELET COUNT 290 10^3/uL (150-450); RED BLOOD COUNT 4.39 10^6/uL (3.72-5.28); RED CELL DISTRIBUTION WIDTH 15.4 % (11.5-14.0); SEGMENTED NEUTROPHILS % (AUTO) 69.2 % (42-78); TOTAL CELLS COUNTED % (AUTO) 100 %; WHITE BLOOD COUNT 10.4 10^3/uL (4.0-10.5)
[2018-05-19 01:25] LABS: ALANINE AMINOTRANSFERASE 18 U/L (9-52); ALBUMIN 3.1 g/dL (3.5-5.0); ALKALINE PHOSPHATASE 212 U/L (38-126); ANION GAP 5 (5-19); ASPARTATE AMINO TRANSFERASE 13 U/L (14-36); BILIRUBIN,DIRECT 0.1 mg/dL (0.0-0.4); BILIRUBIN,TOTAL 0.3 mg/dL (0.2-1.3); BLOOD UREA NITROGEN 5 mg/dL (7-20); CALCIUM 8.6 mg/dL (8.4-10.2); CARBON DIOXIDE 24 mmol/L (22-30); CHLORIDE 108 mmol/L (98-107); GLUCOSE 77 mg/dL (75-110); POTASSIUM 4.1 mmol/L (3.6-5.0); TOTAL PROTEIN 5.8 g/dL (6.3-8.2)
== END 2018-05-19 01:05 | disposition home or self-care (01) ==
LOC: LC 21:37
PROVIDERS: ATTEND Obstetrics & Gynecology Gynecology
PROC: 4A1HXCZ Monitoring of Products of Conception, Cardiac Rate, External Approach (ICD-10-PCS; principal; 2018-05-18)
DX: O47.03 False labor before 37 completed weeks of gestation, third trimester (principal); Z3A.36 36 weeks gestation of pregnancy
CPT/HCPCS: 36415; 59025; 80053; 80307; 81001; 82570; 83615; 84156; 84550; 85025

== ENCOUNTER 2018-06-03 05:02 | Inpatient (IN) | payer MEDICAID ==
[2018-06-02 13:16] LABS: ABSOLUTE EOSINOPHILS # (AUTO) 0.1 10^3/uL (0.0-0.6); ABSOLUTE LYMPHOCYTES (AUTO) 1.6 10^3/uL (0.5-4.7); ABSOLUTE MONOCYTES (AUTO) 0.4 10^3/uL (0.1-1.4); ABSOLUTE NEUT (AUTO) 7.2 10^3/uL (1.7-8.2); BASOPHILS % (AUTO) 0.3 % (0-2); EOSINOPHILS % (AUTO) 0.7 % (0-6); HEMATOCRIT 34.8 % (36.0-47.0); HEMOGLOBIN 11.3 g/dL (12.0-15.5); LYMPHOCYTES % (AUTO) 17.1 % (13-45); MEAN CORPUSCULAR HEMOGLOBIN 24.3 pg (27.0-33.4); MEAN CORPUSCULAR HGB CONC 32.5 g/dL (32.0-36.0); MEAN CORPUSCULAR VOLUME 75 fl (80-97); MONOCYTES % (AUTO) 4.3 % (3-13); PLATELET COUNT 284 10^3/uL (150-450); RED BLOOD COUNT 4.67 10^6/uL (3.72-5.28); RED CELL DISTRIBUTION WIDTH 17.1 % (11.5-14.0); SEGMENTED NEUTROPHILS % (AUTO) 77.6 % (42-78); TOTAL CELLS COUNTED % (AUTO) 100 %; WHITE BLOOD COUNT 9.3 10^3/uL (4.0-10.5)
[2018-06-02 13:21] LABS: APPEARANCE,URINE CLOUDY; BILIRUBIN,URINE SMALL (NEGATIVE); COLOR,URINE AMBER; GLUCOSE, URINE NEGATIVE (NEGATIVE); KETONES,URINE NEGATIVE (NEGATIVE); LEUKOCYTE ESTERASE,URINE NEGATIVE (NEGATIVE); NITRITE,URINE NEGATIVE (NEGATIVE); PROTEIN,URINE >=500 mg/dL (NEGATIVE); URINE SPECIFIC GRAVITY 1.026
[2018-06-02 13:33] LABS: URINE AMPHETAMINES SCREEN NEGATIVE; URINE BARBITURATES SCREEN NEGATIVE; URINE BENZODIAZEPINES SCREEN NEGATIVE; URINE COCAINE SCREEN NEGATIVE; URINE MARIJUANA (THC) SCREEN NEGATIVE; URINE METHADONE SCREEN NEGATIVE; URINE PHENCYCLIDINE SCREEN NEGATIVE
[~2018-06-03 05:02] MED LIST: LACTATED RINGERS 1000 ML IV PRN; LIDOCAINE 0.5% INJ-PF (5 MG/ML) 50 ML SDV SUBCUT PRN
[2018-06-03] MEDS ORDERED: CEFAZOLIN 1 GM/D5W RTU 1 GM/50 ML RTUPB IV ONE (06:40)
[2018-06-03] MEDS ORDERED: RINGERS SOLUTION,LACTATED 1,000 ML IV PRN (07:12)
[2018-06-03] MEDS ORDERED: CITRIC ACID/SODIUM CITRATE ORAL SOLN 15 ML UDCUP ONE (07:35)
[2018-06-03] MEDS ORDERED: ACETAMINOPHEN 1,000 MG/100 ML RTUPB IV ONE (07:35)
[2018-06-03] MEDS ORDERED: MIDAZOLAM 2 MG/2 ML INJ ONE (07:35)
[2018-06-03] MEDS ORDERED: OXYTOCIN/NORMAL SALINE 20 UNIT/1,000 ML RTUINJ ONE ×2 (07:35→09:18)
[2018-06-03] MEDS ORDERED: PHENYLEPHRINE HCL INJ/PF 10 MG/1 ML SDV ONE (07:35)
[2018-06-03] MEDS ORDERED: ONDANSETRON HCL INJ/PF 4 MG/2 ML SDV ONE (07:35)
[2018-06-03] MEDS ORDERED: FENTANYL CITRATE INJ/PF 100 MCG/2 ML AMPUL IV PRN ×3 (08:14)
[2018-06-03] MEDS ORDERED: MORPHINE SULFATE 10 MG/ML INJ IV PRN (08:14)
[2018-06-03] MEDS ORDERED: PROMETHAZINE HCL INJ 25 MG/1 ML VIAL IV PRN ×2 (08:14→08:30)
[2018-06-03] MEDS ORDERED: DIPHENHYDRAMINE HCL 50 MG/ML VIAL IV PRN (08:14)
[2018-06-03] MEDS ORDERED: MEPERIDINE HCL/PF INJ 25 MG/1 ML DISP.SYRIN IV PRN (08:14)
[2018-06-03] MEDS ORDERED: ACETAMINOPHEN 325 MG TABLET PO PRN (08:30)
[2018-06-03] MEDS ORDERED: ACETAMINOPHEN 1,000 MG/100 ML RTUPB IV PRN (08:30)
[2018-06-03] MEDS ORDERED: OXYTOCIN/NORMAL SALINE 20 UNIT/1,000 ML RTUINJ IV PRN (08:30)
[2018-06-03] MEDS ORDERED: MEASLES,MUMPS&RUBELLA VACC/PF 0.5 ML VIAL SUBCUT PRN (08:30)
[2018-06-03] MEDS ORDERED: OXYCODONE-ACETAMINOPHEN 5-325 MG TABLET PO PRN (08:30)
[2018-06-03] MEDS ORDERED: SIMETHICONE 80 MG TAB.CHEW PO PRN (08:30)
[2018-06-03] MEDS ORDERED: DIPH/PERTUSS(ACELL)/TETANUS VAC/PF 0.5 ML SYR (>=10YO) IM PRN (08:30)
[2018-06-03] MEDS ORDERED: MORPHINE SULFATE 10 MG/ML INJ IM PRN (08:30)
--- NOTE | 2018-06-03 08:34 | PDOC DELIVERY SUMMARY ---
Delivery Summary - Maternal Hx : IV Hx # Term Pregnancies: 1 Hx # Pregnancies: 1 GERMANIA: 06/10/18 Gestational Age: 39 Risk Factors: Previous , Other Ruptured Membranes: AROM Time of Rupture: 08:06 Fluids: Clear - Delivery Presentation: Vertex Heart Rate Monitoring: Done Pre-Operatively Uterine Contraction Monitoring: External Support Person Present: Yes Location: OR : Scheduled, Repeat Placenta: Within Normal Limits Nuchal Cord: Yes - x2 Delivery of Placenta Date: 06/03/18 Delivery of Placenta Time: 08:06 - Medications Type of Anesthesia:: Spinal - Infant Assess and Care Baby 1 Male Delivery of Infant Date: 06/03/18 Delivery of Infant Time: 08:06 at 1 minute: 9 at 5 minutes: 9 Preprinted Number On Band: [id number] Skin to Skin: No To Nursery At: 08:14 Mode of Transport: Bassinet Infant Delivery Weight: 2,505 Delivery Length: 18.5 in - Delivery Personnel Grommet Worker: KEDAR HU RN: JULIENNE LEIGH RN: EVELYN EUGENE MD: ZACK OWEN
--- NOTE | 2018-06-03 08:52 | OPERATIVE REPORT E ---
Operative Report NAME: DENY GARCIA : 1985 AGE: 33Y DATE OF SURGERY: 06/03/2018 ROOM: 227 PREOPERATIVE DIAGNOSIS: IUP at term with prior section. POSTOPERATIVE DIAGNOSIS: IUP at term with prior section. OPERATION: Repeat low-transverse with delivery of viable male, 5 pounds 8 ounces, Apgars of 9 and 9. SURGEON: Estrella OWEN M.D. ANESTHESIA: Spinal. ESTIMATED BLOOD LOSS: Less than 600 mL. TISSUE REMOVED: Placenta. PROCEDURE: The patient was placed in a supine position with a roll under her right side, prepped and draped in a sterile fashion. A Pfannenstiel incision was made through an existing Pfannenstiel eschar and the incision extended through subcutaneous tissue with sharp dissection. Fascia was sharply divided. Parietal peritoneum was entered with sharp dissection. The uterus was nicked in the midline and extended bilaterally. was then delivered through the uteroabdominal incision. Nose and mouth were suctioned with bulb syringe, cord was clamped, and was passed from the table. It was noted that the had a nuchal cord as well as a body cord. The uterus was closed using 2 layers of 0 Vicryl, the first a running stitch and the second a Lembert stitch imbricating the first layer. Multiple areas of bleeding were noted and controlled with [id number] sutures of 0 Vicryl. The fascia was then closed with 0 Vicryl, and the skin was closed with subcu absorbable josette. The old eschar was removed prior to closing the skin. The patient's urine remained clear all throughout the procedure. She was taken to recovery in good condition. DICTATING PHYSICIAN: Estrella OWEN M.D. [id number] PHY#: [id number] ID: [id number] JOB#: [id number] ACCT: [id number] cc:Estrella OWEN M.D. >
[2018-06-03] MEDS ORDERED: KETOROLAC TROMETHAMINE INJ/PF 30 MG/1 ML SDV ONE (09:31)
[2018-06-03] MEDS: FENTANYL CITRATE INJ/PF 100 MCG/2 ML AMPUL ONE ×2 (09:55→10:00)
[2018-06-03] MEDS: KETOROLAC TROMETHAMINE INJ/PF 30 MG/1 ML SDV IV SCH (18:36)
[2018-06-03] MEDS: DOCUSATE SODIUM 100 MG CAPSULE PO SCH ×2 (18:37→18:38)
[2018-06-03] MEDS: PRENATAL VITAMIN W DHA CAPSULE PO SCH (20:19)
[2018-06-04] MEDS: OXYCODONE-ACETAMINOPHEN 5-325 MG TABLET PO PRN ×3 (00:37→16:13)
[2018-06-04] MEDS: KETOROLAC TROMETHAMINE INJ/PF 30 MG/1 ML SDV IV SCH ×2 (02:27→12:02)
[2018-06-04] MEDS: DIPHENHYDRAMINE HCL 25 MG CAPSULE PO PRN ×2 (08:31→16:13)
[2018-06-04 10:08] LABS: HEMATOCRIT 30.6 % (36.0-47.0); HEMOGLOBIN 9.8 g/dL (12.0-15.5); MEAN CORPUSCULAR HEMOGLOBIN 24.3 pg (27.0-33.4); MEAN CORPUSCULAR VOLUME 76 fl (80-97); PLATELET COUNT 248 10^3/uL (150-450); RED BLOOD COUNT 4.03 10^6/uL (3.72-5.28); RED CELL DISTRIBUTION WIDTH 17.4 % (11.5-14.0)
--- NOTE | 2018-06-04 11:50 | PDOC PROGRESS REPORT ---
Subjective-OB Progress Note for:: 06/04/18 Physical Exam (OB) Vital Signs: Temp Pulse Resp BP Pulse Ox 97.8 F 73 18 133/99 H 96 06/04/18 08:28 06/04/18 08:28 06/04/18 08:28 06/04/18 08:28 06/04/18 08:28 Intake & Output 06/03/18 06/04/18 06/05/18 06:59 06:59 06:59 Intake Total 2390 Output Total 2422 Balance -32 Weight 70.3 kg - PIH/Pre-Eclampsia Headache: Absent Epigastric Pain: No Visual Changes: No - Dressing Removed: No Incision: Open Closure Type: Surgical Glue - Lochia Lochia Amount: Scant < 10 ml Lochia Color: Rubra/Red - Abdomen Description: Tender, Soft Hernia Present: No Bowel Sounds: Normoactive Flatus Presence: Present Stool: No Fundal Description: Firm, Midline Fundal Height: u/u - u/2 Objective-Diagnostic Laboratory: 06/04/18 09:04 06/04/18 09:04 WBC 12.0 H RBC 4.03 Hgb 9.8 L Hct 30.6 L MCV 76 L MCH 24.3 L MCHC 32.0 RDW 17.4 H Plt Count 248
[2018-06-04] MEDS: IBUPROFEN 800 MG TABLET PO SCH ×3 (12:00→23:50)
[2018-06-04] MEDS: PRENATAL VITAMIN W DHA CAPSULE PO SCH (12:00)
[2018-06-04] MEDS: DOCUSATE SODIUM 100 MG CAPSULE PO SCH ×2 (12:00→19:29)
[2018-06-05] MEDS: IBUPROFEN 800 MG TABLET PO SCH (05:27)
[2018-06-05] MEDS: DOCUSATE SODIUM 100 MG CAPSULE PO SCH (10:09)
[2018-06-05] MEDS: PRENATAL VITAMIN W DHA CAPSULE PO SCH (10:09)
--- NOTE | 2018-06-05 11:35 | PDOC PROGRESS REPORT ---
Subjective-OB Progress Note for:: 06/05/18 Subjective: Ready to go home. Physical Exam (OB) Vital Signs: Temp Pulse Resp BP Pulse Ox 97.9 F 86 16 131/86 H 98 06/05/18 09:09 06/05/18 09:09 06/05/18 09:09 06/05/18 09:09 06/05/18 09:09 Intake & Output 06/04/18 06/05/18 06/06/18 06:59 06:59 06:59 Intake Total 2390 450 Output Total 2422 Balance -32 450 - PIH/Pre-Eclampsia Headache: Absent Epigastric Pain: No Visual Changes: No - Dressing Removed: No Incision: Open, Well Approximated Closure Type: Surgical Glue - Lochia Lochia Amount: Scant < 10 ml Lochia Color: Rubra/Red - Abdomen Description: Tender, Soft Hernia Present: No Bowel Sounds: Normoactive Flatus Presence: Present Stool: No Fundal Description: Firm, Midline Fundal Height: u/u - u/2 Objective-Diagnostic Laboratory: 06/04/18 09:04
--- NOTE | 2018-06-05 11:45 | PDOC DISCHARGE SUMMARY ---
Final Diagnosis Discharge Date: 06/05/18 - Final Diagnosis (1) Delivery by elective caesarean section Is this a current diagnosis for this admission?: Yes (2) Positive GBS test Is this a current diagnosis for this admission?: Yes (3) Is this a current diagnosis for this admission?: Yes Discharge Data - Discharge Medication Prescriptions: Acetaminophen with Codeine [Tylenol with Codeine #2 Tablet] 1 tab PO Q4 PRN #20 tab PRN Reason: Docusate Sodium [Colace 100 mg Capsule] 100 mg PO BID #30 capsule Ferrous Sulfate 325 mg PO BID #60 tablet. Ibuprofen [Motrin 800 mg Tablet] 800 mg PO Q6 #30 tablet Home Medications: Acetaminophen with Codeine [Tylenol with Codeine #2 Tablet] 1 tab PO Q4 PRN #20 tab 06/05/18 Docusate Sodium [Colace 100 mg Capsule] 100 mg PO BID #30 capsule 06/05/18 Ferrous Sulfate 325 mg PO BID #60 tablet. 06/05/18 Ibuprofen [Motrin 800 mg Tablet] 800 mg PO Q6 #30 tablet 06/05/18 Gestational Age: 39 wks Reason(s) for Admission: Ceasarean Section-Repeat Procedures: Ultrasound Intrapartum Procedure(s): : Low Cervical, Transverse - [place] Data Baby 1 Male at 1 minute: 9 at 5 minutes: 9 Weight: 2505 kg Home with Mother: Yes Complications: No - Diagnosis Test Laboratory: Temp Pulse Resp BP Pulse Ox 97.9 F 86 16 131/86 H 98 06/05/18 09:09 06/05/18 09:09 06/05/18 09:09 06/05/18 09:09 06/05/18 09:09 06/02/18 06/02/18 06/04/18 12:33 12:35 09:04 RBC 4.67 4.03 Hgb 11.3 L 9.8 L Hct 34.8 L 30.6 L Urine Opiates Screen NEGATIVE - Discharge information/Instructions Discharge Activity: Activity As Tolerated, Balance Activity w/Rest, No Lifting Over 10 Pounds, No Lifting/Push/Pulling, Non-Ambulatory Child, Pelvic Rest, Slowly Increase Activity, No tub bath Discharge Diet: Regular Disposition: HOME, SELF-CARE Follow up with: [facility] in: 1, Weeks
[2018-06-05 13:51] VITALS: BP 124/84
== END 2018-06-05 14:35 | disposition home or self-care (01) | DRG 788 ==
LOC: 2S 05:02
PROVIDERS: ADMIT Obstetrics & Gynecology Gynecology; ATTEND Obstetrics & Gynecology Gynecology
PROC: 10D00Z1 Extraction of Products of Conception, Low, Open Approach (ICD-10-PCS; principal; 2018-06-03 07:45)
DX: O34.211 Maternal care for low transverse scar from previous cesarean delivery (principal); O99.824 Streptococcus B carrier state complicating childbirth; N85.8 Other specified noninflammatory disorders of uterus; Z3A.39 39 weeks gestation of pregnancy; Z37.0 Single live birth
CPT/HCPCS: 1961; 36415; 59025; 80307; 81001; 85025; 85027; 86850; 86900; 86901; 94799; J0131; J1885; J2250; J2270; J2370; J2405; J2550; J2590; J3010; J3490

== ENCOUNTER 2019-02-10 11:27 | Emergency (ER) | payer SELFPAY ==
[2019-02-10 12:18] LABS: HEMATOCRIT 33.9 % (36.0-47.0); HEMOGLOBIN 10.9 g/dL (12.0-15.5); MEAN CORPUSCULAR HEMOGLOBIN 25.8 pg (27.0-33.4); MEAN CORPUSCULAR HGB CONC 32.2 g/dL (32.0-36.0); MEAN CORPUSCULAR VOLUME 80 fl (80-97); RED BLOOD COUNT 4.23 10^6/uL (3.72-5.28); RED CELL DISTRIBUTION WIDTH 13.7 % (11.5-14.0)
[2019-02-10] MEDS ORDERED: ASPIRIN 81 MG TABLET, CHEWABLE PO ONE (12:23)
--- NOTE | 2019-02-10 12:23 | ER Document Report ---
ED Medical Screen (RME) - General Chief Complaint: Chest Pain Stated Complaint: CHEST PAIN Time Seen by Provider: 02/10/19 12:20 Primary Care Provider: MARIAELENA CROWELL MD [Primary Care Provider] - Follow up as needed Mode of Arrival: Ambulatory Information source: Patient Notes: 33-year-old female presents to ED for complaint of shortness of breath and chest pain that started this morning denies any cough congestion or any other symptoms. States last menstrual period was last week. Pain is right in the center epigastric area. We will get blood work. Patient is alert oriented respirations regular nonlabored speaking in full sentences walks with even steady gait. I have greeted and performed a rapid initial assessment of this patient. A comprehensive ED assessment and evaluation of the patient, analysis of test results and completion of medical decision making process will be conducted by an additional ED providers. TRAVEL OUTSIDE OF THE [place] IN LAST 30 DAYS: No - Related Data Allergies/Adverse Reactions: No Known Drug Allergies Allergy (Verified 02/10/19 11:45) Past Medical History - Social History Chew tobacco use (# tins/day): No Frequency of alcohol use: None Drug Abuse: None - Past Medical History Cardiac Medical History: Denies: Hx Pulmonary Embolism Pulmonary Medical History: Reports: Hx Asthma - MILD Denies: Hx Sleep Apnea, Hx Tuberculosis Renal/ Medical History: Denies: Hx Peritoneal Dialysis Infectious Medical History: Denies: Hx HIV Past Surgical History: Reports: Hx Appendectomy, Hx Section - x3 Physical Exam - Vital signs Vitals: Temp Pulse Resp BP Pulse Ox 99.2 F 77 18 108/53 L 98 02/10/19 11:46 02/10/19 11:46 02/10/19 11:46 02/10/19 11:46 02/10/19 11:46 Course - Vital Signs Vital signs: Temp Pulse Resp BP Pulse Ox 99.2 F 77 18 108/53 L 98 02/10/19 11:46 02/10/19 11:46 02/10/19 11:46 02/10/19 11:46 02/10/19 11:46 - Laboratory Result Diagrams: 02/10/19 12:04 02/10/19 12:04 Laboratory results interpreted by me: 02/10/19 12:04 Hgb 10.9 L Hct 33.9 L MCH 25.8 L Doctor's Discharge - Discharge Referrals: MARIAELENA CROWELL MD [Primary Care Provider] - Follow up as needed
[2019-02-10 12:32] LABS: APPEARANCE,URINE SLIGHTLY-CLOUDY; BILIRUBIN,URINE NEGATIVE (NEGATIVE); COLOR,URINE YELLOW; GLUCOSE, URINE NEGATIVE (NEGATIVE); KETONES,URINE NEGATIVE (NEGATIVE); LEUKOCYTE ESTERASE,URINE NEGATIVE (NEGATIVE); NITRITE,URINE NEGATIVE (NEGATIVE); PROTEIN,URINE NEGATIVE (NEGATIVE); URINE SPECIFIC GRAVITY 1.019; UROBILINOGEN,URINE NEGATIVE mg/dL (<2.0)
--- NOTE | 2019-02-10 12:34 | RADIOLOGY REPORT (SQ) ---
EXAM DESCRIPTION: CHEST SINGLE VIEW COMPLETED DATE/TIME: 02/10/2019 12:19 pm REASON FOR STUDY: chest pain/SOB COMPARISON: 06/23/2017 EXAM PARAMETERS: NUMBER OF VIEWS: One view. TECHNIQUE: Single frontal radiographic view of the chest acquired. RADIATION DOSE: NA LIMITATIONS: None. FINDINGS: LUNGS AND PLEURA: No opacities, masses or pneumothorax. No pleural effusion. MEDIASTINUM AND HILAR STRUCTURES: No masses. Contour normal. HEART AND VASCULAR STRUCTURES: Heart normal in size. Normal vasculature. BONES: No acute findings. HARDWARE: None in the chest. OTHER: No other significant finding. IMPRESSION: NO ACUTE RADIOGRAPHIC FINDING IN THE CHEST. TECHNICAL DOCUMENTATION: JOB ID: [id number] [employer]- All Rights Reserved Reading location - IP/workstation name: [email or web address]
[2019-02-10 12:42] LABS: ALBUMIN 4.3 g/dL (3.5-5.0); ALKALINE PHOSPHATASE 71 U/L (38-126); ANION GAP 9 (5-19); ASPARTATE AMINO TRANSFERASE 20 U/L (14-36); BILIRUBIN,DIRECT 0.1 mg/dL (0.0-0.4); BILIRUBIN,TOTAL 0.3 mg/dL (0.2-1.3); BLOOD UREA NITROGEN 9 mg/dL (7-20); CALCIUM 9.4 mg/dL (8.4-10.2); CARBON DIOXIDE 25 mmol/L (22-30); CHLORIDE 105 mmol/L (98-107); GLUCOSE 92 mg/dL (75-110); POTASSIUM 4.5 mmol/L (3.6-5.0); TOTAL PROTEIN 7.8 g/dL (6.3-8.2)
[2019-02-10 13:16] LABS: INTERNATIONAL RATION (INR) 0.99; PROTHROMBIN TIME 13.1 SEC (11.4-15.4)
[2019-02-10 13:40] LABS: CREATINE KINASE MB 0.29 ng/mL (<4.55)
[2019-02-10 13:41] LABS: TROPONIN I < 0.012 ng/mL
[2019-02-10 13:51] LABS: ABSOLUTE LYMPHOCYTES# (MANUAL) 0.9 10^3/uL (0.5-4.7); ABSOLUTE MONOCYTES # (MANUAL) 0.5 10^3/uL (0.1-1.4); BASOPHILS % (MANUAL) 0 % (0-2); EOSINOPHILS % (MANUAL) 1 % (0-6); LYMPHOCYTES % (MANUAL) 9 % (13-45); MONOCYTES % (MANUAL) 5 % (3-13); SEGMENTED NEUTROPHILS % (MAN) 85 % (42-78); TOTAL CELLS COUNTED 100
[2019-02-10 13:52] LABS: PLATELET COMMENT ADEQUATE
[2019-02-10 13:53] LABS: TEAR DROP CELLS 1+
[2019-02-10 13:54] LABS: PLATELET COUNT 404 10^3/uL (150-450)
[2019-02-10] MEDS ORDERED: IPRATROPIUM/ALBUTEROL 0.5-2.5 MG/3 ML AMPUL NEB ONE (14:38)
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
[2019-02-10 18:42] VITALS: BP 98/62
--- NOTE | 2019-02-11 07:21 | EKG REPORT ---
SEVERITY:- BORDERLINE ECG - SINUS RHYTHM BORDERLINE T ABNORMALITIES, ANTERIOR LEADS : Confirmed by: Homar Ponce 11-Feb-2019 07:20:58
== END 2019-02-10 18:46 | disposition home or self-care (01) ==
LOC: ER 11:27
DX: R07.9 Chest pain, unspecified (principal); J45.909 Unspecified asthma, uncomplicated; R06.02 Shortness of breath
CPT/HCPCS: 36415; 82553; 82550; 84443; 85610; 85730; 81025; 80053; 81001; 84484; 85379; 71045; J7620; 93005; 93010

== ENCOUNTER 2019-02-20 12:05 | Emergency (ER) | payer SELFPAY ==
[2019-02-20 12:12] VITALS: BP 114/61
--- NOTE | 2019-02-20 12:38 | ER Document Report ---
HPI - HPI Time Seen by Provider: 02/20/19 12:16 Context: Patient is a 33-year-old female presents to the emergency department with a chief complaint of sore throat. Patient reports this is been present for 4 days. Patient reports she is also been losing her voice and becoming more hoarse. Patient reports she has had a productive cough with yellow sputum. Patient denies fever. Patient denies nausea, vomiting or diarrhea. Patient states she does not smoke cigarettes. Patient reports she has used [id number] Mucinex which did help with her symptoms. Patient denies difficulty breathing or swallowing. Patient reports her and son have had similar symptoms. Patient denies significant past medical history. - REPRODUCTIVE Reproductive: DENIES: : Past Medical History - General Information source: Patient - Social History Smoking Status: Never Smoker Lives with: Spouse/Significant other Family History: Reviewed & Not Pertinent - Past Medical History Cardiac Medical History: Reports: None Denies: Hx Pulmonary Embolism Pulmonary Medical History: Reports: Hx Asthma - MILD Denies: Hx Sleep Apnea, Hx Tuberculosis EENT Medical History: Reports: None Neurological Medical History: Reports: None Endocrine Medical History: Reports: None Renal/ Medical History: Reports: None. Denies: Hx Peritoneal Dialysis Malignancy Medical History: Reports: None GI Medical History: Reports: None Musculoskeletal Medical History: Reports None Skin Medical History: Reports None Psychiatric Medical History: Reports: None Traumatic Medical History: Reports: None Infectious Medical History: Reports: None. Denies: Hx HIV Past Surgical History: Reports: Hx Appendectomy, Hx Section - x3 Vertical Provider Document - CONSTITUTIONAL Agree With Documented VS: Yes Exam Limitations: No Limitations General Appearance: No Apparent Distress - INFECTION CONTROL TRAVEL OUTSIDE OF THE [place] IN LAST 30 DAYS: No - HEENT HEENT: Atraumatic, Normal ENT Exam, Normocephalic, PERRLA Notes: No sinus tenderness. No rhinorrhea. TMs unremarkable, no erythema or bulging, landmarks easily visualized. No tragus or mastoid tenderness. Hoarse voice. - NECK Notes: Normal inspection. No cervical lymphadenopathy. - RESPIRATORY Respiratory: Breath Sounds Normal, No Respiratory Distress - CARDIOVASCULAR Cardiovascular: Regular Rate, Regular Rhythm - GI/ABDOMEN Gastrointestinal: Abdomen Soft, Abdomen Non-Tender - NEURO Level of Consciousness: Awake, Alert, Appropriate - DERM Integumentary: Warm, Dry, No Rash Course - Re-evaluation Re-evalutation: 02/20/19 12:40 Patient symptoms consistent with a viral laryngitis and upper respiratory infection. A strep was obtained prior to my physical examination. This test is pending. 02/20/19 14:20 This strep test was negative. I did discuss the results with the patient and family member. I did inform the patient that her symptoms are consistent with laryngitis. Patient given strict return precautions. - Vital Signs Vital signs: Temp Pulse Resp BP Pulse Ox 99.6 F 93 16 114/61 98 02/20/19 12:10 02/20/19 12:10 02/20/19 12:10 02/20/19 12:10 02/20/19 12:10 - Laboratory Laboratory results interpreted by me: 02/20/19 12:52 Laboratory 02/20/19 12:16 Group A Strep Rapid NEGATIVE Discharge - Discharge Clinical Impression: Sore throat and laryngitis Condition: Stable Disposition: HOME, SELF-CARE Additional Instructions: Today you are seen in emergency department for sore throat. Your symptoms are consistent with laryngitis which is an inflammation of the vocal cords. This should improve on its own. Please drink plenty of fluids to stay hydrated. Take Tylenol and ibuprofen as needed for pain. Your strep test was negative. Please return to emergency department if you develop a fever, productive cough that is more severe, shortness of breath or if you do not improve within the next week. Laryngitis You have laryngitis. This is an inflammation of the vocal cords which leads to inability to speak normally. Any irritation to the airway can cause laryngitis. Causes include virus infection, smoke inhalation, allergy, or even trauma due to excessive talking or shouting. Rest your voice. Any vibration of the vocal cords increases and prolongs the swelling. Humidity is helpful, especially cool mist. Avoid dust, chemical fumes, and smoke. Avoid decongestants and antihistamines -- these will make you worse. You can expect to recover completely in a few days. See the physician if new symptoms develop, such as high fever, productive cough, shortness of breath, or if you do not improve within a few days. Prescriptions: Benzonatate [Tessalon Perles 100 mg Capsule] 100 mg PO Q8HP PRN #21 capsule PRN Reason: Forms: Return to Work Referrals: [facility] [Outside] - Follow up as needed [facility] [Provider Group] - Follow up as needed
[2019-02-20] MEDS ORDERED: BENZONATATE 100 MG CAPSULE PO ONE (12:54)
== END 2019-02-20 13:07 | disposition home or self-care (01) ==
LOC: ER 12:05
DX: J02.9 Acute pharyngitis, unspecified (principal); J04.0 Acute laryngitis; R05 Cough
CPT/HCPCS: 87070; 87880; 99283

== ENCOUNTER 2019-07-07 12:22 | Emergency (ER) | payer SELFPAY ==
[2019-07-07] MEDS ORDERED: METHYLPREDNISOLONE ACETATE INJ 40 MG/1 ML ML IM ONE (13:25)
[2019-07-07] MEDS ORDERED: ALBUTEROL SULFATE 0.083% NEB 2.5 MG/3 ML AMPUL NEB ONE (13:26)
--- NOTE | 2019-07-07 14:50 | ER Document Report ---
HPI - HPI Time Seen by Provider: 07/07/19 13:21 Onset: Other - This is a 34-year-old female presented to the emergency room today stating that she had been short of breath over the course of several days with an asthma attack that is progressively worsened. She does have a history of asthma does have a rescue inhaler she has a nebulizer at home however does not have any medication. Pain Level: 0 Associated Symptoms: None Exacerbated by: Denies Relieved by: Denies - CONSTITUTIONAL Constitutional: DENIES: Fever, Chills - CARDIOVASCULAR Cardiovascular: REPORTS: Chest pain - RESPIRATORY Respiratory: REPORTS: Trouble Breathing - REPRODUCTIVE Reproductive: DENIES: : Past Medical History - General Information source: Patient - Social History Smoking Status: Never Smoker Frequency of alcohol use: None Drug Abuse: None Family History: Reviewed & Not Pertinent Patient has suicidal ideation: No Patient has homicidal ideation: No - Past Medical History Cardiac Medical History: Denies: Hx Pulmonary Embolism Pulmonary Medical History: Reports: Hx Asthma - MILD Denies: Hx Sleep Apnea, Hx Tuberculosis Renal/ Medical History: Denies: Hx Peritoneal Dialysis Infectious Medical History: Denies: Hx HIV Past Surgical History: Reports: Hx Appendectomy, Hx Section - x3 Vertical Provider Document - CONSTITUTIONAL Agree With Documented VS: Yes - INFECTION CONTROL TRAVEL OUTSIDE OF THE [place] IN LAST 30 DAYS: No - HEENT HEENT: Atraumatic - NECK Neck: Normal Inspection Course - Vital Signs Vital signs: Temp Pulse Resp BP Pulse Ox 98.7 F 78 16 114/60 100 07/07/19 12:39 07/07/19 12:39 07/07/19 12:39 07/07/19 12:39 07/07/19 12:39 - Laboratory Laboratory results interpreted by me: 07/07/19 14:45 Laboratory 07/07/19 13:43 Troponin I < 0.012 - EKG Interpretation by Me EKG shows normal: Sinus rhythm Rate: Normal Rhythm: NSR - Transfer of Care Notes: 07/07/19 14:45 Upon being provided albuterol nebulizers here in the department her EKG was reviewed. Her troponin was negative. Patient was provided the after mentioned inhaler. She was also provided with a steroid injection. Patient feels much better and feels as though she is now able to manage her asthma attack. She does request a prescription for albuterol for her nebulizer at home. I also will provide her with a prescription for rescue inhaler as she is not sure of her refill status on that. She will also be getting prednisone orally for 5 days. Patient should return to the emergency room absolutely immediately for any change or worsening condition. Discharge - Discharge Clinical Impression: Asthma exacerbation attacks Qualifiers: Asthma severity: moderate Asthma persistence: persistent Qualified Code(s): J45.41 - Moderate persistent asthma with (acute) exacerbation Condition: Good Disposition: ADMITTED INPATIENT Prescriptions: Prednisone [Deltasone 20 mg Tablet] 3 tab PO DAILY 5 Days #15 tablet Albuterol Sulfate [Proair HFA Inhalation Aerosol 8.5 gm MDI] 2 puff IH Q4H PRN #1 mdi PRN Reason: Albuterol Sulfate [Ventolin 0.042% Neb 1.25 mg/3 mL Ampul] 1.25 mg NEB PRN PRN #120 vial.neb PRN Reason: asthma
[2019-07-07 15:28] VITALS: BP 121/72
--- NOTE | 2019-07-07 19:03 | EKG REPORT ---
SEVERITY:- BORDERLINE ECG - SINUS RHYTHM BORDERLINE T ABNORMALITIES, ANTERIOR LEADS : Confirmed by: Homar Ponce 07-Jul-2019 19:03:02
== END 2019-07-07 15:26 | disposition other institution (70) ==
LOC: ER 12:22
DX: J45.41 Moderate persistent asthma with (acute) exacerbation (principal)
CPT/HCPCS: 93005; 94640; 99285; 96372; 36415; 84484; 93010; J1030

== ENCOUNTER 2019-09-13 18:12 | Emergency (ER) | payer SELFPAY ==
--- NOTE | 2019-09-13 19:18 | ER Document Report ---
ED Medical Screen (RME) - General Chief Complaint: Near Syncope Stated Complaint: SYNCOPAL EPISODE Time Seen by Provider: 09/13/19 19:17 Mode of Arrival: Ambulatory Information source: Patient Notes: 34-year-old female presented to ED for syncopal episode at work and then again at home. She states while at work he felt her body get really hot and then she felt like she was trembling inside and the next thing she knew she woke up with her boss over top of her waking her up. She states she felt like she was tumbling for the next 2 hours until she went home. She states after she went home she had the same similar incident happened again so she called the nurse line and they told her to come to the emergency room and be examined. She is alert oriented respirations regular and unlabored speaking in full sentences. She states she is not feeling like she is trembling or hot or cold at this time. She does not have any past medical history except for 4 C-sections and appendectomy. I have greeted and performed a rapid initial assessment of this patient. A comprehensive ED assessment and evaluation of the patient, analysis of test results and completion of medical decision making process will be conducted by an additional ED providers. TRAVEL OUTSIDE OF THE [place] IN LAST 30 DAYS: No - Related Data Allergies/Adverse Reactions: No Known Drug Allergies Allergy (Verified 02/10/19 11:45) Past Medical History - Past Medical History Cardiac Medical History: Denies: Hx Pulmonary Embolism Pulmonary Medical History: Reports: Hx Asthma - MILD Denies: Hx Sleep Apnea, Hx Tuberculosis Renal/ Medical History: Denies: Hx Peritoneal Dialysis Infectious Medical History: Denies: Hx HIV Past Surgical History: Reports: Hx Appendectomy, Hx Section - x3 Physical Exam - Vital signs Vitals: Temp Pulse Resp BP Pulse Ox 98.7 F 81 18 119/53 L 98 09/13/19 18:18 09/13/19 18:18 09/13/19 18:18 09/13/19 18:18 09/13/19 18:18 Course - Vital Signs Vital signs: Temp Pulse Resp BP Pulse Ox 98.7 F 81 18 119/53 L 98 09/13/19 18:18 09/13/19 18:18 09/13/19 18:18 09/13/19 18:18 09/13/19 18:18
[2019-09-13 20:23] LABS: ABSOLUTE EOSINOPHILS # (AUTO) 0.3 10^3/uL (0.0-0.6); ABSOLUTE LYMPHOCYTES (AUTO) 2.3 10^3/uL (0.5-4.7); ABSOLUTE MONOCYTES (AUTO) 0.9 10^3/uL (0.1-1.4); ABSOLUTE NEUT (AUTO) 4.7 10^3/uL (1.7-8.2); BASOPHILS % (AUTO) 0.5 % (0-2); EOSINOPHILS % (AUTO) 3.4 % (0-6); HEMATOCRIT 32.9 % (36.0-47.0); HEMOGLOBIN 11.1 g/dL (12.0-15.5); LYMPHOCYTES % (AUTO) 28.6 % (13-45); MEAN CORPUSCULAR HEMOGLOBIN 26.5 pg (27.0-33.4); MEAN CORPUSCULAR HGB CONC 33.8 g/dL (32.0-36.0); MEAN CORPUSCULAR VOLUME 79 fl (80-97); MONOCYTES % (AUTO) 10.4 % (3-13); PLATELET COUNT 386 10^3/uL (150-450); RED BLOOD COUNT 4.19 10^6/uL (3.72-5.28); RED CELL DISTRIBUTION WIDTH 15.5 % (11.5-14.0); SEGMENTED NEUTROPHILS % (AUTO) 57.1 % (42-78); TOTAL CELLS COUNTED % (AUTO) 100 %; WHITE BLOOD COUNT 8.2 10^3/uL (4.0-10.5)
[2019-09-13 20:36] LABS: APPEARANCE,URINE CLOUDY; BILIRUBIN,URINE NEGATIVE (NEGATIVE); COLOR,URINE YELLOW; GLUCOSE, URINE NEGATIVE (NEGATIVE); KETONES,URINE NEGATIVE (NEGATIVE); LEUKOCYTE ESTERASE,URINE NEGATIVE (NEGATIVE); NITRITE,URINE POSITIVE (NEGATIVE); PROTEIN,URINE NEGATIVE (NEGATIVE); URINE SPECIFIC GRAVITY 1.019; UROBILINOGEN,URINE NEGATIVE mg/dL (<2.0)
[2019-09-13 20:43] LABS: ALBUMIN 4.1 g/dL (3.5-5.0); ALKALINE PHOSPHATASE 65 U/L (38-126); ANION GAP 6 (5-19); ASPARTATE AMINO TRANSFERASE 25 U/L (14-36); BILIRUBIN,TOTAL 0.2 mg/dL (0.2-1.3); BLOOD UREA NITROGEN 8 mg/dL (7-20); CARBON DIOXIDE 26 mmol/L (22-30); CHLORIDE 106 mmol/L (98-107); CREATINE KINASE 102 U/L (30-135); GLUCOSE 81 mg/dL (75-110); POTASSIUM 3.8 mmol/L (3.6-5.0); TOTAL PROTEIN 7.7 g/dL (6.3-8.2)
[2019-09-13 20:59] LABS: CREATINE KINASE MB < 0.22 ng/mL (<4.55); TROPONIN I < 0.012 ng/mL
--- NOTE | 2019-09-13 23:44 | ER Document Report ---
ED Dizziness/Weakness - General Chief Complaint: Near Syncope Stated Complaint: SYNCOPAL EPISODE Time Seen by Provider: 09/13/19 19:17 Mode of Arrival: Ambulatory Information source: Patient Notes: 34-year-old female presenting with generalized weakness and near syncopal episodes today. Occurred at work while she was sitting down she felt weak and lightheaded. Uncertain if she lost consciousness. Second episode occurred after returning home from work and she was laying down. Reports that her fianc found her unconscious for 4 minutes. Reports no falls. No seizure-like activity. no postictal state. States that this is the first time that she has ever felt like this before. Denies chest pain, heart palpitations. She denies any fevers, chills, headache, shortness of breath, chest pain, abdominal pain. Reports a history of anemia. Is not taking any iron supplements at this time. TRAVEL OUTSIDE OF THE [place] IN LAST 30 DAYS: No - Related Data Allergies/Adverse Reactions: No Known Drug Allergies Allergy (Verified 02/10/19 11:45) Past Medical History - General Information source: Patient Last Menstrual Period: 08/22/19 - Social History Smoking Status: Never Smoker Frequency of alcohol use: None Drug Abuse: None Family History: Reviewed & Not Pertinent Patient has homicidal ideation: No - Medical History Medical History: Other - anemia - Past Medical History Cardiac Medical History: Denies: Hx Pulmonary Embolism Pulmonary Medical History: Reports: Hx Asthma - MILD Denies: Hx Sleep Apnea, Hx Tuberculosis Renal/ Medical History: Denies: Hx Peritoneal Dialysis Infectious Medical History: Denies: Hx HIV Past Surgical History: Reports: Hx Appendectomy, Hx Section - 4 Review of Systems - Review of Systems Constitutional: Weakness. denies: Fever EENT: No symptoms reported Cardiovascular: Syncope, Dizziness, Lightheaded Respiratory: No symptoms reported Gastrointestinal: No symptoms reported Genitourinary: No symptoms reported Female Genitourinary: No symptoms reported Hematologic/Lymphatic: Anemia Physical Exam - Vital signs Vitals: Temp Pulse Resp BP Pulse Ox 98.7 F 81 18 119/53 L 98 09/13/19 18:18 09/13/19 18:18 09/13/19 18:18 09/13/19 18:18 09/13/19 18:18 Interpretation: Hypotensive - General General appearance: Appears well - HEENT Head: Normocephalic, Atraumatic Pupils: PERRL - Respiratory Respiratory status: No respiratory distress Breath sounds: Normal - Cardiovascular Rhythm: Regular Heart sounds: Normal auscultation Friction rub: No - Abdominal Inspection: Normal Distension: No distension Bowel sounds: Normal Tenderness: Nontender Course - Re-evaluation Re-evalutation: 09/14/19 00:37 Patient believes that her symptoms could be due to exhaustion as she works 2 full-time jobs, is working 7 days a week, and has 4 children to take care of. 09/14/19 05:15 Patient's EKG shows no significant changes compared to prior EKG. Discussed with patient that her urinalysis shows a UTI. Patient denies any dysuria, suprapubic pain. Patient desires treatment for asymptomatic UTI. Will prescribe Macrobid for patient. Reports a history of chronic UTIs. 09/14/19 05:19 Discussed with patient's no significant findings on other lab results. Again patient believes that her symptoms were due to being fatigued. Low suspicion for cardiac etiology of her presyncopal episodes as patient has normal EKG and normal physical exam findings. Discussed diagnosis of microcytic anemia. Recommend establishing care with a PCM in regards to her symptoms and her microcytic anemia within 7 days. Patient can return to the ER if her symptoms worsen or she develops new symptoms. Patient acknowledged and verbalized understanding of plan. 09/14/19 05:22 - Vital Signs Vital signs: Temp Pulse Resp BP Pulse Ox 98.4 F 72 16 99/60 L 98 09/13/19 23:00 09/13/19 23:55 09/13/19 23:00 09/13/19 23:55 09/13/19 23:00 - Laboratory Result Diagrams: 09/13/19 20:00 09/13/19 20:00 Laboratory results interpreted by me: 09/13/19 09/13/19 20:00 20:00 Hgb 11.1 L Hct 32.9 L MCV 79 L MCH 26.5 L RDW 15.5 H Urine Nitrite POSITIVE H Discharge - Discharge Clinical Impression: Pre-syncope, Microcytic anemia UTI (urinary tract infection) Qualifiers: Urinary tract infection type: acute cystitis Hematuria presence: without hematuria Qualified Code(s): N30.00 - Acute cystitis without hematuria Condition: Stable Disposition: HOME, SELF-CARE Instructions: Urinary Tract Infection ([facility]), Nitrofurantoin ([facility]), Near Syncopal Episode ([facility]), Anemia ([facility]) Additional Instructions: Follow-up with primary care provider within 7 days. Return precautions included worsening symptoms or development of new symptoms. Prescriptions: Nitrofurantoin Monohyd/M-Cryst [Macrobid 100 mg Capsule] 100 mg PO BID 5 Days #10 cap Forms: Return to Work
[2019-09-14 01:32] VITALS: BP 108/66
--- NOTE | 2019-09-14 07:49 | EKG REPORT ---
SEVERITY:- BORDERLINE ECG - SINUS RHYTHM BORDERLINE T ABNORMALITIES, ANTERIOR LEADS : Confirmed by: Earline Renteria MD 14-Sep-2019 07:48:55
== END 2019-09-14 01:32 | disposition home or self-care (01) ==
LOC: ER 18:12
DX: N30.00 Acute cystitis without hematuria (principal); D50.9 Iron deficiency anemia, unspecified; R55 Syncope and collapse; R53.1 Weakness; R42 Dizziness and giddiness; J45.909 Unspecified asthma, uncomplicated
CPT/HCPCS: 36415; 80053; 81001; 81025; 82550; 82553; 82962; 84484; 85025; 93005; 93010; 99284

== ENCOUNTER 2019-10-19 15:06 | Emergency (ER) | payer SELFPAY ==
[2019-10-19 15:12] VITALS: BP 134/70
--- NOTE | 2019-10-19 16:07 | ER Document Report ---
ED General - General Chief Complaint: Toothache Stated Complaint: TOOTHACHE Notes: Patient is a 34-year-old -[place] female with no reported past medical history presents the emergency department the chief complaint of dental pain for the past 2 weeks. States is the right lower posterior most molar. She admits to wisdom tooth extraction about 3 years ago but no problems since. She states over the past 2 weeks she had some leftover penicillin that she took about twice a day for about a week without any significant change. She states that her insurance is currently suspended but she is expecting it to reactivate anytime in the near future and that her dentist will see her once her insurance is active. She denies any tongue or throat swelling. Denies any difficulty breathing or trouble with secretions. Denies any fever chills or night sweats. No nausea, vomiting or diarrhea. TRAVEL OUTSIDE OF THE [place] IN LAST 30 DAYS: No - Related Data Allergies/Adverse Reactions: No Known Drug Allergies Allergy (Verified 02/10/19 11:45) Past Medical History - Social History Smoking Status: Never Smoker Frequency of alcohol use: None Drug Abuse: None Family History: Reviewed & Not Pertinent Patient has homicidal ideation: No - Past Medical History Cardiac Medical History: Denies: Hx Pulmonary Embolism Pulmonary Medical History: Reports: Hx Asthma - MILD Denies: Hx Sleep Apnea, Hx Tuberculosis Renal/ Medical History: Denies: Hx Peritoneal Dialysis Infectious Medical History: Denies: Hx HIV Past Surgical History: Reports: Hx Appendectomy, Hx Section - 4 Review of Systems - Review of Systems EENT: Dental problem -: Yes All other systems reviewed and negative Physical Exam - Vital signs Vitals: Temp 99 F 10/19/19 15:07 - General General appearance: Appears well, Alert In distress: None - HEENT Head: Normocephalic, Atraumatic Eyes: Normal Conjunctiva: Normal Extraocular movements intact: Yes Pupils: PERRL Ears: Normal External canal: Normal Tympanic membrane: Normal Nasal: Normal Mouth/Lips: Normal Mucous membranes: Normal Teeth diagram: 1 - tender to percussion, no obvious abnormality otherwise Pharynx: Normal, Other - Patent airway. Handling secretions well. No sublingual sublingual swelling. No trismus. Neck: Normal. No: Lymphadenopathy - Respiratory Respiratory status: No respiratory distress Chest status: Nontender Breath sounds: Normal Chest palpation: Normal - Cardiovascular Rhythm: Regular Heart sounds: Normal auscultation - Neurological Neuro grossly intact: Yes Cognition: Normal Orientation: AAOx4 - Psychological Associated symptoms: Normal affect, Normal mood - Skin Skin Temperature: Warm Skin Moisture: Dry Skin Color: Normal Course - Re-evaluation Re-evalutation: 10/19/19 16:14 History and physical consistent with a likely dental abscess. Patient was started on clindamycin, we discussed importance of probiotics while on this medication. She will call her dentist as soon as possible for outpatient follow-up and continued care. Advise she return here any ER immediately with any new, persistent or worsening symptoms. She verbalized understood and agreed. - Vital Signs Vital signs: Temp Pulse Resp BP Pulse Ox 99.0 F 88 14 134/70 H 97 10/19/19 15:10 10/19/19 15:10 10/19/19 15:10 10/19/19 15:10 10/19/19 15:10 Discharge - Discharge Clinical Impression: Dentalgia, Dental abscess Condition: Stable Disposition: HOME, SELF-CARE Instructions: Toothache ([facility]) Additional Instructions: Follow-up with your dentist in 2 to 3 days for reevaluation. Return here or any ER immediately with any new, persistent or worsening symptoms. Prescriptions: Tramadol HCl [Ultram 50 mg Tablet] 50 mg PO Q6HP PRN #12 tablet PRN Reason: Clindamycin HCl 300 mg PO QID #40 capsule Chlorhexidine Gluconate [Peridex] 15 ml MM QID #120 mouthwash
== END 2019-10-19 16:14 | disposition home or self-care (01) ==
LOC: ER 15:06
DX: K04.7 Periapical abscess without sinus (principal); K08.9 Disorder of teeth and supporting structures, unspecified
CPT/HCPCS: 99282